=== PATIENT | male | born 1965 | race African-American/Black ===

== ENCOUNTER 2016-12-12 08:16 | Inpatient (IN) | payer OTHER ==
[2016-12-12 10:19] VITALS: BMI 24.5
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
[2016-12-12] MEDS ORDERED: MAGNESIUM CITRATE 300 ML BOTTLE PO PRN (12:52)
[2016-12-12] MEDS ORDERED: LOPERAMIDE HCL 2 MG CAPSULE PO PRN (12:52)
[2016-12-12] MEDS ORDERED: guaiFENesin/D-METHORPHAN HB 10 ML UNIT-DOSE CUPS PO PRN (12:52)
[2016-12-12] MEDS ORDERED: NICOTINE POLACRILEX 4 MG GUM BC PRN (12:52)
[2016-12-12] MEDS ORDERED: P-EPHED 60MG/TRIPROLIDI 2.5MG TABLET PO PRN (12:52)
[2016-12-12] MEDS ORDERED: chlordiazePOXIDE HCL 25 MG CAPSULE PO PRN (12:52)
[2016-12-12] MEDS ORDERED: MAGNESIUM HYDROX 2400MG/30ML ORAL SUSPENSION 30 ML CUP PO PRN (12:52)
[2016-12-12] MEDS ORDERED: MENTHOL/PHENOL 1 EACH UD MM PRN (12:52)
[2016-12-12] MEDS ORDERED: ACETAMINOPHEN 325 MG TABLET (FP) PO PRN (12:52)
[2016-12-12] MEDS ORDERED: MAG HYDROX/AL HYDROX/SIMETH 30 ML UNIT-DOSE CUP PO PRN (12:52)
[2016-12-12] MEDS ORDERED: IBUPROFEN 400 MG TABLET (FP) PO PRN (12:52)
[2016-12-12] MEDS: NICOTINE 21 MG/24 HOURS TOPICAL PATCH TD SCH (13:56)
[2016-12-12] MEDS ORDERED: METHADONE HCL 10 MG TABLET (FOR DETOX USE ONLY) PO ONE ×2 (14:00→23:00)
[2016-12-12] MEDS ORDERED: chlordiazePOXIDE HCL 25 MG CAPSULE PO ONE (14:00)
[2016-12-12] MEDS: metFORMIN HCL 500 MG TABLET (FP) PO SCH (16:30)
[2016-12-12 17:09] LABS: HIV 1 & 2 AB NEGATIVE; HIV 1 AGp24 NEGATIVE
[2016-12-12 17:23] LABS: MCH 28.5 pg (25.7-33.7); MCHC 32.2 g/dl (32.0-35.9); MEAN CELL VOLUME 88.5 fl (80-96); MEAN PLT VOLUME 8.7 fl (7.5-11.1); PLATELET COUNT 280 K/MM3 (134-434); RDW 15.7 % (11.9-15.9); WHITE BLOOD COUNT 10.4 K/mm3 (4.0-10.0)
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
[2016-12-12 17:35] LABS: URINE APPEARANCE CLEAR; URINE BILIRUBIN NEGATIVE (NEGATIVE); URINE BLOOD NEGATIVE (NEGATIVE); URINE COLOR YELLOW; URINE GLUCOSE (UA) NEGATIVE (NEGATIVE); URINE KETONE NEGATIVE (NEGATIVE); URINE LEUK ESTERASE NEGATIVE (NEGATIVE); URINE NITRITE NEGATIVE (NEGATIVE); URINE PROTEIN NEGATIVE (NEGATIVE); URINE UROBILINOGEN NEGATIVE mg/dL (0.2-1.0)
[2016-12-12] MEDS: chlordiazePOXIDE HCL 25 MG CAPSULE PO SCH ×2 (17:35→22:51)
[2016-12-12 17:50] LABS: CALCIUM 8.9 mg/dL (8.5-10.1)
[2016-12-12 17:57] LABS: ALBUMIN 3.6 g/dl (3.4-5.0); ALK PHOS 182 U/L (45-117); ANION GAP 7 (8-16); BILIRUBIN,TOTAL 0.4 mg/dL (0.2-1.0); CO2 33 mmol/L (21-32); CREATININE 0.9 mg/dL (0.7-1.3); GLUCOSE,RANDOM 104 mg/dL (74-106); SGOT/AST 172 U/L (15-37); SGPT/ALT 192 U/L (12-78); TOT PROT 6.6 g/dl (6.4-8.2)
[2016-12-12] MEDS: MIRTAZAPINE 15 MG TABLET (FP) PO SCH (22:50)
[2016-12-12] MEDS: THIAMINE HCL 100 MG TABLET (FP) PO SCH (22:50)
[2016-12-12] MEDS: QUEtiapine FUMARATE 200 MG TABLET PO SCH (22:50)
[2016-12-12] MEDS: diphenhydrAMINE HCL 50 MG CAPSULE PO PRN (22:51)
[2016-12-13] MEDS: chlordiazePOXIDE HCL 25 MG CAPSULE PO SCH ×4 (06:03→22:55)
[2016-12-13] MEDS: glipiZIDE-XL 2.5 MG TAB.ER.24 PO SCH (07:52)
[2016-12-13] MEDS: metFORMIN HCL 500 MG TABLET (FP) PO SCH ×2 (07:52→17:14)
[2016-12-13] MEDS ORDERED: METHADONE HCL 10 MG TABLET (FOR DETOX USE ONLY) PO SCH (10:00)
[2016-12-13] MEDS: PRENATAL VITAMINS W/ FOLIC ACID TABLET (FP) PO SCH (11:05)
[2016-12-13] MEDS: NICOTINE 21 MG/24 HOURS TOPICAL PATCH TD SCH (11:05)
--- NOTE | 2016-12-13 12:40 | PN ---
[facility] CIWA - CIWA Score Nausea/Vomitin-No Nausea/No Vomiting Muscle Tremors: 4-Moderate,w/Arms Extend Anxiety: 4-Mod. Anxious/Guarded Agitation: 4-Moderately Restless Paroxysmal Sweats: 1-Minimal Palms Moist Orientation: 0-Oriented Tacttile Disturbances: 3-Moderate Itch/Numb/Burn Auditory Disturbances: 0-None Visual Disturbances: 0-None Headache: 0-None Present CIWA-Ar Total Score: 16 S COWS - Scale Resting Pulse: 2= [place] 101-120 Sweatin= Chills/Flushing Restless Observation: 3= Extraneous Movement Pupil Size: 0= Normal to Room Light Bone or Joint Aches: 4=Acute Joint/Muscle Pain Runny Nose/ Eye Tearin= Nasal Congestion GI Upset > 30mins: 1= Stomach Cramp Tremor Observation of Outstretched Hands: 2= Slight Tremor Visible Yawning Observation: 2= >3x During Session Anxiety or Irritability: 2=Irritable/Anxious Goose Flesh Skin: 0=Smooth Skin COWS Score: 18 [facility] Progress Note (SOAP) Subjective: ANXIETY,IRRITABILITY SWEATS, FATIGUE. Objective: 12/13/16 12:39 Vital Signs Temperature 97.5 F L 12/13/16 10:18 Pulse Rate 116 H 12/13/16 10:18 Respiratory Rate 18 12/13/16 10:18 Blood Pressure 123/77 12/13/16 10:18 O2 Sat by Pulse Oximetry (%) Laboratory Last Values WBC 10.4 K/mm3 (4.0-10.0) H 12/12/16 13:00 RBC 4.55 M/mm3 (4.00-5.60) 12/12/16 13:00 Hgb 13.0 GM/dL (11.7-16.9) 12/12/16 13:00 Hct 40.3 % (35.4-49) 12/12/16 13:00 MCV 88.5 fl (80-96) 12/12/16 13:00 MCH 28.5 pg (25.7-33.7) 12/12/16 13:00 MCHC 32.2 g/dl (32.0-35.9) 12/12/16 13:00 RDW 15.7 % (11.9-15.9) 12/12/16 13:00 Plt Count 280 K/MM3 (134-434) 12/12/16 13:00 MPV 8.7 fl (7.5-11.1) 12/12/16 13:00 Sodium 143 mmol/L (136-145) 12/12/16 13:00 Potassium 4.4 mmol/L (3.5-5.1) 12/12/16 13:00 Chloride 103 mmol/L (98-107) 12/12/16 13:00 Carbon Dioxide 33 mmol/L (21-32) H D 12/12/16 13:00 Anion Gap 7 (8-16) L 12/12/16 13:00 BUN 18 mg/dL (7-18) 12/12/16 13:00 Creatinine 0.9 mg/dL (0.7-1.3) 12/12/16 13:00 Creat Clearance w eGFR > 60 (>60) 12/12/16 13:00 POC Glucometer 131 UNITS (()) 12/13/16 06:02 Random Glucose 104 mg/dL (74-106) D 12/12/16 13:00 Calcium 8.9 mg/dL (8.5-10.1) 12/12/16 13:00 Total Bilirubin 0.4 mg/dL (0.2-1.0) D 12/12/16 13:00 AST 172 U/L (15-37) H D 12/12/16 13:00 ALT 192 U/L (12-78) H D 12/12/16 13:00 Alkaline Phosphatase 182 U/L (45-117) H D 12/12/16 13:00 Total Protein 6.6 g/dl (6.4-8.2) 12/12/16 13:00 Albumin 3.6 g/dl (3.4-5.0) 12/12/16 13:00 Urine Color Yellow 12/12/16 14:00 Urine Appearance Clear 12/12/16 14:00 Urine pH 5.0 (5.0-8.0) 12/12/16 14:00 Ur Specific [place] 1.025 (1.005-1.025) 12/12/16 14:00 Urine Protein Negative (NEGATIVE) 12/12/16 14:00 Urine Glucose (UA) Negative (NEGATIVE) 12/12/16 14:00 Urine Ketones Negative (NEGATIVE) 12/12/16 14:00 Urine Blood Negative (NEGATIVE) 12/12/16 14:00 Urine Nitrite Negative (NEGATIVE) 12/12/16 14:00 Urine Bilirubin Negative (NEGATIVE) 12/12/16 14:00 Urine Urobilinogen Negative mg/dL (0.2-1.0) 12/12/16 14:00 Ur Leukocyte Esterase Negative (NEGATIVE) 12/12/16 14:00 RPR Titer Nonreactive (NONREACTIVE) 12/12/16 13:00 HIV 1&2 Antibody Screen Negative 12/12/16 11:45 HIV P24 Antigen Negative 12/12/16 11:45 LABS NOTED Assessment: 12/13/16 12:39 WITHDRAWAL SX Plan: CONTINUE DETOX
--- NOTE | 2016-12-13 12:45 | EKG ---
Test Reason : Blood Pressure : / mmHG Vent. Rate : 087 BPM Atrial Rate : 087 BPM P-R Int : 178 ms QRS Dur : 086 ms QT Int : 354 ms P-R-T Axes : 065 044 030 degrees QTc Int : 425 ms NORMAL SINUS RHYTHM NORMAL ECG NO PREVIOUS ECGS AVAILABLE Confirmed by HELEN TIM, CHERELLE ([id number]) on 12/13/2016 12:44:34 PM Referred By: Ti Bermeo Confirmed By:CHERELLE CERVANTES MD
[2016-12-13] MEDS: THIAMINE HCL 100 MG TABLET (FP) PO SCH (22:55)
[2016-12-13] MEDS: QUEtiapine FUMARATE 200 MG TABLET PO SCH (22:55)
[2016-12-13] MEDS: MIRTAZAPINE 15 MG TABLET (FP) PO SCH (22:55)
[2016-12-13] MEDS: diphenhydrAMINE HCL 50 MG CAPSULE PO PRN (22:56)
[2016-12-14] MEDS: chlordiazePOXIDE HCL 25 MG CAPSULE PO SCH ×2 (06:00→11:02)
[2016-12-14] MEDS: glipiZIDE-XL 2.5 MG TAB.ER.24 PO SCH (07:54)
[2016-12-14] MEDS: metFORMIN HCL 500 MG TABLET (FP) PO SCH ×2 (07:54→17:15)
[2016-12-14] MEDS ORDERED: SELENIUM SULFIDE 2.5% LOTION 4 OZ. TP SCH (10:00)
[2016-12-14] MEDS: PRENATAL VITAMINS W/ FOLIC ACID TABLET (FP) PO SCH (11:02)
[2016-12-14] MEDS: NICOTINE 21 MG/24 HOURS TOPICAL PATCH TD SCH (11:02)
[2016-12-14] MEDS: METHADONE HCL 5 MG TABLET (FOR DETOX USE ONLY) PO SCH (11:02)
[2016-12-14] MEDS: VITAMINS A AND D TOPICAL OINTMENT 60 GM TUBE TP SCH (11:03)
--- NOTE | 2016-12-14 11:57 | PN ---
[facility] CIWA - CIWA Score Nausea/Vomitin-No Nausea/No Vomiting Muscle Tremors: 4-Moderate,w/Arms Extend Anxiety: 4-Mod. Anxious/Guarded Agitation: 4-Moderately Restless Paroxysmal Sweats: 1-Minimal Palms Moist Orientation: 0-Oriented Tacttile Disturbances: 3-Moderate Itch/Numb/Burn Auditory Disturbances: 0-None Visual Disturbances: 0-None Headache: 0-None Present CIWA-Ar Total Score: 16 [facility] Progress Note (SOAP) Subjective: ANXIETY,SWEATS,TREMORS. Objective: 12/14/16 11:56 Vital Signs Temperature 99.2 F 12/14/16 09:05 Pulse Rate 106 H 12/14/16 09:05 Respiratory Rate 20 12/14/16 09:05 Blood Pressure 133/92 12/14/16 09:05 O2 Sat by Pulse Oximetry (%) Laboratory Last Values WBC 10.4 K/mm3 (4.0-10.0) H 12/12/16 13:00 RBC 4.55 M/mm3 (4.00-5.60) 12/12/16 13:00 Hgb 13.0 GM/dL (11.7-16.9) 12/12/16 13:00 Hct 40.3 % (35.4-49) 12/12/16 13:00 MCV 88.5 fl (80-96) 12/12/16 13:00 MCH 28.5 pg (25.7-33.7) 12/12/16 13:00 MCHC 32.2 g/dl (32.0-35.9) 12/12/16 13:00 RDW 15.7 % (11.9-15.9) 12/12/16 13:00 Plt Count 280 K/MM3 (134-434) 12/12/16 13:00 MPV 8.7 fl (7.5-11.1) 12/12/16 13:00 Sodium 143 mmol/L (136-145) 12/12/16 13:00 Potassium 4.4 mmol/L (3.5-5.1) 12/12/16 13:00 Chloride 103 mmol/L (98-107) 12/12/16 13:00 Carbon Dioxide 33 mmol/L (21-32) H D 12/12/16 13:00 Anion Gap 7 (8-16) L 12/12/16 13:00 BUN 18 mg/dL (7-18) 12/12/16 13:00 Creatinine 0.9 mg/dL (0.7-1.3) 12/12/16 13:00 Creat Clearance w eGFR > 60 (>60) 12/12/16 13:00 POC Glucometer 152 UNITS (()) 12/14/16 06:02 Random Glucose 104 mg/dL (74-106) D 12/12/16 13:00 Calcium 8.9 mg/dL (8.5-10.1) 12/12/16 13:00 Total Bilirubin 0.4 mg/dL (0.2-1.0) D 12/12/16 13:00 AST 172 U/L (15-37) H D 12/12/16 13:00 ALT 192 U/L (12-78) H D 12/12/16 13:00 Alkaline Phosphatase 182 U/L (45-117) H D 12/12/16 13:00 Total Protein 6.6 g/dl (6.4-8.2) 12/12/16 13:00 Albumin 3.6 g/dl (3.4-5.0) 12/12/16 13:00 Urine Color Yellow 12/12/16 14:00 Urine Appearance Clear 12/12/16 14:00 Urine pH 5.0 (5.0-8.0) 12/12/16 14:00 Ur Specific [place] 1.025 (1.005-1.025) 12/12/16 14:00 Urine Protein Negative (NEGATIVE) 12/12/16 14:00 Urine Glucose (UA) Negative (NEGATIVE) 12/12/16 14:00 Urine Ketones Negative (NEGATIVE) 12/12/16 14:00 Urine Blood Negative (NEGATIVE) 12/12/16 14:00 Urine Nitrite Negative (NEGATIVE) 12/12/16 14:00 Urine Bilirubin Negative (NEGATIVE) 12/12/16 14:00 Urine Urobilinogen Negative mg/dL (0.2-1.0) 12/12/16 14:00 Ur Leukocyte Esterase Negative (NEGATIVE) 12/12/16 14:00 RPR Titer Nonreactive (NONREACTIVE) 12/12/16 13:00 HIV 1&2 Antibody Screen Negative 12/12/16 11:45 HIV P24 Antigen Negative 12/12/16 11:45 Assessment: 12/14/16 11:57 WITHDRAWAL SX Plan: CONTINUE DETOX
[2016-12-14] MEDS: chlordiazePOXIDE 5 MG CAPSULE PO SCH ×2 (17:15→22:43)
[2016-12-14] MEDS: THIAMINE HCL 100 MG TABLET (FP) PO SCH (22:43)
[2016-12-14] MEDS: MIRTAZAPINE 15 MG TABLET (FP) PO SCH (22:43)
[2016-12-14] MEDS: QUEtiapine FUMARATE 200 MG TABLET PO SCH (22:43)
[2016-12-15] MEDS: chlordiazePOXIDE 5 MG CAPSULE PO SCH ×2 (05:28→10:21)
[2016-12-15] MEDS: metFORMIN HCL 500 MG TABLET (FP) PO SCH ×2 (08:03→17:27)
[2016-12-15] MEDS: glipiZIDE-XL 2.5 MG TAB.ER.24 PO SCH (08:03)
[2016-12-15] MEDS: VITAMINS A AND D TOPICAL OINTMENT 60 GM TUBE TP SCH (10:21)
[2016-12-15] MEDS: METHADONE HCL 5 MG TABLET (FOR DETOX USE ONLY) PO SCH (10:21)
[2016-12-15] MEDS: PRENATAL VITAMINS W/ FOLIC ACID TABLET (FP) PO SCH (10:21)
[2016-12-15] MEDS: NICOTINE 21 MG/24 HOURS TOPICAL PATCH TD SCH (10:21)
[2016-12-15 10:52] LABS: ALBUMIN 3.1 g/dl (3.4-5.0); ALK PHOS 136 U/L (45-117); ANION GAP 6 (8-16); BILIRUBIN,TOTAL 0.2 mg/dL (0.2-1.0); CALCIUM 8.4 mg/dL (8.5-10.1); CO2 30 mmol/L (21-32); CREATININE 0.8 mg/dL (0.7-1.3); GLUCOSE,RANDOM 123 mg/dL (74-106); SGOT/AST 36 U/L (15-37); SGPT/ALT 89 U/L (12-78)
--- NOTE | 2016-12-15 12:04 | PN ---
[facility] Progress Note (SOAP) Subjective: ANXIETY,SWEATS,CHILLS, FATIGUE. Objective: 12/15/16 12:03 Vital Signs Temperature 97.6 F 12/15/16 10:07 Pulse Rate 11 L 12/15/16 10:07 Respiratory Rate 20 12/15/16 10:07 Blood Pressure 138/88 12/15/16 10:07 O2 Sat by Pulse Oximetry (%) Laboratory Last Values WBC 10.4 K/mm3 (4.0-10.0) H 12/12/16 13:00 RBC 4.55 M/mm3 (4.00-5.60) 12/12/16 13:00 Hgb 13.0 GM/dL (11.7-16.9) 12/12/16 13:00 Hct 40.3 % (35.4-49) 12/12/16 13:00 MCV 88.5 fl (80-96) 12/12/16 13:00 MCH 28.5 pg (25.7-33.7) 12/12/16 13:00 MCHC 32.2 g/dl (32.0-35.9) 12/12/16 13:00 RDW 15.7 % (11.9-15.9) 12/12/16 13:00 Plt Count 280 K/MM3 (134-434) 12/12/16 13:00 MPV 8.7 fl (7.5-11.1) 12/12/16 13:00 Sodium 141 mmol/L (136-145) 12/15/16 07:00 Potassium 4.6 mmol/L (3.5-5.1) 12/15/16 07:00 Chloride 105 mmol/L (98-107) 12/15/16 07:00 Carbon Dioxide 30 mmol/L (21-32) 12/15/16 07:00 Anion Gap 6 (8-16) L 12/15/16 07:00 BUN 13 mg/dL (7-18) D 12/15/16 07:00 Creatinine 0.8 mg/dL (0.7-1.3) 12/15/16 07:00 Creat Clearance w eGFR > 60 (>60) 12/15/16 07:00 POC Glucometer 117 UNITS (()) 12/15/16 05:28 Random Glucose 123 mg/dL (74-106) H 12/15/16 07:00 Calcium 8.4 mg/dL (8.5-10.1) L 12/15/16 07:00 Total Bilirubin 0.2 mg/dL (0.2-1.0) D 12/15/16 07:00 AST 36 U/L (15-37) D 12/15/16 07:00 ALT 89 U/L (12-78) H D 12/15/16 07:00 Alkaline Phosphatase 136 U/L (45-117) H D 12/15/16 07:00 Total Protein 6.0 g/dl (6.4-8.2) L 12/15/16 07:00 Albumin 3.1 g/dl (3.4-5.0) L 12/15/16 07:00 Urine Color Yellow 12/12/16 14:00 Urine Appearance Clear 12/12/16 14:00 Urine pH 5.0 (5.0-8.0) 12/12/16 14:00 Ur Specific [place] 1.025 (1.005-1.025) 12/12/16 14:00 Urine Protein Negative (NEGATIVE) 12/12/16 14:00 Urine Glucose (UA) Negative (NEGATIVE) 12/12/16 14:00 Urine Ketones Negative (NEGATIVE) 12/12/16 14:00 Urine Blood Negative (NEGATIVE) 12/12/16 14:00 Urine Nitrite Negative (NEGATIVE) 12/12/16 14:00 Urine Bilirubin Negative (NEGATIVE) 12/12/16 14:00 Urine Urobilinogen Negative mg/dL (0.2-1.0) 12/12/16 14:00 Ur Leukocyte Esterase Negative (NEGATIVE) 12/12/16 14:00 RPR Titer Nonreactive (NONREACTIVE) 12/12/16 13:00 HIV 1&2 Antibody Screen Negative 12/12/16 11:45 HIV P24 Antigen Negative 12/12/16 11:45 Assessment: 12/15/16 12:04 WITHDRAWAL SX Plan: CONTINUE DETOX
[2016-12-15] MEDS: chlordiazePOXIDE HCL 10 MG CAPSULE PO SCH ×2 (17:27→22:43)
[2016-12-15] MEDS: MIRTAZAPINE 15 MG TABLET (FP) PO SCH (22:43)
[2016-12-15] MEDS: QUEtiapine FUMARATE 200 MG TABLET PO SCH (22:43)
[2016-12-15] MEDS: THIAMINE HCL 100 MG TABLET (FP) PO SCH (22:43)
[2016-12-16] MEDS: chlordiazePOXIDE HCL 10 MG CAPSULE PO SCH ×2 (05:36→10:03)
[2016-12-16] MEDS: metFORMIN HCL 500 MG TABLET (FP) PO SCH ×2 (07:01→17:28)
[2016-12-16] MEDS: glipiZIDE-XL 2.5 MG TAB.ER.24 PO SCH (07:01)
[2016-12-16] MEDS ORDERED: METHADONE HCL 10 MG TABLET (FOR DETOX USE ONLY) PO SCH (10:00)
[2016-12-16] MEDS: PRENATAL VITAMINS W/ FOLIC ACID TABLET (FP) PO SCH (10:03)
[2016-12-16] MEDS: NICOTINE 21 MG/24 HOURS TOPICAL PATCH TD SCH (10:03)
[2016-12-16] MEDS: VITAMINS A AND D TOPICAL OINTMENT 60 GM TUBE TP SCH (10:04)
[2016-12-16] MEDS ORDERED: ONDANSETRON *ODT* 4 MG TABLET SL PRN (12:45)
[2016-12-16] MEDS ORDERED: BACITRACIN 0.9 GM PACKET TP SCH (13:00)
--- NOTE | 2016-12-16 21:05 | PN ---
[facility] Progress Note (SOAP) Subjective: Interrupted Sleep, Anxious, H/A, Nausea. Objective: PT. A & O X 3, OBSERVED AMBULATING ON UNIT. NO ACUTE DISTRESS. PT. DENIES CHEST PAIN. 12/16/16 21:03 Vital Signs Temperature 97.8 F 12/16/16 17:54 Pulse Rate 98 H 12/16/16 17:54 Respiratory Rate 18 12/16/16 17:54 Blood Pressure 114/66 12/16/16 17:54 O2 Sat by Pulse Oximetry (%) Laboratory Tests 12/12/16 12/12/16 12/12/16 10:30 11:45 13:00 WBC 10.4 H RBC 4.55 Hgb 13.0 Hct 40.3 MCV 88.5 MCH 28.5 MCHC 32.2 RDW 15.7 Plt Count 280 MPV 8.7 Sodium Potassium Chloride Carbon Dioxide Anion Gap BUN Creatinine Creat Clearance w eGFR POC Glucometer 109 Random Glucose Calcium Total Bilirubin AST ALT Alkaline Phosphatase Total Protein Albumin Urine Color Urine Appearance Urine pH Ur Specific [place] Urine Protein Urine Glucose (UA) Urine Ketones Urine Blood Urine Nitrite Urine Bilirubin Urine Urobilinogen Ur Leukocyte Esterase RPR Titer HIV 1&2 Antibody Screen Negative HIV P24 Antigen Negative 12/12/16 12/12/16 12/12/16 13:00 13:00 14:00 WBC RBC Hgb Hct MCV MCH MCHC RDW Plt Count MPV Sodium 143 Potassium 4.4 Chloride 103 Carbon Dioxide 33 H D Anion Gap 7 L BUN 18 Creatinine 0.9 Creat Clearance w eGFR > 60 POC Glucometer Random Glucose 104 D Calcium 8.9 Total Bilirubin 0.4 D AST 172 H D ALT 192 H D Alkaline Phosphatase 182 H D Total Protein 6.6 Albumin 3.6 Urine Color Yellow Urine Appearance Clear Urine pH 5.0 Ur Specific [place] 1.025 Urine Protein Negative Urine Glucose (UA) Negative Urine Ketones Negative Urine Blood Negative Urine Nitrite Negative Urine Bilirubin Negative Urine Urobilinogen Negative Ur Leukocyte Esterase Negative RPR Titer Nonreactive HIV 1&2 Antibody Screen HIV P24 Antigen 12/12/16 12/13/16 12/13/16 16:24 06:02 16:23 WBC RBC Hgb Hct MCV MCH MCHC RDW Plt Count MPV Sodium Potassium Chloride Carbon Dioxide Anion Gap BUN Creatinine Creat Clearance w eGFR POC Glucometer 148 131 143 Random Glucose Calcium Total Bilirubin AST ALT Alkaline Phosphatase Total Protein Albumin Urine Color Urine Appearance Urine pH Ur Specific [place] Urine Protein Urine Glucose (UA) Urine Ketones Urine Blood Urine Nitrite Urine Bilirubin Urine Urobilinogen Ur Leukocyte Esterase RPR Titer HIV 1&2 Antibody Screen HIV P24 Antigen 12/14/16 12/14/16 12/15/16 06:02 16:18 00:30 WBC RBC Hgb Hct MCV MCH MCHC RDW Plt Count MPV Sodium Potassium Chloride Carbon Dioxide Anion Gap BUN Creatinine Creat Clearance w eGFR POC Glucometer 152 124 195 Random Glucose Calcium Total Bilirubin AST ALT Alkaline Phosphatase Total Protein Albumin Urine Color Urine Appearance Urine pH Ur Specific [place] Urine Protein Urine Glucose (UA) Urine Ketones Urine Blood Urine Nitrite Urine Bilirubin Urine Urobilinogen Ur Leukocyte Esterase RPR Titer HIV 1&2 Antibody Screen HIV P24 Antigen 12/15/16 12/15/16 12/15/16 05:28 07:00 16:18 WBC RBC Hgb Hct MCV MCH MCHC RDW Plt Count MPV Sodium 141 Potassium 4.6 Chloride 105 Carbon Dioxide 30 Anion Gap 6 L BUN 13 D Creatinine 0.8 Creat Clearance w eGFR > 60 POC Glucometer 117 145 Random Glucose 123 H Calcium 8.4 L Total Bilirubin 0.2 D AST 36 D ALT 89 H D Alkaline Phosphatase 136 H D Total Protein 6.0 L Albumin 3.1 L Urine Color Urine Appearance Urine pH Ur Specific [place] Urine Protein Urine Glucose (UA) Urine Ketones Urine Blood Urine Nitrite Urine Bilirubin Urine Urobilinogen Ur Leukocyte Esterase RPR Titer HIV 1&2 Antibody Screen HIV P24 Antigen 12/16/16 12/16/16 05:35 16:19 WBC RBC Hgb Hct MCV MCH MCHC RDW Plt Count MPV Sodium Potassium Chloride Carbon Dioxide Anion Gap BUN Creatinine Creat Clearance w eGFR POC Glucometer 151 111 Random Glucose Calcium Total Bilirubin AST ALT Alkaline Phosphatase Total Protein Albumin Urine Color Urine Appearance Urine pH Ur Specific [place] Urine Protein Urine Glucose (UA) Urine Ketones Urine Blood Urine Nitrite Urine Bilirubin Urine Urobilinogen Ur Leukocyte Esterase RPR Titer HIV 1&2 Antibody Screen HIV P24 Antigen LABS NOTED. RESULTS OF REPEAT CMP NOTED. 12/16/16 21:06 Assessment: 12/16/16 21:04 WITHDRAWAL SYMPTOMS. Plan: CONTINUE DETOX.
[2016-12-16] MEDS: QUEtiapine FUMARATE 200 MG TABLET PO SCH (22:38)
[2016-12-16] MEDS: MIRTAZAPINE 15 MG TABLET (FP) PO SCH (22:38)
[2016-12-16] MEDS: THIAMINE HCL 100 MG TABLET (FP) PO SCH (22:38)
[2016-12-16] MEDS: diphenhydrAMINE HCL 50 MG CAPSULE PO PRN (22:40)
[2016-12-17] MEDS ORDERED: METHADONE HCL 5 MG TABLET (FOR DETOX USE ONLY) PO SCH (06:00)
[2016-12-17 06:25] VITALS: BP 146/89; PULSE 92; TEMP 98.1
[2016-12-17] MEDS: metFORMIN HCL 500 MG TABLET (FP) PO SCH (07:43)
[2016-12-17] MEDS: glipiZIDE-XL 2.5 MG TAB.ER.24 PO SCH (07:45)
--- NOTE | 2016-12-17 19:15 | DS ---
[facility] Detox Discharge Summary Admission Date: 12/12/16 Discharge Date: 12/17/16 - History Present History: Alcohol Dependence, Opioid Dependence Additional Comments: PATIENT ADVISED TO CONSIDER LOCAL OUTPATIENT 12-STEP / NA / AA OUTPATIENT PROGRAMS FOR FOLLOW-UP AFTERCARE. PATIENT DISCHARGED FROM UNIT IN STABLE MEDICAL CONDITION. Pertinent Past History: NIDDM, Chronic Low Back Pain, Insomnia. - Physical Exam Results Vital Signs: Vital Signs Temperature 98.1 F 12/17/16 06:24 Pulse Rate 92 H 12/17/16 06:24 Respiratory Rate 18 12/17/16 06:24 Blood Pressure 146/89 12/17/16 06:24 O2 Sat by Pulse Oximetry (%) Pertinent Admission Physical Exam Findings: WITHDRAWAL SYMPTOMS. Laboratory Tests 12/12/16 12/12/16 12/12/16 10:30 11:45 13:00 WBC 10.4 H RBC 4.55 Hgb 13.0 Hct 40.3 MCV 88.5 MCH 28.5 MCHC 32.2 RDW 15.7 Plt Count 280 MPV 8.7 Sodium Potassium Chloride Carbon Dioxide Anion Gap BUN Creatinine Creat Clearance w eGFR POC Glucometer 109 Random Glucose Calcium Total Bilirubin AST ALT Alkaline Phosphatase Total Protein Albumin Urine Color Urine Appearance Urine pH Ur Specific [place] Urine Protein Urine Glucose (UA) Urine Ketones Urine Blood Urine Nitrite Urine Bilirubin Urine Urobilinogen Ur Leukocyte Esterase RPR Titer HIV 1&2 Antibody Screen Negative HIV P24 Antigen Negative 12/12/16 12/12/16 12/12/16 13:00 13:00 14:00 WBC RBC Hgb Hct MCV MCH MCHC RDW Plt Count MPV Sodium 143 Potassium 4.4 Chloride 103 Carbon Dioxide 33 H D Anion Gap 7 L BUN 18 Creatinine 0.9 Creat Clearance w eGFR > 60 POC Glucometer Random Glucose 104 D Calcium 8.9 Total Bilirubin 0.4 D AST 172 H D ALT 192 H D Alkaline Phosphatase 182 H D Total Protein 6.6 Albumin 3.6 Urine Color Yellow Urine Appearance Clear Urine pH 5.0 Ur Specific [place] 1.025 Urine Protein Negative Urine Glucose (UA) Negative Urine Ketones Negative Urine Blood Negative Urine Nitrite Negative Urine Bilirubin Negative Urine Urobilinogen Negative Ur Leukocyte Esterase Negative RPR Titer Nonreactive HIV 1&2 Antibody Screen HIV P24 Antigen 12/12/16 12/13/16 12/13/16 16:24 06:02 16:23 WBC RBC Hgb Hct MCV MCH MCHC RDW Plt Count MPV Sodium Potassium Chloride Carbon Dioxide Anion Gap BUN Creatinine Creat Clearance w eGFR POC Glucometer 148 131 143 Random Glucose Calcium Total Bilirubin AST ALT Alkaline Phosphatase Total Protein Albumin Urine Color Urine Appearance Urine pH Ur Specific [place] Urine Protein Urine Glucose (UA) Urine Ketones Urine Blood Urine Nitrite Urine Bilirubin Urine Urobilinogen Ur Leukocyte Esterase RPR Titer HIV 1&2 Antibody Screen HIV P24 Antigen 12/14/16 12/14/16 12/15/16 06:02 16:18 00:30 WBC RBC Hgb Hct MCV MCH MCHC RDW Plt Count MPV Sodium Potassium Chloride Carbon Dioxide Anion Gap BUN Creatinine Creat Clearance w eGFR POC Glucometer 152 124 195 Random Glucose Calcium Total Bilirubin AST ALT Alkaline Phosphatase Total Protein Albumin Urine Color Urine Appearance Urine pH Ur Specific [place] Urine Protein Urine Glucose (UA) Urine Ketones Urine Blood Urine Nitrite Urine Bilirubin Urine Urobilinogen Ur Leukocyte Esterase RPR Titer HIV 1&2 Antibody Screen HIV P24 Antigen 12/15/16 12/15/16 12/15/16 05:28 07:00 16:18 WBC RBC Hgb Hct MCV MCH MCHC RDW Plt Count MPV Sodium 141 Potassium 4.6 Chloride 105 Carbon Dioxide 30 Anion Gap 6 L BUN 13 D Creatinine 0.8 Creat Clearance w eGFR > 60 POC Glucometer 117 145 Random Glucose 123 H Calcium 8.4 L Total Bilirubin 0.2 D AST 36 D ALT 89 H D Alkaline Phosphatase 136 H D Total Protein 6.0 L Albumin 3.1 L Urine Color Urine Appearance Urine pH Ur Specific [place] Urine Protein Urine Glucose (UA) Urine Ketones Urine Blood Urine Nitrite Urine Bilirubin Urine Urobilinogen Ur Leukocyte Esterase RPR Titer HIV 1&2 Antibody Screen HIV P24 Antigen 12/16/16 12/16/16 12/17/16 05:35 16:19 05:59 WBC RBC Hgb Hct MCV MCH MCHC RDW Plt Count MPV Sodium Potassium Chloride Carbon Dioxide Anion Gap BUN Creatinine Creat Clearance w eGFR POC Glucometer 151 111 146 Random Glucose Calcium Total Bilirubin AST ALT Alkaline Phosphatase Total Protein Albumin Urine Color Urine Appearance Urine pH Ur Specific [place] Urine Protein Urine Glucose (UA) Urine Ketones Urine Blood Urine Nitrite Urine Bilirubin Urine Urobilinogen Ur Leukocyte Esterase RPR Titer HIV 1&2 Antibody Screen HIV P24 Antigen LABS NOTED. - Treatment Hospital Course: Detox Protocol Followed, Detoxed Safely, Responded well, Discharged Condition Good Patient has Accepted a Rehab Referral to: PT GOING HOME; ADVISED TO CONSIDER 12- STEP/NA/AA PROGRAMS FOR AFTERCARE. - Medication Discharge Medications: Ambulatory Orders Glipizide [Glipizide ER] 2.5 mg PO DAILY #30 tab.er.24 02/09/15 Mirtazapine [Remeron -] 15 mg PO HS #30 tablet 07/20/15 Quetiapine Fumarate [Seroquel -] 200 mg PO HS #30 tablet 07/20/15 Mirtazapine [Remeron -] 15 mg PO HS #30 tablet 12/12/16 Quetiapine Fumarate [Seroquel -] 200 mg PO HS #30 tab 12/12/16 Glipizide [Glipizide ER] 2.5 mg PO DAILY #30 tab.er.24 12/17/16 Metformin HCl [Glucophage -] 500 mg PO BID #60 tablet 12/17/16 - Diagnosis (1) Alcohol dependence with withdrawal, uncomplicated Status: Acute (2) Insomnia Status: Acute Qualifiers: Insomnia type: unspecified Qualified Code(s): G47.00 - Insomnia, unspecified (3) Nicotine dependence Status: Chronic Qualifiers: Nicotine product type: cigarettes Substance use status: in withdrawal Qualified Code(s): F17.213 - Nicotine dependence, cigarettes, with withdrawal (4) Opioid dependence with withdrawal Status: Acute (5) Substance induced mood disorder Status: Acute (6) Type 2 diabetes mellitus Status: Chronic Qualifiers: Diabetes mellitus complication status: without complication Diabetes mellitus group home insulin use: without termite technician use Qualified Code(s): E11.9 - Type 2 diabetes mellitus without complications (7) Chronic LBP Status: Chronic Qualifiers: Back pain laterality: unspecified Sciatica presence: unspecified whether sciatica present Qualified Code(s): M54.5 - Low back pain; G89.29 - Other chronic pain - AMA Did Patient Leave Against Medical Advice: No
== END 2016-12-17 09:18 | disposition home or self-care (01) | DRG 773 ==
LOC: YASAS 08:16 → Y3N 11:57
PROVIDERS: ADMIT Internal Medicine Addiction Medicine; ATTEND Internal Medicine Addiction Medicine
PROC: HZ2ZZZZ Detoxification Services for Substance Abuse Treatment (ICD-10-PCS; principal; 2016-12-12)
DX: F11.23 Opioid dependence with withdrawal (principal); F10.230 Alcohol dependence with withdrawal, uncomplicated; F10.220 Alcohol dependence with intoxication, uncomplicated; F17.213 Nicotine dependence, cigarettes, with withdrawal; F19.24 Other psychoactive substance dependence with psychoactive substance-induced mood disorder; E11.9 Type 2 diabetes mellitus without complications; G47.00 Insomnia, unspecified; M54.5 Low back pain; G89.29 Other chronic pain; Z91.013 Allergy to seafood; Z79.84 Long term (current) use of oral hypoglycemic drugs; Z59.0 Homelessness
CPT/HCPCS: 36415; 80053; 81003; 85027; 86593; 87389; 93005; 93010

== ENCOUNTER 2017-03-09 08:42 | Inpatient (IN) | payer OTHER ==
[2017-03-09 08:55] VITALS: BMI 24.4
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
[2017-03-09] MEDS ORDERED: chlordiazePOXIDE HCL 25 MG CAPSULE PO PRN (11:56)
[2017-03-09] MEDS ORDERED: MAGNESIUM CITRATE 300 ML BOTTLE PO PRN (11:56)
[2017-03-09] MEDS ORDERED: P-EPHED 60MG/TRIPROLIDI 2.5MG TABLET PO PRN (11:56)
[2017-03-09] MEDS ORDERED: MAG HYDROX/AL HYDROX/SIMETH 30 ML UNIT-DOSE CUP PO PRN (11:56)
[2017-03-09] MEDS ORDERED: NICOTINE POLACRILEX 4 MG GUM BC PRN (11:56)
[2017-03-09] MEDS ORDERED: guaiFENesin/D-METHORPHAN HB 10 ML UNIT-DOSE CUPS PO PRN (11:56)
[2017-03-09] MEDS ORDERED: MENTHOL/PHENOL 1 EACH UD MM PRN (11:56)
[2017-03-09] MEDS ORDERED: hydrOXYzine PAMOATE 50 MG CAPSULE (FP) PO PRN (11:56)
[2017-03-09] MEDS ORDERED: IBUPROFEN 400 MG TABLET (FP) PO PRN (11:56)
[2017-03-09] MEDS ORDERED: ACETAMINOPHEN 325 MG TABLET (FP) PO PRN (11:56)
[2017-03-09] MEDS ORDERED: MAGNESIUM HYDROX 2400MG/30ML ORAL SUSPENSION 30 ML CUP PO PRN (11:56)
[2017-03-09] MEDS ORDERED: LOPERAMIDE HCL 2 MG CAPSULE PO PRN (11:56)
[2017-03-09] MEDS: chlordiazePOXIDE HCL 25 MG CAPSULE PO ONE ×2 (13:41→13:42)
[2017-03-09] MEDS ORDERED: cloNIDine HCL 0.1 MG TABLET PO ONE (13:45)
[2017-03-09] MEDS ORDERED: METHADONE HCL 10 MG TABLET (FOR DETOX USE ONLY) PO ONE ×2 (13:45→23:00)
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
[2017-03-09] MEDS: chlordiazePOXIDE HCL 25 MG CAPSULE PO SCH ×2 (17:31→22:07)
[2017-03-09] MEDS: metFORMIN HCL 500 MG TABLET (FP) PO SCH (17:32)
[2017-03-09] MEDS: MIRTAZAPINE 15 MG TABLET (FP) PO SCH (22:08)
[2017-03-09] MEDS: QUEtiapine FUMARATE 200 MG TABLET PO SCH (22:08)
[2017-03-09] MEDS: THIAMINE HCL 100 MG TABLET (FP) PO SCH (22:08)
[2017-03-10 02:00] LABS: URINE APPEARANCE CLEAR; URINE BILIRUBIN NEGATIVE (NEGATIVE); URINE BLOOD NEGATIVE (NEGATIVE); URINE COLOR YELLOW; URINE GLUCOSE (UA) NEGATIVE (NEGATIVE); URINE KETONE NEGATIVE (NEGATIVE); URINE NITRITE NEGATIVE (NEGATIVE); URINE PROTEIN NEGATIVE (NEGATIVE); URINE UROBILINOGEN NEGATIVE mg/dL (0.2-1.0)
[2017-03-10] MEDS: chlordiazePOXIDE HCL 25 MG CAPSULE PO SCH ×4 (05:15→22:11)
[2017-03-10] MEDS: metFORMIN HCL 500 MG TABLET (FP) PO SCH ×2 (06:30→17:38)
[2017-03-10] MEDS ORDERED: METHADONE HCL 10 MG TABLET (FOR DETOX USE ONLY) PO SCH (10:00)
[2017-03-10] MEDS: PRENATAL VITAMINS W/ FOLIC ACID TABLET (FP) PO SCH (10:15)
[2017-03-10 10:16] LABS: MCH 27.5 pg (25.7-33.7); MCHC 31.5 g/dl (32.0-35.9); MEAN CELL VOLUME 87.3 fl (80-96); MEAN PLT VOLUME 8.3 fl (7.5-11.1); PLATELET COUNT 329 K/MM3 (134-434); RDW 15.6 % (11.9-15.9); WHITE BLOOD COUNT 11.9 K/mm3 (4.0-10.0)
[2017-03-10] MEDS: NICOTINE 21 MG/24 HOURS TOPICAL PATCH TD SCH (10:16)
[2017-03-10 10:56] LABS: ALBUMIN 3.8 g/dl (3.4-5.0); ALK PHOS 110 U/L (45-117); ANION GAP 6 (8-16); BILIRUBIN,TOTAL 0.4 mg/dL (0.2-1.0); CALCIUM 8.7 mg/dL (8.5-10.1); CO2 28 mmol/L (21-32); CREATININE 1.2 mg/dL (0.7-1.3); GLUCOSE,RANDOM 82 mg/dL (74-106); SGOT/AST 46 U/L (15-37); SGPT/ALT 58 U/L (12-78); TOT PROT 6.8 g/dl (6.4-8.2)
[2017-03-10 12:01] LABS: URINE LEUK ESTERASE Negative (NEGATIVE)
[2017-03-10] MEDS: glipiZIDE-XL 2.5 MG TAB.ER.24 PO SCH (12:34)
--- NOTE | 2017-03-10 12:50 | PN ---
S CIWA - CIWA Score Nausea/Vomitin Muscle Tremors: 3 Anxiety: 3 Agitation: 3 Paroxysmal Sweats: 1-Minimal Palms Moist Orientation: 0-Oriented Tacttile Disturbances: 1-Very Mild Itch/Numbness Auditory Disturbances: 1-Very Mild Visual Disturbances: 0-None Headache: 2-Mild CIWA-Ar Total Score: 17 BHS COWS - Scale Resting Pulse: 1= [place] 81-100 Sweatin=Flushed/Facial Moisture Restless Observation: 3= Extraneous Movement Pupil Size: 1= Pupils >than Normal Bone or Joint Aches: 2= Severe Diffuse Aches Runny Nose/ Eye Tearin= Runny Nose/Eyes GI Upset > 30mins: 2= Nausea/Diarrhea Tremor Observation of Outstretched Hands: 2= Slight Tremor Visible Yawning Observation: 1= 1-2x During Session Anxiety or Irritability: 2=Irritable/Anxious Goose Flesh Skin: 0=Smooth Skin COWS Score: 18 S Progress Note (SOAP) Subjective: alert,irritable,anxious,tremor,pain in the body,back,interrupted sleep Objective: 03/10/17 13:45 Vital Signs Temperature 97.7 F 03/10/17 11:25 Pulse Rate 98 H 03/10/17 11:25 Respiratory Rate 18 03/10/17 11:25 Blood Pressure 128/78 03/10/17 11:25 O2 Sat by Pulse Oximetry (%) ekg nsr,normal ecg 03/10/17 13:46 Laboratory Last Values WBC 11.9 K/mm3 (4.0-10.0) H 03/10/17 06:00 RBC 4.64 M/mm3 (4.00-5.60) 03/10/17 06:00 Hgb 12.8 GM/dL (11.7-16.9) 03/10/17 06:00 Hct 40.5 % (35.4-49) 03/10/17 06:00 MCV 87.3 fl (80-96) 03/10/17 06:00 MCH 27.5 pg (25.7-33.7) 03/10/17 06:00 MCHC 31.5 g/dl (32.0-35.9) L 03/10/17 06:00 RDW 15.6 % (11.9-15.9) 03/10/17 06:00 Plt Count 329 K/MM3 (134-434) 03/10/17 06:00 MPV 8.3 fl (7.5-11.1) 03/10/17 06:00 Manual Slide Review No Result Required. 03/10/17 06:00 Sodium 140 mmol/L (136-145) 03/10/17 06:00 Potassium 4.4 mmol/L (3.5-5.1) 03/10/17 06:00 Chloride 106 mmol/L (98-107) 03/10/17 06:00 Carbon Dioxide 28 mmol/L (21-32) 03/10/17 06:00 Anion Gap 6 (8-16) L 03/10/17 06:00 BUN 14 mg/dL (7-18) 03/10/17 06:00 Creatinine 1.2 mg/dL (0.7-1.3) D 03/10/17 06:00 Creat Clearance w eGFR > 60 (>60) 03/10/17 06:00 POC Glucometer 137 UNITS (80-120) 03/10/17 05:16 Random Glucose 82 mg/dL (74-106) D 03/10/17 06:00 Calcium 8.7 mg/dL (8.5-10.1) 03/10/17 06:00 Total Bilirubin 0.4 mg/dL (0.2-1.0) D 03/10/17 06:00 AST 46 U/L (15-37) H D 03/10/17 06:00 ALT 58 U/L (12-78) D 03/10/17 06:00 Alkaline Phosphatase 110 U/L (45-117) 03/10/17 06:00 Total Protein 6.8 g/dl (6.4-8.2) 03/10/17 06:00 Albumin 3.8 g/dl (3.4-5.0) D 03/10/17 06:00 Urine Color Yellow 03/09/17 18:09 Urine Appearance Clear 03/09/17 18:09 Urine pH 5.0 (5.0-8.0) 03/09/17 18:09 Ur Specific [place] 1.019 (1.001-1.035) 03/09/17 18:09 Urine Protein Negative (NEGATIVE) 03/09/17 18:09 Urine Glucose (UA) Negative (NEGATIVE) 03/09/17 18:09 Urine Ketones Negative (NEGATIVE) 03/09/17 18:09 Urine Blood Negative (NEGATIVE) 03/09/17 18:09 Urine Nitrite Negative (NEGATIVE) 03/09/17 18:09 Urine Bilirubin Negative (NEGATIVE) 03/09/17 18:09 Urine Urobilinogen Negative mg/dL (0.2-1.0) 03/09/17 18:09 Ur Leukocyte Esterase Negative (NEGATIVE) 03/09/17 18:09 RPR Titer Nonreactive (NONREACTIVE) 03/10/17 06:00 Assessment: 03/10/17 13:48 withdrawal symptom Plan: continue detox,bgm monitoring
[2017-03-10] MEDS: QUEtiapine FUMARATE 200 MG TABLET PO SCH (22:10)
[2017-03-10] MEDS: cloNIDine HCL 0.1 MG TABLET PO SCH (22:10)
[2017-03-10] MEDS: THIAMINE HCL 100 MG TABLET (FP) PO SCH (22:10)
[2017-03-10] MEDS: CYCLOBENZAPRINE HCL 10 MG TABLET (FP) PO PRN (22:11)
[2017-03-10] MEDS: MIRTAZAPINE 15 MG TABLET (FP) PO SCH (22:11)
[2017-03-11] MEDS: chlordiazePOXIDE HCL 25 MG CAPSULE PO SCH ×2 (06:12→10:24)
[2017-03-11] MEDS: metFORMIN HCL 500 MG TABLET (FP) PO SCH ×2 (06:34→17:45)
[2017-03-11] MEDS: METHADONE HCL 5 MG TABLET (FOR DETOX USE ONLY) PO SCH (10:24)
[2017-03-11] MEDS: NICOTINE 21 MG/24 HOURS TOPICAL PATCH TD SCH (10:24)
[2017-03-11] MEDS: PRENATAL VITAMINS W/ FOLIC ACID TABLET (FP) PO SCH (10:24)
[2017-03-11] MEDS: cloNIDine HCL 0.1 MG TABLET PO SCH ×2 (10:24→22:05)
[2017-03-11] MEDS: glipiZIDE-XL 2.5 MG TAB.ER.24 PO SCH (10:24)
--- NOTE | 2017-03-11 10:34 | PN ---
S COWS - Scale Resting Pulse: 1= [place] 81-100 Sweatin= Chills/Flushing Restless Observation: 3= Extraneous Movement Pupil Size: 1= Pupils >than Normal Bone or Joint Aches: 2= Severe Diffuse Aches Runny Nose/ Eye Tearin= Runny Nose/Eyes GI Upset > 30mins: 3= Vomiting/Diarrhea Tremor Observation of Outstretched Hands: 2= Slight Tremor Visible Yawning Observation: 1= 1-2x During Session Anxiety or Irritability: 2=Irritable/Anxious Goose Flesh Skin: 0=Smooth Skin COWS Score: 18 S Progress Note (SOAP) Subjective: alert,irritable,anxious,interrupted sleep,pain in the body and back Objective: 03/11/17 10:33 Vital Signs Temperature 97.3 F L 03/11/17 09:42 Pulse Rate 97 H 03/11/17 09:42 Respiratory Rate 16 03/11/17 09:42 Blood Pressure 127/70 03/11/17 09:42 O2 Sat by Pulse Oximetry (%) Laboratory Last Values WBC 11.9 K/mm3 (4.0-10.0) H 03/10/17 06:00 RBC 4.64 M/mm3 (4.00-5.60) 03/10/17 06:00 Hgb 12.8 GM/dL (11.7-16.9) 03/10/17 06:00 Hct 40.5 % (35.4-49) 03/10/17 06:00 MCV 87.3 fl (80-96) 03/10/17 06:00 MCH 27.5 pg (25.7-33.7) 03/10/17 06:00 MCHC 31.5 g/dl (32.0-35.9) L 03/10/17 06:00 RDW 15.6 % (11.9-15.9) 03/10/17 06:00 Plt Count 329 K/MM3 (134-434) 03/10/17 06:00 MPV 8.3 fl (7.5-11.1) 03/10/17 06:00 Manual Slide Review No Result Required. 03/10/17 06:00 Sodium 140 mmol/L (136-145) 03/10/17 06:00 Potassium 4.4 mmol/L (3.5-5.1) 03/10/17 06:00 Chloride 106 mmol/L (98-107) 03/10/17 06:00 Carbon Dioxide 28 mmol/L (21-32) 03/10/17 06:00 Anion Gap 6 (8-16) L 03/10/17 06:00 BUN 14 mg/dL (7-18) 03/10/17 06:00 Creatinine 1.2 mg/dL (0.7-1.3) D 03/10/17 06:00 Creat Clearance w eGFR > 60 (>60) 03/10/17 06:00 POC Glucometer 137 UNITS (80-120) 03/10/17 05:16 Random Glucose 82 mg/dL (74-106) D 03/10/17 06:00 Calcium 8.7 mg/dL (8.5-10.1) 03/10/17 06:00 Total Bilirubin 0.4 mg/dL (0.2-1.0) D 03/10/17 06:00 AST 46 U/L (15-37) H D 03/10/17 06:00 ALT 58 U/L (12-78) D 03/10/17 06:00 Alkaline Phosphatase 110 U/L (45-117) 03/10/17 06:00 Total Protein 6.8 g/dl (6.4-8.2) 03/10/17 06:00 Albumin 3.8 g/dl (3.4-5.0) D 03/10/17 06:00 Urine Color Yellow 03/09/17 18:09 Urine Appearance Clear 03/09/17 18:09 Urine pH 5.0 (5.0-8.0) 03/09/17 18:09 Ur Specific [place] 1.019 (1.001-1.035) 03/09/17 18:09 Urine Protein Negative (NEGATIVE) 03/09/17 18:09 Urine Glucose (UA) Negative (NEGATIVE) 03/09/17 18:09 Urine Ketones Negative (NEGATIVE) 03/09/17 18:09 Urine Blood Negative (NEGATIVE) 03/09/17 18:09 Urine Nitrite Negative (NEGATIVE) 03/09/17 18:09 Urine Bilirubin Negative (NEGATIVE) 03/09/17 18:09 Urine Urobilinogen Negative mg/dL (0.2-1.0) 03/09/17 18:09 Ur Leukocyte Esterase Negative (NEGATIVE) 03/09/17 18:09 RPR Titer Nonreactive (NONREACTIVE) 03/10/17 06:00 Assessment: 03/11/17 10:36 withdrawal symptom Plan: continue detox,bgm 137,bgm monitoring,cbc,hba1c in am
[2017-03-11] MEDS: chlordiazePOXIDE 5 MG CAPSULE PO SCH ×2 (17:56→22:05)
[2017-03-11] MEDS: MIRTAZAPINE 15 MG TABLET (FP) PO SCH (22:05)
[2017-03-11] MEDS: THIAMINE HCL 100 MG TABLET (FP) PO SCH (22:05)
[2017-03-11] MEDS: QUEtiapine FUMARATE 200 MG TABLET PO SCH (22:05)
[2017-03-12] MEDS: chlordiazePOXIDE 5 MG CAPSULE PO SCH ×2 (05:30→10:16)
[2017-03-12] MEDS: metFORMIN HCL 500 MG TABLET (FP) PO SCH ×2 (07:04→18:29)
[2017-03-12] MEDS: cloNIDine HCL 0.1 MG TABLET PO SCH ×2 (10:16→22:26)
[2017-03-12] MEDS: glipiZIDE-XL 2.5 MG TAB.ER.24 PO SCH (10:17)
[2017-03-12] MEDS: PRENATAL VITAMINS W/ FOLIC ACID TABLET (FP) PO SCH (10:17)
[2017-03-12] MEDS: METHADONE HCL 5 MG TABLET (FOR DETOX USE ONLY) PO SCH (10:17)
[2017-03-12] MEDS: NICOTINE 21 MG/24 HOURS TOPICAL PATCH TD SCH (10:17)
--- NOTE | 2017-03-12 10:58 | PN ---
[facility] Progress Note (SOAP) Subjective: feeling better sweats shakes anxiety Objective: 03/12/17 10:57 Vital Signs Temperature 97.9 F 03/12/17 09:34 Pulse Rate 106 H 03/12/17 09:34 Respiratory Rate 20 03/12/17 09:34 Blood Pressure 146/79 03/12/17 09:34 O2 Sat by Pulse Oximetry (%) Laboratory Tests 03/09/17 03/09/17 03/10/17 10:39 18:09 05:16 WBC Corrected WBC (auto) RBC Hgb Hct MCV MCH MCHC RDW Plt Count MPV Manual Slide Review Platelet Comment Sodium Potassium Chloride Carbon Dioxide Anion Gap BUN Creatinine Creat Clearance w eGFR POC Glucometer 118 137 Random Glucose Hemoglobin A1c % Calcium Total Bilirubin AST ALT Alkaline Phosphatase Total Protein Albumin Urine Color Yellow Urine Appearance Clear Urine pH 5.0 Ur Specific [place] 1.019 Urine Protein Negative Urine Glucose (UA) Negative Urine Ketones Negative Urine Blood Negative Urine Nitrite Negative Urine Bilirubin Negative Urine Urobilinogen Negative Ur Leukocyte Esterase Negative RPR Titer 03/10/17 03/10/17 03/10/17 06:00 06:00 06:00 WBC 11.9 H Corrected WBC (auto) RBC 4.64 Hgb 12.8 Hct 40.5 MCV 87.3 MCH 27.5 MCHC 31.5 L RDW 15.6 Plt Count 329 MPV 8.3 Manual Slide Review No Result Required. Platelet Comment Sodium 140 Potassium 4.4 Chloride 106 Carbon Dioxide 28 Anion Gap 6 L BUN 14 Creatinine 1.2 D Creat Clearance w eGFR > 60 POC Glucometer Random Glucose 82 D Hemoglobin A1c % Calcium 8.7 Total Bilirubin 0.4 D AST 46 H D ALT 58 D Alkaline Phosphatase 110 Total Protein 6.8 Albumin 3.8 D Urine Color Urine Appearance Urine pH Ur Specific [place] Urine Protein Urine Glucose (UA) Urine Ketones Urine Blood Urine Nitrite Urine Bilirubin Urine Urobilinogen Ur Leukocyte Esterase RPR Titer Nonreactive 03/11/17 03/12/17 03/12/17 06:31 05:29 07:00 WBC Cancelled Corrected WBC (auto) Cancelled RBC Cancelled Hgb Cancelled Hct Cancelled MCV Cancelled MCH Cancelled MCHC Cancelled RDW Cancelled Plt Count Cancelled MPV Cancelled Manual Slide Review Cancelled Platelet Comment Cancelled Sodium Potassium Chloride Carbon Dioxide Anion Gap BUN Creatinine Creat Clearance w eGFR POC Glucometer 137 138 Random Glucose Hemoglobin A1c % Calcium Total Bilirubin AST ALT Alkaline Phosphatase Total Protein Albumin Urine Color Urine Appearance Urine pH Ur Specific [place] Urine Protein Urine Glucose (UA) Urine Ketones Urine Blood Urine Nitrite Urine Bilirubin Urine Urobilinogen Ur Leukocyte Esterase RPR Titer 03/12/17 07:00 WBC Corrected WBC (auto) RBC Hgb Hct MCV MCH MCHC RDW Plt Count MPV Manual Slide Review Platelet Comment Sodium Potassium Chloride Carbon Dioxide Anion Gap BUN Creatinine Creat Clearance w eGFR POC Glucometer Random Glucose Hemoglobin A1c % 7.1 H Calcium Total Bilirubin AST ALT Alkaline Phosphatase Total Protein Albumin Urine Color Urine Appearance Urine pH Ur Specific [place] Urine Protein Urine Glucose (UA) Urine Ketones Urine Blood Urine Nitrite Urine Bilirubin Urine Urobilinogen Ur Leukocyte Esterase RPR Titer aaox3 ambulating no acute distress Assessment: 03/12/17 10:58 withdrawal sx Plan: continue detox increase fluids
[2017-03-12] MEDS: chlordiazePOXIDE HCL 10 MG CAPSULE PO SCH ×2 (18:29→22:26)
[2017-03-12] MEDS: QUEtiapine FUMARATE 200 MG TABLET PO SCH (22:26)
[2017-03-12] MEDS: CYCLOBENZAPRINE HCL 10 MG TABLET (FP) PO PRN (22:26)
[2017-03-12] MEDS: MIRTAZAPINE 15 MG TABLET (FP) PO SCH (22:26)
[2017-03-12] MEDS: THIAMINE HCL 100 MG TABLET (FP) PO SCH (22:27)
--- NOTE | 2017-03-13 01:05 | EKG ---
Test Reason : Blood Pressure : / mmHG Vent. Rate : 083 BPM Atrial Rate : 083 BPM P-R Int : 174 ms QRS Dur : 088 ms QT Int : 364 ms P-R-T Axes : 070 051 050 degrees QTc Int : 427 ms NORMAL SINUS RHYTHM NORMAL ECG WHEN COMPARED WITH ECG OF 12-DEC-2016 12:55, NO SIGNIFICANT CHANGE WAS FOUND Confirmed by COMFORT STEWART MD ([id number]) on 03/13/2017 1:05:22 AM Referred By: Confirmed By:COMFORT STEWART MD
[2017-03-13] MEDS: chlordiazePOXIDE HCL 10 MG CAPSULE PO SCH ×2 (06:07→10:16)
[2017-03-13] MEDS: metFORMIN HCL 500 MG TABLET (FP) PO SCH ×2 (06:09→18:29)
[2017-03-13] MEDS ORDERED: METHADONE HCL 10 MG TABLET (FOR DETOX USE ONLY) PO SCH (10:00)
--- NOTE | 2017-03-13 10:10 | PN ---
[facility] Progress Note (SOAP) Subjective: feeling better anxiety Objective: 03/13/17 10:07 Vital Signs Temperature 97.3 F L 03/13/17 06:00 Pulse Rate 84 03/13/17 06:00 Respiratory Rate 18 03/13/17 06:00 Blood Pressure 127/78 03/13/17 06:00 O2 Sat by Pulse Oximetry (%) aaox3 ambulating no acute distress Assessment: 03/13/17 10:09 withdrawals sx Plan: continue detox increase fluids d/c in am
[2017-03-13 10:12] LABS: BASOPHIL 1.2 % (0-2.0); EOSINOPHIL 4.7 % (0-4.5); MCHC 32.4 g/dl (32.0-35.9); MEAN CELL VOLUME 86.3 fl (80-96); MEAN PLT VOLUME 7.9 fl (7.5-11.1); NEUTROPHILS 61.1 % (42.8-82.8); PLATELET COUNT 263 K/MM3 (134-434); RDW 15.2 % (11.9-15.9); WHITE BLOOD COUNT 10.3 K/mm3 (4.0-10.0)
[2017-03-13] MEDS: cloNIDine HCL 0.1 MG TABLET PO SCH ×2 (10:16→22:23)
[2017-03-13] MEDS: PRENATAL VITAMINS W/ FOLIC ACID TABLET (FP) PO SCH (10:16)
[2017-03-13] MEDS: NICOTINE 21 MG/24 HOURS TOPICAL PATCH TD SCH (10:17)
[2017-03-13] MEDS: SUMAtriptan SUCCINATE 25 MG TABLET PO PRN (10:17)
[2017-03-13] MEDS: glipiZIDE-XL 2.5 MG TAB.ER.24 PO SCH (10:17)
[2017-03-13] MEDS: QUEtiapine FUMARATE 200 MG TABLET PO SCH (22:23)
[2017-03-13] MEDS: THIAMINE HCL 100 MG TABLET (FP) PO SCH (22:23)
[2017-03-13] MEDS: MIRTAZAPINE 15 MG TABLET (FP) PO SCH (22:23)
[2017-03-13] MEDS: CYCLOBENZAPRINE HCL 10 MG TABLET (FP) PO PRN (22:23)
[2017-03-14] MEDS: SUMAtriptan SUCCINATE 25 MG TABLET PO PRN (05:16)
[2017-03-14] MEDS ORDERED: METHADONE HCL 5 MG TABLET (FOR DETOX USE ONLY) PO SCH (06:00)
[2017-03-14 06:33] VITALS: BP 126/69; PULSE 97; TEMP 97
[2017-03-14] MEDS: metFORMIN HCL 500 MG TABLET (FP) PO SCH (07:37)
--- NOTE | 2017-03-16 14:34 | DS ---
[facility] Detox Discharge Summary Admission Date: 03/09/17 Discharge Date: 03/14/17 - History Present History: Alcohol Dependence, Cocaine Dependence, Opioid Dependence Additional Comments: abiola will be returing for rehab bed on sunday06/05/2016 Pertinent Past History: anxiety, derpession, insomnia, nictoien depenednecne, DM on medications, PTSD, - Physical Exam Results Vital Signs: Vital Signs Temperature 97.0 F L 03/14/17 06:00 Pulse Rate 97 H 03/14/17 06:00 Respiratory Rate 18 03/14/17 06:00 Blood Pressure 126/69 03/14/17 06:00 O2 Sat by Pulse Oximetry (%) Laboratory Tests 03/09/17 03/09/17 03/10/17 10:39 18:09 05:16 WBC Corrected WBC (auto) RBC Hgb Hct MCV MCH MCHC RDW Plt Count MPV Neutrophils % Lymphocytes % Monocytes % Eosinophils % Basophils % Manual Slide Review Platelet Comment Sodium Potassium Chloride Carbon Dioxide Anion Gap BUN Creatinine Creat Clearance w eGFR POC Glucometer 118 137 Random Glucose Hemoglobin A1c % Calcium Total Bilirubin AST ALT Alkaline Phosphatase Total Protein Albumin Urine Color Yellow Urine Appearance Clear Urine pH 5.0 Ur Specific [place] 1.019 Urine Protein Negative Urine Glucose (UA) Negative Urine Ketones Negative Urine Blood Negative Urine Nitrite Negative Urine Bilirubin Negative Urine Urobilinogen Negative Ur Leukocyte Esterase Negative RPR Titer 03/10/17 03/10/17 03/10/17 06:00 06:00 06:00 WBC 11.9 H Corrected WBC (auto) RBC 4.64 Hgb 12.8 Hct 40.5 MCV 87.3 MCH 27.5 MCHC 31.5 L RDW 15.6 Plt Count 329 MPV 8.3 Neutrophils % Lymphocytes % Monocytes % Eosinophils % Basophils % Manual Slide Review No Result Required. Platelet Comment Sodium 140 Potassium 4.4 Chloride 106 Carbon Dioxide 28 Anion Gap 6 L BUN 14 Creatinine 1.2 D Creat Clearance w eGFR > 60 POC Glucometer Random Glucose 82 D Hemoglobin A1c % Calcium 8.7 Total Bilirubin 0.4 D AST 46 H D ALT 58 D Alkaline Phosphatase 110 Total Protein 6.8 Albumin 3.8 D Urine Color Urine Appearance Urine pH Ur Specific [place] Urine Protein Urine Glucose (UA) Urine Ketones Urine Blood Urine Nitrite Urine Bilirubin Urine Urobilinogen Ur Leukocyte Esterase RPR Titer Nonreactive 1103/12/17 03/12/17 06:31 05:29 07:00 WBC Cancelled Corrected WBC (auto) Cancelled RBC Cancelled Hgb Cancelled Hct Cancelled MCV Cancelled MCH Cancelled MCHC Cancelled RDW Cancelled Plt Count Cancelled MPV Cancelled Neutrophils % Lymphocytes % Monocytes % Eosinophils % Basophils % Manual Slide Review Cancelled Platelet Comment Cancelled Sodium Potassium Chloride Carbon Dioxide Anion Gap BUN Creatinine Creat Clearance w eGFR POC Glucometer 137 138 Random Glucose Hemoglobin A1c % Calcium Total Bilirubin AST ALT Alkaline Phosphatase Total Protein Albumin Urine Color Urine Appearance Urine pH Ur Specific [place] Urine Protein Urine Glucose (UA) Urine Ketones Urine Blood Urine Nitrite Urine Bilirubin Urine Urobilinogen Ur Leukocyte Esterase RPR Titer 03/12/17 03/13/17 03/13/17 07:00 06:08 07:00 WBC 10.3 H Corrected WBC (auto) RBC 4.45 Hgb 12.5 Hct 38.4 MCV 86.3 MCH 28.0 MCHC 32.4 RDW 15.2 Plt Count 263 D MPV 7.9 Neutrophils % 61.1 Lymphocytes % 23.1 Monocytes % 9.9 Eosinophils % 4.7 H Basophils % 1.2 Manual Slide Review Platelet Comment Sodium Potassium Chloride Carbon Dioxide Anion Gap BUN Creatinine Creat Clearance w eGFR POC Glucometer 142 Random Glucose Hemoglobin A1c % 7.1 H Calcium Total Bilirubin AST ALT Alkaline Phosphatase Total Protein Albumin Urine Color Urine Appearance Urine pH Ur Specific [place] Urine Protein Urine Glucose (UA) Urine Ketones Urine Blood Urine Nitrite Urine Bilirubin Urine Urobilinogen Ur Leukocyte Esterase RPR Titer 03/14/17 05:18 WBC Corrected WBC (auto) RBC Hgb Hct MCV MCH MCHC RDW Plt Count MPV Neutrophils % Lymphocytes % Monocytes % Eosinophils % Basophils % Manual Slide Review Platelet Comment Sodium Potassium Chloride Carbon Dioxide Anion Gap BUN Creatinine Creat Clearance w eGFR POC Glucometer 146 Random Glucose Hemoglobin A1c % Calcium Total Bilirubin AST ALT Alkaline Phosphatase Total Protein Albumin Urine Color Urine Appearance Urine pH Ur Specific [place] Urine Protein Urine Glucose (UA) Urine Ketones Urine Blood Urine Nitrite Urine Bilirubin Urine Urobilinogen Ur Leukocyte Esterase RPR Titer Pertinent Admission Physical Exam Findings: withdrawal sx , hyperglycemia - Treatment Hospital Course: Detox Protocol Followed, Detoxed Safely, Responded well, Discharged Condition Good, Rehab Referral Accepted Patient has Accepted a Rehab Referral to: Yes - Medication Discharge Medications: Ambulatory Orders Mirtazapine [Remeron -] 15 mg PO HS #30 tablet 07/20/15 Quetiapine Fumarate [Seroquel -] 200 mg PO HS #30 tablet 07/20/15 Glipizide [Glipizide ER] 2.5 mg PO DAILY #30 tab.er.24 12/17/16 Metformin HCl [Glucophage -] 500 mg PO BID #60 tablet 12/17/16 - Diagnosis (1) Insomnia Status: Acute Qualifiers: Insomnia type: unspecified Qualified Code(s): G47.00 - Insomnia, unspecified (2) Mood disorder Status: Acute (3) Nicotine dependence Status: Acute Qualifiers: Nicotine product type: cigarettes Substance use status: uncomplicated Qualified Code(s): F17.210 - Nicotine dependence, cigarettes, uncomplicated (4) Substance induced mood disorder Status: Acute (5) Alcohol dependence with withdrawal, uncomplicated Status: Chronic (6) Anxiety Status: Chronic (7) Chronic LBP Status: Chronic Qualifiers: Back pain laterality: unspecified (8) Cocaine dependence Status: Chronic Qualifiers: Substance use status: uncomplicated Qualified Code(s): F14.20 - Cocaine dependence, uncomplicated (9) Depression Status: Chronic (10) Opioid dependence with withdrawal Status: Chronic (11) PTSD (post-traumatic stress disorder) Status: Chronic (12) Type 2 diabetes mellitus Status: Chronic Qualifiers: Diabetes mellitus complication status: without complication Diabetes mellitus prison insulin use: without long term care phlebotomist use Qualified Code(s): E11.9 - Type 2 diabetes mellitus without complications
== END 2017-03-14 07:18 | disposition home or self-care (01) | DRG 773 ==
LOC: YASAS 08:42 → Y6N 12:27
PROVIDERS: ADMIT Internal Medicine; ATTEND Internal Medicine
PROC: HZ2ZZZZ Detoxification Services for Substance Abuse Treatment (ICD-10-PCS; principal; 2017-03-09)
DX: F11.23 Opioid dependence with withdrawal (principal); F10.230 Alcohol dependence with withdrawal, uncomplicated; F14.20 Cocaine dependence, uncomplicated; F17.210 Nicotine dependence, cigarettes, uncomplicated; F41.9 Anxiety disorder, unspecified; F43.10 Post-traumatic stress disorder, unspecified; E11.9 Type 2 diabetes mellitus without complications; M54.5 Low back pain; G89.29 Other chronic pain; G47.00 Insomnia, unspecified; Z79.84 Long term (current) use of oral hypoglycemic drugs; Z91.013 Allergy to seafood; Z59.0 Homelessness
CPT/HCPCS: 36415; 80053; 81003; 83036; 85025; 85027; 86593; 93005; 93010

== ENCOUNTER 2017-03-16 12:05 | Inpatient (IN) | payer OTHER ==
[2017-03-16 12:11] VITALS: BMI 24.4
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
[2017-03-16] MEDS ORDERED: guaiFENesin/D-METHORPHAN HB 10 ML UNIT-DOSE CUPS PO PRN (14:35)
[2017-03-16] MEDS ORDERED: MAG HYDROX/AL HYDROX/SIMETH 30 ML UNIT-DOSE CUP PO PRN (14:35)
[2017-03-16] MEDS ORDERED: NICOTINE POLACRILEX 4 MG GUM BUC PRN (14:35)
[2017-03-16] MEDS ORDERED: MENTHOL/PHENOL 1 EACH UD MM PRN (14:35)
[2017-03-16] MEDS ORDERED: MAGNESIUM HYDROX 2400MG/30ML ORAL SUSPENSION 30 ML CUP PO PRN (14:35)
[2017-03-16] MEDS ORDERED: ACETAMINOPHEN 325 MG TABLET (FP) PO PRN (14:35)
[2017-03-16] MEDS ORDERED: hydrOXYzine PAMOATE 50 MG CAPSULE (FP) PO PRN (14:35)
[2017-03-16] MEDS ORDERED: P-EPHED 60MG/TRIPROLIDI 2.5MG TABLET PO PRN (14:35)
[2017-03-16] MEDS ORDERED: MAGNESIUM CITRATE 300 ML BOTTLE PO PRN (14:35)
[2017-03-16] MEDS ORDERED: LOPERAMIDE HCL 2 MG CAPSULE PO PRN (14:35)
--- NOTE | 2017-03-16 14:35 | HP ---
[facility] Rehab Assess/Revision - Admission History Admitted to Rehab from: [facility] Date of Admission to Rehab: 03/16/17 - Vital signs Vital Signs: Vital Signs Period Temp Pulse Resp BP Sys/Clark Pulse Ox Last 24 Hr 98.1 F 120 18 148/88 - Findings Detox History & Physical reviewed: Yes Concur with findings: Yes Comments/Additional Findings: Patient relapsed to alcohol and heroin and cocaine use but does nto require to be detoxed at this time, will reassess on the floor in rehab, consider mat with suboxone for cravings Inpatient Rehab Admission - Initial Determination Are CD services needed?: Yes Free of communicable disease: Yes Not in need of hospitalization: Yes - Rehab Admission Criteria Comorbidities: Yes Patient is meeting Inpatient Rehab admission criteria:: Yes
[2017-03-16] MEDS: glipiZIDE-XL 2.5 MG TAB.ER.24 PO SCH (17:06)
[2017-03-16] MEDS: metFORMIN HCL 500 MG TABLET (FP) PO SCH (17:06)
[2017-03-16] MEDS: NICOTINE 21 MG/24 HOURS TOPICAL PATCH TD SCH (17:31)
[2017-03-16] MEDS: THIAMINE HCL 100 MG TABLET (FP) PO SCH (22:12)
[2017-03-16] MEDS: QUEtiapine FUMARATE 200 MG TABLET PO SCH (22:13)
[2017-03-16] MEDS: MIRTAZAPINE 15 MG TABLET (FP) PO SCH (22:13)
[2017-03-17 01:33] LABS: URINE APPEARANCE CLEAR; URINE BILIRUBIN NEGATIVE (NEGATIVE); URINE BLOOD NEGATIVE (NEGATIVE); URINE COLOR YELLOW; URINE GLUCOSE (UA) NEGATIVE (NEGATIVE); URINE KETONE NEGATIVE (NEGATIVE); URINE NITRITE NEGATIVE (NEGATIVE); URINE PROTEIN NEGATIVE (NEGATIVE); URINE UROBILINOGEN NEGATIVE mg/dL (0.2-1.0)
[2017-03-17] MEDS: metFORMIN HCL 500 MG TABLET (FP) PO SCH ×2 (06:36→16:22)
[2017-03-17] MEDS: glipiZIDE-XL 2.5 MG TAB.ER.24 PO SCH (06:36)
[2017-03-17] MEDS: NICOTINE 21 MG/24 HOURS TOPICAL PATCH TD SCH (09:44)
[2017-03-17] MEDS: PRENATAL VITAMINS W/ FOLIC ACID TABLET (FP) PO SCH (09:44)
[2017-03-17 10:57] LABS: URINE LEUK ESTERASE Negative (NEGATIVE)
[2017-03-17] MEDS: QUEtiapine FUMARATE 200 MG TABLET PO SCH (21:32)
[2017-03-17] MEDS: MIRTAZAPINE 15 MG TABLET (FP) PO SCH (21:32)
[2017-03-17] MEDS: THIAMINE HCL 100 MG TABLET (FP) PO SCH (21:32)
[2017-03-18] MEDS: glipiZIDE-XL 2.5 MG TAB.ER.24 PO SCH (06:30)
[2017-03-18] MEDS: metFORMIN HCL 500 MG TABLET (FP) PO SCH ×2 (06:30→16:43)
[2017-03-18] MEDS: NICOTINE 21 MG/24 HOURS TOPICAL PATCH TD SCH (10:12)
[2017-03-18] MEDS: PRENATAL VITAMINS W/ FOLIC ACID TABLET (FP) PO SCH (10:12)
[2017-03-18] MEDS: MIRTAZAPINE 15 MG TABLET (FP) PO SCH (21:30)
[2017-03-18] MEDS: QUEtiapine FUMARATE 200 MG TABLET PO SCH (21:30)
[2017-03-18] MEDS: THIAMINE HCL 100 MG TABLET (FP) PO SCH (21:30)
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
[2017-03-19] MEDS: glipiZIDE-XL 2.5 MG TAB.ER.24 PO SCH (07:09)
[2017-03-19] MEDS: metFORMIN HCL 500 MG TABLET (FP) PO SCH ×2 (07:09→17:07)
[2017-03-19] MEDS: NICOTINE 21 MG/24 HOURS TOPICAL PATCH TD SCH (09:58)
[2017-03-19] MEDS: PRENATAL VITAMINS W/ FOLIC ACID TABLET (FP) PO SCH (09:58)
--- NOTE | 2017-03-19 11:55 | PN ---
S Progress Note (SOAP) Subjective: c/o protracted withdrwal from oopioids would like to stat suboxone, lives [place] Objective: 03/19/17 11:53 Vital Signs - 8 hr 03/19/17 06:51 Temperature 98.2 F Pulse Rate 89 Respiratory 18 Rate Blood Pressure 135/76 Laboratory Tests 03/16/17 03/16/17 03/16/17 12:54 15:00 17:06 POC Glucometer 125 124 Urine Color Yellow Urine Appearance Clear Urine pH 5.0 Ur Specific [place] 1.017 Urine Protein Negative Urine Glucose (UA) Negative Urine Ketones Negative Urine Blood Negative Urine Nitrite Negative Urine Bilirubin Negative Urine Urobilinogen Negative Ur Leukocyte Esterase Negative 03/17/17 03/17/17 03/18/17 06:36 16:21 06:30 POC Glucometer 136 124 139 Urine Color Urine Appearance Urine pH Ur Specific [place] Urine Protein Urine Glucose (UA) Urine Ketones Urine Blood Urine Nitrite Urine Bilirubin Urine Urobilinogen Ur Leukocyte Esterase 03/18/17 03/19/17 16:42 05:57 POC Glucometer 134 126 Urine Color Urine Appearance Urine pH Ur Specific [place] Urine Protein Urine Glucose (UA) Urine Ketones Urine Blood Urine Nitrite Urine Bilirubin Urine Urobilinogen Ur Leukocyte Esterase labs reviewed Assessment: 03/19/17 11:53 start suboxone 4mg daily, risks and benefits discussed to follow up with counseloar and arrange for follow up on discharge with [facility] focus for mat maintenance and aftrercare, patient lives [place]. will adjust dose to comfort once appointment is made.
[2017-03-19] MEDS: BUPRENORPHINE/NALOXONE 2 MG/0.5 MG FILM PACKET SL SCH (13:13)
[2017-03-19] MEDS: cloNIDine HCL 0.1 MG TABLET PO SCH ×2 (13:13→21:34)
[2017-03-19] MEDS: THIAMINE HCL 100 MG TABLET (FP) PO SCH (21:33)
[2017-03-19] MEDS: MIRTAZAPINE 15 MG TABLET (FP) PO SCH (21:34)
[2017-03-19] MEDS: QUEtiapine FUMARATE 300 MG TABLET PO SCH (21:34)
[2017-03-20] MEDS: metFORMIN HCL 500 MG TABLET (FP) PO SCH ×2 (07:09→16:59)
[2017-03-20] MEDS: glipiZIDE-XL 2.5 MG TAB.ER.24 PO SCH (07:09)
[2017-03-20] MEDS: cloNIDine HCL 0.1 MG TABLET PO SCH ×2 (10:13→21:46)
[2017-03-20] MEDS: BUPRENORPHINE/NALOXONE 2 MG/0.5 MG FILM PACKET SL SCH (10:13)
[2017-03-20] MEDS: PRENATAL VITAMINS W/ FOLIC ACID TABLET (FP) PO SCH (10:13)
[2017-03-20] MEDS: NICOTINE 21 MG/24 HOURS TOPICAL PATCH TD SCH (10:14)
[2017-03-20] MEDS: THIAMINE HCL 100 MG TABLET (FP) PO SCH (21:46)
[2017-03-20] MEDS: QUEtiapine FUMARATE 300 MG TABLET PO SCH (21:46)
[2017-03-20] MEDS: MIRTAZAPINE 15 MG TABLET (FP) PO SCH (21:46)
[2017-03-21] MEDS: metFORMIN HCL 500 MG TABLET (FP) PO SCH ×2 (07:06→17:05)
[2017-03-21] MEDS: glipiZIDE-XL 2.5 MG TAB.ER.24 PO SCH (07:06)
[2017-03-21] MEDS: cloNIDine HCL 0.1 MG TABLET PO SCH ×2 (09:50→21:43)
[2017-03-21] MEDS: BUPRENORPHINE/NALOXONE 2 MG/0.5 MG FILM PACKET SL SCH (09:50)
[2017-03-21] MEDS: PRENATAL VITAMINS W/ FOLIC ACID TABLET (FP) PO SCH (09:50)
[2017-03-21] MEDS: NICOTINE 21 MG/24 HOURS TOPICAL PATCH TD SCH (09:50)
[2017-03-21] MEDS: QUEtiapine FUMARATE 300 MG TABLET PO SCH (21:43)
[2017-03-21] MEDS: THIAMINE HCL 100 MG TABLET (FP) PO SCH (21:43)
[2017-03-21] MEDS: MIRTAZAPINE 15 MG TABLET (FP) PO SCH (21:43)
[2017-03-22] MEDS: metFORMIN HCL 500 MG TABLET (FP) PO SCH ×2 (06:31→16:47)
[2017-03-22] MEDS: glipiZIDE-XL 2.5 MG TAB.ER.24 PO SCH (06:31)
[2017-03-22] MEDS: cloNIDine HCL 0.1 MG TABLET PO SCH ×2 (10:06→22:02)
[2017-03-22] MEDS: PRENATAL VITAMINS W/ FOLIC ACID TABLET (FP) PO SCH (10:06)
[2017-03-22] MEDS: NICOTINE 21 MG/24 HOURS TOPICAL PATCH TD SCH (10:06)
[2017-03-22] MEDS: BUPRENORPHINE/NALOXONE 2 MG/0.5 MG FILM PACKET SL SCH (10:06)
[2017-03-22] MEDS: GABAPENTIN 100 MG CAPSULE (FP) PO SCH ×2 (14:25→22:02)
[2017-03-22] MEDS: QUEtiapine FUMARATE 300 MG TABLET PO SCH (22:02)
[2017-03-22] MEDS: MIRTAZAPINE 15 MG TABLET (FP) PO SCH (22:02)
[2017-03-22] MEDS: THIAMINE HCL 100 MG TABLET (FP) PO SCH (22:02)
[2017-03-23] MEDS: GABAPENTIN 100 MG CAPSULE (FP) PO SCH ×3 (06:18→21:41)
[2017-03-23] MEDS: glipiZIDE-XL 2.5 MG TAB.ER.24 PO SCH (07:07)
[2017-03-23] MEDS: metFORMIN HCL 500 MG TABLET (FP) PO SCH ×2 (07:07→16:59)
[2017-03-23] MEDS: PRENATAL VITAMINS W/ FOLIC ACID TABLET (FP) PO SCH (10:18)
[2017-03-23] MEDS: BUPRENORPHINE/NALOXONE 2 MG/0.5 MG FILM PACKET SL SCH (10:18)
[2017-03-23] MEDS: cloNIDine HCL 0.1 MG TABLET PO SCH ×2 (10:18→21:40)
[2017-03-23] MEDS: NICOTINE 21 MG/24 HOURS TOPICAL PATCH TD SCH (10:19)
[2017-03-23] MEDS ORDERED: COLLOIDAL OATMEAL 1 BAR EACH TP PRN (13:43)
--- NOTE | 2017-03-23 13:45 | PN ---
[facility] Progress Note (SOAP) Subjective: reporting cravings and desire to use on 4mg dose daily, has a spot at [facility] want to increase suboxone dose Objective: 03/23/17 13:44 Vital Signs - 24 hr 03/22/17 03/23/17 03/23/17 20:14 00:30 03:30 Temperature Pulse Rate 91 H Respiratory 20 18 Rate Blood Pressure 134/70 03/23/17 03/23/17 07:03 10:00 Temperature 97.7 F Pulse Rate 80 92 H Respiratory 18 18 Rate Blood Pressure 130/69 132/72 Laboratory Tests 03/16/17 03/16/17 03/16/17 12:54 15:00 17:06 POC Glucometer 125 124 Urine Color Yellow Urine Appearance Clear Urine pH 5.0 Ur Specific [place] 1.017 Urine Protein Negative Urine Glucose (UA) Negative Urine Ketones Negative Urine Blood Negative Urine Nitrite Negative Urine Bilirubin Negative Urine Urobilinogen Negative Ur Leukocyte Esterase Negative 03/17/17 03/17/17 03/18/17 06:36 16:21 06:30 POC Glucometer 136 124 139 Urine Color Urine Appearance Urine pH Ur Specific [place] Urine Protein Urine Glucose (UA) Urine Ketones Urine Blood Urine Nitrite Urine Bilirubin Urine Urobilinogen Ur Leukocyte Esterase 03/18/17 03/19/17 03/19/17 16:42 05:57 17:07 POC Glucometer 134 126 124 Urine Color Urine Appearance Urine pH Ur Specific [place] Urine Protein Urine Glucose (UA) Urine Ketones Urine Blood Urine Nitrite Urine Bilirubin Urine Urobilinogen Ur Leukocyte Esterase 03/20/17 03/20/17 03/21/17 06:08 16:58 06:03 POC Glucometer 136 121 129 Urine Color Urine Appearance Urine pH Ur Specific [place] Urine Protein Urine Glucose (UA) Urine Ketones Urine Blood Urine Nitrite Urine Bilirubin Urine Urobilinogen Ur Leukocyte Esterase 03/21/17 03/22/17 03/22/17 17:05 06:30 16:46 POC Glucometer 136 134 148 Urine Color Urine Appearance Urine pH Ur Specific [place] Urine Protein Urine Glucose (UA) Urine Ketones Urine Blood Urine Nitrite Urine Bilirubin Urine Urobilinogen Ur Leukocyte Esterase 03/23/17 06:17 POC Glucometer 128 Urine Color Urine Appearance Urine pH Ur Specific [place] Urine Protein Urine Glucose (UA) Urine Ketones Urine Blood Urine Nitrite Urine Bilirubin Urine Urobilinogen Ur Leukocyte Esterase reveiwed labs, [facility], no sediation, a and o x3 Assessment: 03/23/17 13:44 opioid dependence with cravings on suboxone 8mg daily dose ordered can give additional 4mg x1 dose now, aveenoe soap ordred as requested by patient for dry skin
[2017-03-23] MEDS ORDERED: BUPRENORPHINE/NALOXONE 2 MG/0.5 MG FILM PACKET SL ONE (14:01)
[2017-03-23] MEDS: THIAMINE HCL 100 MG TABLET (FP) PO SCH (21:40)
[2017-03-23] MEDS: QUEtiapine FUMARATE 300 MG TABLET PO SCH (21:41)
[2017-03-23] MEDS: MIRTAZAPINE 15 MG TABLET (FP) PO SCH (21:41)
[2017-03-24] MEDS: GABAPENTIN 100 MG CAPSULE (FP) PO SCH ×3 (06:12→21:55)
[2017-03-24] MEDS: glipiZIDE-XL 2.5 MG TAB.ER.24 PO SCH (07:15)
[2017-03-24] MEDS: metFORMIN HCL 500 MG TABLET (FP) PO SCH ×2 (07:15→16:54)
[2017-03-24] MEDS: BUPRENORPHINE/NALOXONE 8 MG/2 MG FILM PACKET SL SCH (10:02)
[2017-03-24] MEDS: PRENATAL VITAMINS W/ FOLIC ACID TABLET (FP) PO SCH (10:02)
[2017-03-24] MEDS: NICOTINE 21 MG/24 HOURS TOPICAL PATCH TD SCH (10:02)
[2017-03-24] MEDS: cloNIDine HCL 0.1 MG TABLET PO SCH ×2 (10:02→21:55)
[2017-03-24] MEDS: MIRTAZAPINE 15 MG TABLET (FP) PO SCH (21:55)
[2017-03-24] MEDS: THIAMINE HCL 100 MG TABLET (FP) PO SCH (21:55)
[2017-03-24] MEDS: QUEtiapine FUMARATE 300 MG TABLET PO SCH (21:55)
[2017-03-25] MEDS: GABAPENTIN 100 MG CAPSULE (FP) PO SCH ×3 (06:31→21:43)
[2017-03-25] MEDS: metFORMIN HCL 500 MG TABLET (FP) PO SCH ×2 (07:11→16:56)
[2017-03-25] MEDS: glipiZIDE-XL 2.5 MG TAB.ER.24 PO SCH (07:11)
[2017-03-25] MEDS: BUPRENORPHINE/NALOXONE 8 MG/2 MG FILM PACKET SL SCH (10:00)
[2017-03-25] MEDS: cloNIDine HCL 0.1 MG TABLET PO SCH ×2 (10:00→21:43)
[2017-03-25] MEDS: PRENATAL VITAMINS W/ FOLIC ACID TABLET (FP) PO SCH (10:00)
[2017-03-25] MEDS: NICOTINE 21 MG/24 HOURS TOPICAL PATCH TD SCH (10:00)
[2017-03-25] MEDS: THIAMINE HCL 100 MG TABLET (FP) PO SCH (21:43)
[2017-03-25] MEDS: MIRTAZAPINE 15 MG TABLET (FP) PO SCH (21:43)
[2017-03-25] MEDS: QUEtiapine FUMARATE 300 MG TABLET PO SCH (21:43)
[2017-03-26] MEDS: GABAPENTIN 100 MG CAPSULE (FP) PO SCH ×3 (06:36→21:28)
[2017-03-26] MEDS: metFORMIN HCL 500 MG TABLET (FP) PO SCH ×2 (06:36→16:55)
[2017-03-26] MEDS: glipiZIDE-XL 2.5 MG TAB.ER.24 PO SCH (06:36)
[2017-03-26] MEDS: BUPRENORPHINE/NALOXONE 8 MG/2 MG FILM PACKET SL SCH (10:12)
[2017-03-26] MEDS: cloNIDine HCL 0.1 MG TABLET PO SCH ×2 (10:12→21:28)
[2017-03-26] MEDS: PRENATAL VITAMINS W/ FOLIC ACID TABLET (FP) PO SCH (10:12)
[2017-03-26] MEDS: NICOTINE 21 MG/24 HOURS TOPICAL PATCH TD SCH (10:12)
[2017-03-26] MEDS: THIAMINE HCL 100 MG TABLET (FP) PO SCH (21:28)
[2017-03-26] MEDS: QUEtiapine FUMARATE 300 MG TABLET PO SCH (21:28)
[2017-03-26] MEDS: MIRTAZAPINE 15 MG TABLET (FP) PO SCH (21:29)
[2017-03-27] MEDS: GABAPENTIN 100 MG CAPSULE (FP) PO SCH ×3 (06:15→21:20)
[2017-03-27] MEDS: glipiZIDE-XL 2.5 MG TAB.ER.24 PO SCH (07:20)
[2017-03-27] MEDS: metFORMIN HCL 500 MG TABLET (FP) PO SCH ×2 (07:20→16:46)
[2017-03-27] MEDS: PRENATAL VITAMINS W/ FOLIC ACID TABLET (FP) PO SCH (10:09)
[2017-03-27] MEDS: BUPRENORPHINE/NALOXONE 8 MG/2 MG FILM PACKET SL SCH (10:09)
[2017-03-27] MEDS: NICOTINE 21 MG/24 HOURS TOPICAL PATCH TD SCH (10:09)
[2017-03-27] MEDS: cloNIDine HCL 0.1 MG TABLET PO SCH ×2 (10:09→21:20)
[2017-03-27] MEDS ORDERED: SUMAtriptan SUCCINATE 50 MG TABLET PO PRN (16:55)
--- NOTE | 2017-03-27 16:55 | PN ---
[facility] Progress Note (SOAP) Subjective: still has cravings would like toincrease suboxone , [facility] Objective: 03/27/17 16:54 Vital Signs - 24 hr 03/26/17 03/27/17 03/27/17 20:50 00:30 06:49 Temperature 98.4 F Pulse Rate 86 97 H Respiratory 20 18 Rate Blood Pressure 124/86 100/66 03/27/17 09:30 Temperature Pulse Rate 97 H Respiratory Rate Blood Pressure 110/79 Laboratory Tests 03/16/17 03/16/17 03/16/17 12:54 15:00 17:06 POC Glucometer 125 124 Urine Color Yellow Urine Appearance Clear Urine pH 5.0 Ur Specific [place] 1.017 Urine Protein Negative Urine Glucose (UA) Negative Urine Ketones Negative Urine Blood Negative Urine Nitrite Negative Urine Bilirubin Negative Urine Urobilinogen Negative Ur Leukocyte Esterase Negative 03/17/17 03/17/17 03/18/17 06:36 16:21 06:30 POC Glucometer 136 124 139 Urine Color Urine Appearance Urine pH Ur Specific [place] Urine Protein Urine Glucose (UA) Urine Ketones Urine Blood Urine Nitrite Urine Bilirubin Urine Urobilinogen Ur Leukocyte Esterase 03/18/17 03/19/17 03/19/17 16:42 05:57 17:07 POC Glucometer 134 126 124 Urine Color Urine Appearance Urine pH Ur Specific [place] Urine Protein Urine Glucose (UA) Urine Ketones Urine Blood Urine Nitrite Urine Bilirubin Urine Urobilinogen Ur Leukocyte Esterase 03/20/17 03/20/17 03/21/17 06:08 16:58 06:03 POC Glucometer 136 121 129 Urine Color Urine Appearance Urine pH Ur Specific [place] Urine Protein Urine Glucose (UA) Urine Ketones Urine Blood Urine Nitrite Urine Bilirubin Urine Urobilinogen Ur Leukocyte Esterase 03/21/17 03/22/17 03/22/17 17:05 06:30 16:46 POC Glucometer 136 134 148 Urine Color Urine Appearance Urine pH Ur Specific [place] Urine Protein Urine Glucose (UA) Urine Ketones Urine Blood Urine Nitrite Urine Bilirubin Urine Urobilinogen Ur Leukocyte Esterase 03/23/17 03/23/17 03/24/17 06:17 16:59 06:10 POC Glucometer 128 128 138 Urine Color Urine Appearance Urine pH Ur Specific [place] Urine Protein Urine Glucose (UA) Urine Ketones Urine Blood Urine Nitrite Urine Bilirubin Urine Urobilinogen Ur Leukocyte Esterase 03/24/17 03/25/17 03/25/17 16:53 06:30 16:56 POC Glucometer 123 140 125 Urine Color Urine Appearance Urine pH Ur Specific [place] Urine Protein Urine Glucose (UA) Urine Ketones Urine Blood Urine Nitrite Urine Bilirubin Urine Urobilinogen Ur Leukocyte Esterase 03/26/17 03/26/17 03/27/17 06:35 16:55 06:15 POC Glucometer 124 118 142 Urine Color Urine Appearance Urine pH Ur Specific [place] Urine Protein Urine Glucose (UA) Urine Ketones Urine Blood Urine Nitrite Urine Bilirubin Urine Urobilinogen Ur Leukocyte Esterase labs reviewed Assessment: 03/27/17 16:55 increase to 12mg daily, extra 4mg today excedrin migrain prn for ray requested by patient
[2017-03-27] MEDS ORDERED: BUPRENORPHINE/NALOXONE 2 MG/0.5 MG FILM PACKET SL ONE (17:15)
[2017-03-27] MEDS ORDERED: BUPRENORPHINE/NALOXONE 2 MG/0.5 MG FILM PACKET ONE (20:04)
[2017-03-27] MEDS: THIAMINE HCL 100 MG TABLET (FP) PO SCH (21:19)
[2017-03-27] MEDS: QUEtiapine FUMARATE 300 MG TABLET PO SCH (21:19)
[2017-03-27] MEDS: MIRTAZAPINE 15 MG TABLET (FP) PO SCH (21:20)
[2017-03-28] MEDS: GABAPENTIN 100 MG CAPSULE (FP) PO SCH ×3 (06:30→21:49)
[2017-03-28] MEDS: metFORMIN HCL 500 MG TABLET (FP) PO SCH ×2 (07:30→16:52)
[2017-03-28] MEDS: glipiZIDE-XL 2.5 MG TAB.ER.24 PO SCH (07:30)
[2017-03-28] MEDS: BUPRENORPHINE HCL/NALOXONE 12 MG-3 MG SL FILM PACKET SL SCH (10:11)
[2017-03-28] MEDS: PRENATAL VITAMINS W/ FOLIC ACID TABLET (FP) PO SCH (10:11)
[2017-03-28] MEDS: NICOTINE 21 MG/24 HOURS TOPICAL PATCH TD SCH (10:11)
[2017-03-28] MEDS: cloNIDine HCL 0.1 MG TABLET PO SCH ×2 (10:11→21:50)
[2017-03-28] MEDS: IBUPROFEN 400 MG TABLET (FP) PO PRN (16:52)
[2017-03-28] MEDS: MIRTAZAPINE 15 MG TABLET (FP) PO SCH (21:49)
[2017-03-28] MEDS: THIAMINE HCL 100 MG TABLET (FP) PO SCH (21:49)
[2017-03-28] MEDS: QUEtiapine FUMARATE 300 MG TABLET PO SCH (21:50)
[2017-03-29] MEDS: GABAPENTIN 100 MG CAPSULE (FP) PO SCH ×3 (06:06→21:44)
[2017-03-29] MEDS: glipiZIDE-XL 2.5 MG TAB.ER.24 PO SCH (07:14)
[2017-03-29] MEDS: metFORMIN HCL 500 MG TABLET (FP) PO SCH ×2 (07:14→16:52)
[2017-03-29] MEDS: BUPRENORPHINE HCL/NALOXONE 12 MG-3 MG SL FILM PACKET SL SCH (10:51)
[2017-03-29] MEDS: NICOTINE 21 MG/24 HOURS TOPICAL PATCH TD SCH (10:51)
[2017-03-29] MEDS: cloNIDine HCL 0.1 MG TABLET PO SCH ×2 (10:51→21:44)
[2017-03-29] MEDS: PRENATAL VITAMINS W/ FOLIC ACID TABLET (FP) PO SCH (10:51)
[2017-03-29] MEDS: THIAMINE HCL 100 MG TABLET (FP) PO SCH (21:44)
[2017-03-29] MEDS: QUEtiapine FUMARATE 300 MG TABLET PO SCH (21:44)
[2017-03-29] MEDS: MIRTAZAPINE 15 MG TABLET (FP) PO SCH (21:44)
[2017-03-30] MEDS: GABAPENTIN 100 MG CAPSULE (FP) PO SCH ×3 (06:20→21:34)
[2017-03-30] MEDS: metFORMIN HCL 500 MG TABLET (FP) PO SCH ×2 (07:12→16:56)
[2017-03-30] MEDS: glipiZIDE-XL 2.5 MG TAB.ER.24 PO SCH (07:12)
[2017-03-30] MEDS: BUPRENORPHINE HCL/NALOXONE 12 MG-3 MG SL FILM PACKET SL SCH (09:23)
[2017-03-30] MEDS: PRENATAL VITAMINS W/ FOLIC ACID TABLET (FP) PO SCH (09:23)
[2017-03-30] MEDS: cloNIDine HCL 0.1 MG TABLET PO SCH ×2 (09:23→21:34)
[2017-03-30] MEDS: NICOTINE 21 MG/24 HOURS TOPICAL PATCH TD SCH (09:24)
[2017-03-30] MEDS: VITAMINS A AND D TOPICAL OINTMENT 60 GM TUBE TP SCH ×2 (18:00→23:39)
[2017-03-30] MEDS: QUEtiapine FUMARATE 300 MG TABLET PO SCH (21:34)
[2017-03-30] MEDS: THIAMINE HCL 100 MG TABLET (FP) PO SCH (21:34)
[2017-03-30] MEDS: MIRTAZAPINE 15 MG TABLET (FP) PO SCH (21:34)
[2017-03-31] MEDS: GABAPENTIN 100 MG CAPSULE (FP) PO SCH ×3 (06:44→21:59)
[2017-03-31] MEDS: metFORMIN HCL 500 MG TABLET (FP) PO SCH ×2 (06:44→16:28)
[2017-03-31] MEDS: glipiZIDE-XL 2.5 MG TAB.ER.24 PO SCH (06:44)
[2017-03-31] MEDS: VITAMINS A AND D TOPICAL OINTMENT 60 GM TUBE TP SCH ×3 (06:45→17:38)
[2017-03-31] MEDS: PRENATAL VITAMINS W/ FOLIC ACID TABLET (FP) PO SCH (09:59)
[2017-03-31] MEDS: NICOTINE 21 MG/24 HOURS TOPICAL PATCH TD SCH (09:59)
[2017-03-31] MEDS: BUPRENORPHINE HCL/NALOXONE 12 MG-3 MG SL FILM PACKET SL SCH (09:59)
[2017-03-31] MEDS: cloNIDine HCL 0.1 MG TABLET PO SCH ×2 (09:59→21:59)
[2017-03-31] MEDS: THIAMINE HCL 100 MG TABLET (FP) PO SCH (21:59)
[2017-03-31] MEDS: MIRTAZAPINE 15 MG TABLET (FP) PO SCH (21:59)
[2017-03-31] MEDS: QUEtiapine FUMARATE 300 MG TABLET PO SCH (21:59)
[2017-04-01] MEDS: VITAMINS A AND D TOPICAL OINTMENT 60 GM TUBE TP SCH ×5 (00:49→23:01)
[2017-04-01] MEDS: GABAPENTIN 100 MG CAPSULE (FP) PO SCH ×3 (06:36→21:25)
[2017-04-01] MEDS: glipiZIDE-XL 2.5 MG TAB.ER.24 PO SCH (06:36)
[2017-04-01] MEDS: metFORMIN HCL 500 MG TABLET (FP) PO SCH ×2 (06:36→17:05)
[2017-04-01] MEDS: NICOTINE 21 MG/24 HOURS TOPICAL PATCH TD SCH (10:01)
[2017-04-01] MEDS: cloNIDine HCL 0.1 MG TABLET PO SCH ×2 (10:02→21:25)
[2017-04-01] MEDS: PRENATAL VITAMINS W/ FOLIC ACID TABLET (FP) PO SCH (10:02)
[2017-04-01] MEDS: BUPRENORPHINE HCL/NALOXONE 12 MG-3 MG SL FILM PACKET SL SCH (10:02)
[2017-04-01] MEDS: THIAMINE HCL 100 MG TABLET (FP) PO SCH (21:24)
[2017-04-01] MEDS: MIRTAZAPINE 15 MG TABLET (FP) PO SCH (21:24)
[2017-04-01] MEDS: QUEtiapine FUMARATE 300 MG TABLET PO SCH (21:25)
[2017-04-02] MEDS: VITAMINS A AND D TOPICAL OINTMENT 60 GM TUBE TP SCH ×4 (06:20→23:39)
[2017-04-02] MEDS: GABAPENTIN 100 MG CAPSULE (FP) PO SCH ×3 (06:21→21:46)
[2017-04-02] MEDS: glipiZIDE-XL 2.5 MG TAB.ER.24 PO SCH (07:19)
[2017-04-02] MEDS: metFORMIN HCL 500 MG TABLET (FP) PO SCH ×2 (07:19→16:53)
[2017-04-02] MEDS: BUPRENORPHINE HCL/NALOXONE 12 MG-3 MG SL FILM PACKET SL SCH (10:21)
[2017-04-02] MEDS: PRENATAL VITAMINS W/ FOLIC ACID TABLET (FP) PO SCH (10:21)
[2017-04-02] MEDS: NICOTINE 21 MG/24 HOURS TOPICAL PATCH TD SCH (10:21)
[2017-04-02] MEDS: cloNIDine HCL 0.1 MG TABLET PO SCH ×2 (10:21→21:46)
[2017-04-02] MEDS: QUEtiapine FUMARATE 300 MG TABLET PO SCH (21:46)
[2017-04-02] MEDS: THIAMINE HCL 100 MG TABLET (FP) PO SCH (21:46)
[2017-04-02] MEDS: MIRTAZAPINE 15 MG TABLET (FP) PO SCH (21:46)
[2017-04-03] MEDS: IBUPROFEN 400 MG TABLET (FP) PO PRN (02:47)
[2017-04-03] MEDS: GABAPENTIN 100 MG CAPSULE (FP) PO SCH (05:57)
[2017-04-03] MEDS: VITAMINS A AND D TOPICAL OINTMENT 60 GM TUBE TP SCH (06:00)
[2017-04-03 06:55] VITALS: BP 108/63; PULSE 86; TEMP 97.7
[2017-04-03] MEDS: metFORMIN HCL 500 MG TABLET (FP) PO SCH (07:09)
[2017-04-03] MEDS: glipiZIDE-XL 2.5 MG TAB.ER.24 PO SCH (07:09)
[2017-04-03] MEDS: NICOTINE 21 MG/24 HOURS TOPICAL PATCH TD SCH (09:39)
[2017-04-03] MEDS: BUPRENORPHINE HCL/NALOXONE 12 MG-3 MG SL FILM PACKET SL SCH (09:39)
[2017-04-03] MEDS: PRENATAL VITAMINS W/ FOLIC ACID TABLET (FP) PO SCH (09:39)
[2017-04-03] MEDS: cloNIDine HCL 0.1 MG TABLET PO SCH (09:39)
[2017-04-03] MEDS ORDERED: PT OWN MED DRAWER 7, Y5N ONE (09:43)
--- NOTE | 2017-04-03 10:17 | PN ---
Psychiatric Progress Note Vital Signs: Vital Signs Period Temp Pulse Resp BP Sys/Clark Pulse Ox Last 24 Hr 97.7 F 86-103 18-20 108-126/63-64 Date of Session: 04/03/17 Chief Complaint:: Discharge Note HPI: Patient addressing Alcohol and Opoid Dependence comorbid with Nicotine Dependence, Posttraumatic Stress Disorder, Substance-induced Mood Disorder and Substance-induced Sleep Disorder ROS: Chronic low back pain, type 2 DM were medically managed Current Medications: Active Medications Generic Name Dose Route Start Last Admin Trade Name Freq PRN Reason Stop Dose Admin Acetaminophen 650 mg 03/16/17 14:35 Tylenol - PO Q4H PRN FEVER OR PAIN Al Hydroxide/Mg Hydroxide 30 ml 03/16/17 14:35 Mylanta Oral Suspension - PO Q6H PRN DYSPEPSIA Buprenorphine/Naloxone 1 each 03/28/17 10:00 04/03/17 09:39 Suboxone 12 Mg-3 Mg Sl Film SL 1 each DAILY SAMINA Administration Clonidine 0.1 mg 03/19/17 12:00 04/03/17 09:39 Catapres - PO 0.1 mg BID SAMINA Administration Colloidal Oatmeal 1 applic 03/23/17 13:43 03/24/17 06:15 Aveeno Soap - TP 1 applic DAILY PRN Administration HYGEINE Eucalyptus/Menthol/Phenol/Sorbitol 1 each 03/16/17 14:35 Cepastat Lozenge - MM Q4H PRN SORE THROAT Gabapentin 100 mg 03/22/17 14:00 04/03/17 05:57 Neurontin - PO 100 mg TID SAMINA Administration Glipizide 2.5 mg 03/16/17 14:30 04/03/17 07:09 Glucotrol Xl - PO 2.5 mg DAILY@0700 SAMINA Administration Guaifenesin 10 ml 03/16/17 14:35 Robitussin Dm - PO Q6H PRN COUGH Hydroxyzine Pamoate 50 mg 03/16/17 14:35 Vistaril - PO Q4H PRN AGITATION Ibuprofen 400 mg 03/16/17 14:35 04/03/17 02:47 Motrin - PO 400 mg Q6H PRN Administration PAIN Loperamide HCl 4 mg 03/16/17 14:35 Imodium - PO Q6H PRN DIARRHEA Magnesium Citrate 300 ml 03/16/17 14:35 Citroma - PO Q48H PRN CONSTIPATION Magnesium Hydroxide 30 ml 03/16/17 14:35 Milk Of Magnesia - PO DAILY PRN CONSTIPATION Metformin HCl 500 mg 03/16/17 16:30 04/03/17 07:09 Glucophage - PO 500 mg BIDAC SAMINA Administration Mirtazapine 15 mg 03/16/17 22:00 04/02/17 21:46 Remeron - PO 15 mg HS SAMINA Administration Nicotine 21 mg 03/16/17 15:15 04/03/17 09:39 Nicoderm Patch - TD Not Given DAILY SAMINA Nicotine Polacrilex 4 mg 03/16/17 14:35 Nicorette Gum - BUC Q2H PRN NICOTINE REPLACEMENT RX Multivit/Folic Acid/Iron 1 tab 03/17/17 10:00 04/03/17 09:39 Vitamins (Sjr) - PO 1 tab DAILY SAMINA Administration Pseudoephedrine/Triprolidine 1 combo 03/16/17 14:35 Actifed - PO TID PRN NASAL CONGESTION Quetiapine Fumarate 300 mg 03/19/17 22:00 04/02/17 21:46 Seroquel - PO 300 mg HS SAMINA Administration Sumatriptan Succinate 50 mg 03/27/17 16:55 03/30/17 20:05 Imitrex - PO 50 mg PRN PRN Administration HEADACHE Thiamine HCl 100 mg 03/16/17 22:00 04/02/17 21:46 Vitamin B1 - PO 100 mg HS SAMINA Administration Vitamin A/Vitamin D 1 applic 03/30/17 18:00 04/03/17 06:00 Vitamin A & D Top Oint - TP Not Given Q6HPO SAMINA Current Side Effect: No Lab tests ordered: Yes Lab tests reviewed: Yes Provider note:: Patient has completed this program today. He has met his treatment goals and will continue to address his issues in [facility] residential treatment at [facility] at [address] [place] [address]. Told marketing underwriter that from his participation in this program, he has learned the importance of reaching out and having a sponsor. He responded well to Seroquel 300 mg po HS and Remeron 15 mg po HS. Scripts for 30 days supply of these medications are electronically transmitted to [facility] at [address], [place] [address]. He is stable for discharge today Total face to face time:: 35 Mental Status Exam - Mental Status Exam Alert and Oriented to: Time, Place, Person Cognitive Function: Fair Patient Appearance: Well Groomed Mood: Hopeful, Euthymic Affect: Appropriate Patient Behavior: Cooperative Speech Pattern: Clear Voice Loudness: Moderately Soft/Quiet Thought Process: Intact, Goal Oriented Thought Disorder: Not Present Hallucinations: Denies Suicidal Ideation: Denies Homicidal Ideation: Denies Insight/Judgement: Fair Sleep: Fair Appetite: Good Muscle strength/Tone: Normal Gait/Station: Normal Psychiatric Treatment Plan - Problem List (1) Alcohol dependence Current Visit: Yes Qualifiers: Substance use status: uncomplicated Qualified Code(s): F10.20 - Alcohol dependence, uncomplicated (2) Opioid dependence Current Visit: Yes (3) Nicotine dependence Current Visit: No Qualifiers: Nicotine product type: cigarettes Substance use status: uncomplicated Qualified Code(s): F17.210 - Nicotine dependence, cigarettes, uncomplicated (4) PTSD (post-traumatic stress disorder) Current Visit: No Comment: As per records.Non-adherence to OPD care and medications. (5) Substance induced mood disorder Current Visit: Yes (6) Substance-induced sleep disorder Current Visit: Yes (7) Chronic LBP Current Visit: No Qualifiers: Back pain laterality: unspecified (8) Type 2 diabetes mellitus Current Visit: No Qualifiers: Diabetes mellitus complication status: without complication Diabetes mellitus mcfp insulin use: without mcfp use Qualified Code(s): E11.9 - Type 2 diabetes mellitus without complications Initial treatment plan: Patient is discharged today and referred to [facility] for nursing educator residential treatment
== END 2017-04-03 10:15 | disposition home or self-care (01) | DRG 772 ==
LOC: YASAS 12:05 → Y3W 13:52
PROVIDERS: ADMIT Psychiatry & Neurology Psychiatry; ATTEND Psychiatry & Neurology Psychiatry
PROC: HZ42ZZZ Group Counseling for Substance Abuse Treatment, Cognitive-Behavioral (ICD-10-PCS; principal; 2017-03-16)
DX: F11.20 Opioid dependence, uncomplicated (principal); F10.20 Alcohol dependence, uncomplicated; F17.210 Nicotine dependence, cigarettes, uncomplicated; F43.10 Post-traumatic stress disorder, unspecified; F19.24 Other psychoactive substance dependence with psychoactive substance-induced mood disorder; F19.282 Other psychoactive substance dependence with psychoactive substance-induced sleep disorder; E11.9 Type 2 diabetes mellitus without complications; M54.5 Low back pain; G89.29 Other chronic pain; Z79.84 Long term (current) use of oral hypoglycemic drugs
CPT/HCPCS: 81003

== ENCOUNTER 2017-05-25 08:43 | Inpatient (IN) | payer OTHER ==
[2017-05-25 09:56] VITALS: BMI 24.4
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
[2017-05-25] MEDS ORDERED: P-EPHED 60MG/TRIPROLIDI 2.5MG TABLET PO PRN (11:59)
[2017-05-25] MEDS ORDERED: chlordiazePOXIDE HCL 25 MG CAPSULE PO PRN (11:59)
[2017-05-25] MEDS ORDERED: MENTHOL/PHENOL 1 EACH UD MM PRN (11:59)
[2017-05-25] MEDS ORDERED: guaiFENesin/D-METHORPHAN HB 10 ML UNIT-DOSE CUPS PO PRN (11:59)
[2017-05-25] MEDS ORDERED: IBUPROFEN 400 MG TABLET (FP) PO PRN (11:59)
[2017-05-25] MEDS ORDERED: MAGNESIUM CITRATE 300 ML BOTTLE PO PRN (11:59)
[2017-05-25] MEDS ORDERED: ACETAMINOPHEN 325 MG TABLET (FP) PO PRN (11:59)
[2017-05-25] MEDS ORDERED: NICOTINE POLACRILEX 4 MG GUM BUC PRN (11:59)
[2017-05-25] MEDS ORDERED: MAGNESIUM HYDROX 2400MG/30ML ORAL SUSPENSION 30 ML CUP PO PRN (11:59)
[2017-05-25] MEDS ORDERED: MAG HYDROX/AL HYDROX/SIMETH 30 ML UNIT-DOSE CUP PO PRN (11:59)
[2017-05-25] MEDS ORDERED: hydrOXYzine PAMOATE 50 MG CAPSULE (FP) PO PRN (11:59)
[2017-05-25] MEDS ORDERED: LOPERAMIDE HCL 2 MG CAPSULE PO PRN (11:59)
[2017-05-25] MEDS ORDERED: chlordiazePOXIDE HCL 25 MG CAPSULE PO ONE (12:45)
[2017-05-25] MEDS ORDERED: METHADONE HCL 10 MG TABLET (FOR DETOX USE ONLY) PO ONE ×2 (12:50→23:00)
[2017-05-25] MEDS: NAPROXEN 500 MG TABLET (FP) PO SCH ×2 (13:48→22:11)
[2017-05-25] MEDS: NICOTINE 21 MG/24 HOURS TOPICAL PATCH TD SCH (13:48)
[2017-05-25] MEDS: PANTOPRAZOLE 40 MG TABLET (FP) PO SCH (13:49)
[2017-05-25] MEDS: glipiZIDE-XL 2.5 MG TAB.ER.24 PO SCH (14:31)
[2017-05-25] MEDS: metFORMIN HCL 500 MG TABLET (FP) PO SCH ×2 (14:31→17:11)
[2017-05-25] MEDS: CYCLOBENZAPRINE HCL 10 MG TABLET (FP) PO SCH ×2 (14:31→22:11)
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
[2017-05-25] MEDS: chlordiazePOXIDE HCL 25 MG CAPSULE PO SCH ×2 (17:11→22:10)
[2017-05-25] MEDS: MIRTAZAPINE 15 MG TABLET (FP) PO SCH (22:11)
[2017-05-25] MEDS: QUEtiapine FUMARATE 200 MG TABLET PO SCH (22:11)
[2017-05-25] MEDS: THIAMINE HCL 100 MG TABLET (FP) PO SCH (22:11)
[2017-05-25 22:27] LABS: URINE APPEARANCE CLEAR; URINE BILIRUBIN NEGATIVE (NEGATIVE); URINE BLOOD NEGATIVE (NEGATIVE); URINE COLOR DKYELLOW; URINE GLUCOSE (UA) NEGATIVE (NEGATIVE); URINE KETONE TRACE (NEGATIVE); URINE LEUK ESTERASE NEGATIVE (NEGATIVE); URINE NITRITE NEGATIVE (NEGATIVE); URINE PROTEIN NEGATIVE (NEGATIVE)
[2017-05-26] MEDS: chlordiazePOXIDE HCL 25 MG CAPSULE PO SCH ×4 (06:27→22:31)
[2017-05-26] MEDS: CYCLOBENZAPRINE HCL 10 MG TABLET (FP) PO SCH ×3 (06:27→22:32)
[2017-05-26] MEDS: metFORMIN HCL 500 MG TABLET (FP) PO SCH ×2 (06:27→17:15)
[2017-05-26] MEDS: glipiZIDE-XL 2.5 MG TAB.ER.24 PO SCH (06:27)
[2017-05-26] MEDS ORDERED: METHADONE HCL 10 MG TABLET (FOR DETOX USE ONLY) PO SCH (10:00)
[2017-05-26 10:33] LABS: HEMATOCRIT 39.4 % (35.4-49); HEMOGLOBIN 12.5 GM/dL (11.7-16.9); MCH 27.2 pg (25.7-33.7); MCHC 31.6 g/dl (32.0-35.9); MEAN CELL VOLUME 85.9 fl (80-96); MEAN PLT VOLUME 8.1 fl (7.5-11.1); PLATELET COUNT 354 K/MM3 (134-434); RBC 4.59 M/mm3 (4.00-5.60); RDW 16.2 % (11.9-15.9); WHITE BLOOD COUNT 12.6 K/mm3 (4.0-10.0)
[2017-05-26 10:37] LABS: CHLORIDE 104 mmol/L (98-107); POTASSIUM 4.2 mmol/L (3.5-5.1); SODIUM 143 mmol/L (136-145)
[2017-05-26 10:47] LABS: ALBUMIN 3.9 g/dl (3.4-5.0); ALK PHOS 146 U/L (45-117); ANION GAP 9 (8-16); BILIRUBIN,TOTAL 0.2 mg/dL (0.2-1.0); BLOOD UREA NITROGEN 23 mg/dL (7-18); CALCIUM 9.2 mg/dL (8.5-10.1); CO2 30 mmol/L (21-32); CREATININE 1.3 mg/dL (0.7-1.3); GLUCOSE,RANDOM 131 mg/dL (74-106); SGOT/AST 56 U/L (15-37); SGPT/ALT 119 U/L (12-78); TOT PROT 7.2 g/dl (6.4-8.2)
[2017-05-26] MEDS: PANTOPRAZOLE 40 MG TABLET (FP) PO SCH (10:59)
[2017-05-26] MEDS: NAPROXEN 500 MG TABLET (FP) PO SCH ×2 (10:59→22:32)
[2017-05-26] MEDS: PRENATAL VITAMINS W/ FOLIC ACID TABLET (FP) PO SCH (10:59)
[2017-05-26] MEDS: NICOTINE 21 MG/24 HOURS TOPICAL PATCH TD SCH (11:00)
--- NOTE | 2017-05-26 15:14 | PN ---
S CIWA - CIWA Score Nausea/Vomitin Muscle Tremors: 4-Moderate,w/Arms Extend Anxiety: 4-Mod. Anxious/Guarded Agitation: 4-Moderately Restless Paroxysmal Sweats: 3 Orientation: 0-Oriented Tacttile Disturbances: 1-Very Mild Itch/Numbness Auditory Disturbances: 0-None Visual Disturbances: 0-None Headache: 0-None Present CIWA-Ar Total Score: 19 [facility] COWS - Scale Resting Pulse: 2= [place] 101-120 Sweatin= Chills/Flushing Restless Observation: 3= Extraneous Movement Pupil Size: 0= Normal to Room Light Bone or Joint Aches: 2= Severe Diffuse Aches Runny Nose/ Eye Tearin= Runny Nose/Eyes GI Upset > 30mins: 2= Nausea/Diarrhea Tremor Observation of Outstretched Hands: 2= Slight Tremor Visible Yawning Observation: 0= None Anxiety or Irritability: 2=Irritable/Anxious Goose Flesh Skin: 0=Smooth Skin COWS Score: 16 S Progress Note (SOAP) Subjective: Interrupted sleep, restless, feels uncomfortable, sweating, chills, back pain Objective: 05/26/17 15:11 Last Vital Signs Temp Pulse Resp BP Pulse Ox 97.6 F 103 H 20 155/83 05/26/17 13:25 05/26/17 13:25 05/26/17 13:25 05/26/17 13:25 Laboratory Tests 05/25/17 05/25/17 05/25/17 10:16 11:45 20:20 WBC RBC Hgb Hct MCV MCH MCHC RDW Plt Count MPV Sodium Potassium Chloride Carbon Dioxide Anion Gap BUN Creatinine Creat Clearance w eGFR POC Glucometer 148 Random Glucose Calcium Total Bilirubin AST ALT Alkaline Phosphatase Total Protein Albumin Urine Color Dkyellow Urine Appearance Clear Urine pH 5.0 Ur Specific [place] 1.029 Urine Protein Negative Urine Glucose (UA) Negative Urine Ketones Trace H Urine Blood Negative Urine Nitrite Negative Urine Bilirubin Negative Urine Urobilinogen 2.0 Ur Leukocyte Esterase Negative RPR Titer HIV 1&2 Antibody Screen Negative HIV P24 Antigen Negative 05/26/17 05/26/17 05/26/17 06:10 06:10 06:10 WBC 12.6 H RBC 4.59 Hgb 12.5 Hct 39.4 MCV 85.9 MCH 27.2 MCHC 31.6 L RDW 16.2 H Plt Count 354 D MPV 8.1 Sodium 143 Potassium 4.2 Chloride 104 Carbon Dioxide 30 Anion Gap 9 BUN 23 H D Creatinine 1.3 Creat Clearance w eGFR 58.67 POC Glucometer Random Glucose 131 H D Calcium 9.2 Total Bilirubin 0.2 D AST 56 H D ALT 119 H D Alkaline Phosphatase 146 H D Total Protein 7.2 Albumin 3.9 Urine Color Urine Appearance Urine pH Ur Specific [place] Urine Protein Urine Glucose (UA) Urine Ketones Urine Blood Urine Nitrite Urine Bilirubin Urine Urobilinogen Ur Leukocyte Esterase RPR Titer Nonreactive HIV 1&2 Antibody Screen HIV P24 Antigen 05/26/17 06:28 WBC RBC Hgb Hct MCV MCH MCHC RDW Plt Count MPV Sodium Potassium Chloride Carbon Dioxide Anion Gap BUN Creatinine Creat Clearance w eGFR POC Glucometer 151 Random Glucose Calcium Total Bilirubin AST ALT Alkaline Phosphatase Total Protein Albumin Urine Color Urine Appearance Urine pH Ur Specific [place] Urine Protein Urine Glucose (UA) Urine Ketones Urine Blood Urine Nitrite Urine Bilirubin Urine Urobilinogen Ur Leukocyte Esterase RPR Titer HIV 1&2 Antibody Screen HIV P24 Antigen Labs noted: wbc 12.6, bun 23, serum cr 1.3, serum glucose 131 Assessment: 05/26/17 15:13 Withdrawal symptoms Noted with leukocytosis, prerenal azotemia and hyperglycemia Plan: Continue detox Encouraged to drink more water for hydration Leukocytosis: asymptomatic for infection, repeat CBC Prerenal azotemia: encouraged to drink more water, repeat BMP Hyperglycemia secondary to DMT2: continue present regimen, continue to monitor
--- NOTE | 2017-05-26 16:00 | EKG ---
Test Reason : Blood Pressure : / mmHG Vent. Rate : 096 BPM Atrial Rate : 096 BPM P-R Int : 162 ms QRS Dur : 086 ms QT Int : 348 ms P-R-T Axes : 066 062 046 degrees QTc Int : 439 ms NORMAL SINUS RHYTHM NORMAL ECG WHEN COMPARED WITH ECG OF 09-MAR-2017 13:34, NO SIGNIFICANT CHANGE WAS FOUND Confirmed by CHERELLE CERVANTES MD ([id number]) on 05/26/2017 3:59:52 PM Referred By: Confirmed By:CHERELLE CERVANTES MD
[2017-05-26] MEDS: THIAMINE HCL 100 MG TABLET (FP) PO SCH (22:31)
[2017-05-26] MEDS: MIRTAZAPINE 15 MG TABLET (FP) PO SCH (22:32)
[2017-05-26] MEDS: QUEtiapine FUMARATE 200 MG TABLET PO SCH (22:32)
[2017-05-27] MEDS: glipiZIDE-XL 2.5 MG TAB.ER.24 PO SCH (06:00)
[2017-05-27] MEDS: metFORMIN HCL 500 MG TABLET (FP) PO SCH ×2 (06:00→17:18)
[2017-05-27] MEDS: chlordiazePOXIDE HCL 25 MG CAPSULE PO SCH ×2 (06:00→10:31)
[2017-05-27] MEDS: CYCLOBENZAPRINE HCL 10 MG TABLET (FP) PO SCH ×3 (06:00→22:35)
[2017-05-27] MEDS ORDERED: METHADONE HCL 5 MG TABLET (FOR DETOX USE ONLY) PO SCH (10:00)
[2017-05-27 10:18] LABS: EOS % 5.1 % (0-4.5); HEMATOCRIT 38.8 % (35.4-49); HEMOGLOBIN 12.3 GM/dL (11.7-16.9); LYMPH % 34.2 % (8-40); MCH 27.5 pg (25.7-33.7); MCHC 31.7 g/dl (32.0-35.9); MEAN CELL VOLUME 86.9 fl (80-96); MONO % 10.7 % (3.8-10.2); PLATELET COUNT 288 K/MM3 (134-434); RBC 4.47 M/mm3 (4.00-5.60); RDW 15.9 % (11.9-15.9); WHITE BLOOD COUNT 6.7 K/mm3 (4.0-10.0)
[2017-05-27 10:25] LABS: ANION GAP 5 (8-16); BLOOD UREA NITROGEN 13 mg/dL (7-18); CHLORIDE 103 mmol/L (98-107); CO2 31 mmol/L (21-32); GLUCOSE,RANDOM 151 mg/dL (74-106); POTASSIUM 4.4 mmol/L (3.5-5.1); SODIUM 139 mmol/L (136-145)
[2017-05-27 10:27] LABS: CALCIUM 8.6 mg/dL (8.5-10.1); CREATININE 0.8 mg/dL (0.7-1.3)
[2017-05-27] MEDS: PANTOPRAZOLE 40 MG TABLET (FP) PO SCH (10:30)
[2017-05-27] MEDS: NAPROXEN 500 MG TABLET (FP) PO SCH ×2 (10:30→22:35)
[2017-05-27] MEDS: cloNIDine HCL 0.1 MG TABLET PO PRN ×2 (10:33→22:35)
[2017-05-27] MEDS: PRENATAL VITAMINS W/ FOLIC ACID TABLET (FP) PO SCH (10:33)
[2017-05-27] MEDS: NICOTINE 21 MG/24 HOURS TOPICAL PATCH TD SCH (10:34)
[2017-05-27] MEDS: chlordiazePOXIDE 5 MG CAPSULE PO SCH ×2 (17:20→22:35)
--- NOTE | 2017-05-27 21:57 | PN ---
[facility] CIWA - CIWA Score Nausea/Vomitin Muscle Tremors: 3 Anxiety: 3 Agitation: 3 Paroxysmal Sweats: 3 Orientation: 0-Oriented Tacttile Disturbances: 0-None Auditory Disturbances: 0-None Visual Disturbances: 0-None Headache: 0-None Present CIWA-Ar Total Score: 14 S COWS - Scale Resting Pulse: 1= NE 81-100 Sweatin= Chills/Flushing Restless Observation: 1= Difficult to Sit Still Pupil Size: 0= Normal to Room Light Bone or Joint Aches: 1= Mild Discomfort Runny Nose/ Eye Tearin= Nasal Congestion GI Upset > 30mins: 1= Stomach Cramp Tremor Observation of Outstretched Hands: 2= Slight Tremor Visible Yawning Observation: 0= None Anxiety or Irritability: 2=Irritable/Anxious Goose Flesh Skin: 0=Smooth Skin COWS Score: 10 [facility] Progress Note (SOAP) Subjective: shakes sweats sleepless Objective: 05/27/17 21:58 Laboratory Last Values WBC 6.7 K/mm3 (4.0-10.0) D 05/27/17 08:00 RBC 4.47 M/mm3 (4.00-5.60) 05/27/17 08:00 Hgb 12.3 GM/dL (11.7-16.9) 05/27/17 08:00 Hct 38.8 % (35.4-49) 05/27/17 08:00 MCV 86.9 fl (80-96) 05/27/17 08:00 MCH 27.5 pg (25.7-33.7) 05/27/17 08:00 MCHC 31.7 g/dl (32.0-35.9) L 05/27/17 08:00 RDW 15.9 % (11.9-15.9) 05/27/17 08:00 Plt Count 288 K/MM3 (134-434) 05/27/17 08:00 MPV 8.0 fl (7.5-11.1) 05/27/17 08:00 Neutrophils % 49.0 % (42.8-82.8) 05/27/17 08:00 Lymphocytes % 34.2 % (8-40) D 05/27/17 08:00 Monocytes % 10.7 % (3.8-10.2) H 05/27/17 08:00 Eosinophils % 5.1 % (0-4.5) H 05/27/17 08:00 Basophils % 1.0 % (0-2.0) 05/27/17 08:00 Sodium 139 mmol/L (136-145) 05/27/17 08:00 Potassium 4.4 mmol/L (3.5-5.1) 05/27/17 08:00 Chloride 103 mmol/L (98-107) 05/27/17 08:00 Carbon Dioxide 31 mmol/L (21-32) 05/27/17 08:00 Anion Gap 5 (8-16) L 05/27/17 08:00 BUN 13 mg/dL (7-18) D 05/27/17 08:00 Creatinine 0.8 mg/dL (0.7-1.3) D 05/27/17 08:00 Creat Clearance w eGFR 58.67 (>60) 05/26/17 06:10 POC Glucometer 134 UNITS (80-120) 05/27/17 05:59 Random Glucose 151 mg/dL (74-106) H 05/27/17 08:00 Calcium 8.6 mg/dL (8.5-10.1) 05/27/17 08:00 Total Bilirubin 0.2 mg/dL (0.2-1.0) D 05/26/17 06:10 AST 56 U/L (15-37) H D 05/26/17 06:10 ALT 119 U/L (12-78) H D 05/26/17 06:10 Alkaline Phosphatase 146 U/L (45-117) H D 05/26/17 06:10 Total Protein 7.2 g/dl (6.4-8.2) 05/26/17 06:10 Albumin 3.9 g/dl (3.4-5.0) 05/26/17 06:10 Urine Color Dkyellow 05/25/17 20:20 Urine Appearance Clear 05/25/17 20:20 Urine pH 5.0 (5.0-8.0) 05/25/17 20:20 Ur Specific [place] 1.029 (1.001-1.035) 05/25/17 20:20 Urine Protein Negative (NEGATIVE) 05/25/17 20:20 Urine Glucose (UA) Negative (NEGATIVE) 05/25/17 20:20 Urine Ketones Trace (NEGATIVE) H 05/25/17 20:20 Urine Blood Negative (NEGATIVE) 05/25/17 20:20 Urine Nitrite Negative (NEGATIVE) 05/25/17 20:20 Urine Bilirubin Negative (NEGATIVE) 05/25/17 20:20 Urine Urobilinogen 2.0 mg/dL (0.2-1.0) 05/25/17 20:20 Ur Leukocyte Esterase Negative (NEGATIVE) 05/25/17 20:20 RPR Titer Nonreactive (NONREACTIVE) 05/26/17 06:10 HIV 1&2 Antibody Screen Negative 05/25/17 11:45 HIV P24 Antigen Negative 05/25/17 11:45 labs noted Assessment: 05/27/17 21:59 withdrawal sx Plan: continue detox
[2017-05-27] MEDS: THIAMINE HCL 100 MG TABLET (FP) PO SCH (22:35)
[2017-05-27] MEDS: MIRTAZAPINE 15 MG TABLET (FP) PO SCH (22:36)
[2017-05-27] MEDS: QUEtiapine FUMARATE 200 MG TABLET PO SCH (22:36)
[2017-05-28] MEDS: CYCLOBENZAPRINE HCL 10 MG TABLET (FP) PO SCH ×3 (05:31→22:46)
[2017-05-28] MEDS: chlordiazePOXIDE 5 MG CAPSULE PO SCH ×2 (05:31→10:32)
[2017-05-28] MEDS: metFORMIN HCL 500 MG TABLET (FP) PO SCH ×2 (06:32→17:44)
[2017-05-28] MEDS: glipiZIDE-XL 2.5 MG TAB.ER.24 PO SCH (08:08)
[2017-05-28] MEDS ORDERED: METHADONE HCL 10 MG TABLET (FOR DETOX USE ONLY) PO SCH (10:00)
[2017-05-28] MEDS: PANTOPRAZOLE 40 MG TABLET (FP) PO SCH (10:32)
[2017-05-28] MEDS: NAPROXEN 500 MG TABLET (FP) PO SCH ×2 (10:32→22:46)
[2017-05-28] MEDS: NICOTINE 21 MG/24 HOURS TOPICAL PATCH TD SCH (10:32)
[2017-05-28] MEDS: PRENATAL VITAMINS W/ FOLIC ACID TABLET (FP) PO SCH (10:32)
--- NOTE | 2017-05-28 12:34 | PN ---
[facility] Progress Note (SOAP) Subjective: DECREASED ANXIETY,SWEATS. Objective: 05/28/17 12:34 Vital Signs Temperature 97.9 F 05/28/17 09:46 Pulse Rate 108 H 05/28/17 09:46 Respiratory Rate 20 05/28/17 09:46 Blood Pressure 127/83 05/28/17 09:46 O2 Sat by Pulse Oximetry (%) Laboratory Last Values WBC 6.7 K/mm3 (4.0-10.0) D 05/27/17 08:00 RBC 4.47 M/mm3 (4.00-5.60) 05/27/17 08:00 Hgb 12.3 GM/dL (11.7-16.9) 05/27/17 08:00 Hct 38.8 % (35.4-49) 05/27/17 08:00 MCV 86.9 fl (80-96) 05/27/17 08:00 MCH 27.5 pg (25.7-33.7) 05/27/17 08:00 MCHC 31.7 g/dl (32.0-35.9) L 05/27/17 08:00 RDW 15.9 % (11.9-15.9) 05/27/17 08:00 Plt Count 288 K/MM3 (134-434) 05/27/17 08:00 MPV 8.0 fl (7.5-11.1) 05/27/17 08:00 Neutrophils % 49.0 % (42.8-82.8) 05/27/17 08:00 Lymphocytes % 34.2 % (8-40) D 05/27/17 08:00 Monocytes % 10.7 % (3.8-10.2) H 05/27/17 08:00 Eosinophils % 5.1 % (0-4.5) H 05/27/17 08:00 Basophils % 1.0 % (0-2.0) 05/27/17 08:00 Sodium 139 mmol/L (136-145) 05/27/17 08:00 Potassium 4.4 mmol/L (3.5-5.1) 05/27/17 08:00 Chloride 103 mmol/L (98-107) 05/27/17 08:00 Carbon Dioxide 31 mmol/L (21-32) 05/27/17 08:00 Anion Gap 5 (8-16) L 05/27/17 08:00 BUN 13 mg/dL (7-18) D 05/27/17 08:00 Creatinine 0.8 mg/dL (0.7-1.3) D 05/27/17 08:00 Creat Clearance w eGFR 58.67 (>60) 05/26/17 06:10 POC Glucometer 132 UNITS (80-120) 05/28/17 05:31 Random Glucose 151 mg/dL (74-106) H 05/27/17 08:00 Calcium 8.6 mg/dL (8.5-10.1) 05/27/17 08:00 Total Bilirubin 0.2 mg/dL (0.2-1.0) D 05/26/17 06:10 AST 56 U/L (15-37) H D 05/26/17 06:10 ALT 119 U/L (12-78) H D 05/26/17 06:10 Alkaline Phosphatase 146 U/L (45-117) H D 05/26/17 06:10 Total Protein 7.2 g/dl (6.4-8.2) 05/26/17 06:10 Albumin 3.9 g/dl (3.4-5.0) 05/26/17 06:10 Urine Color Dkyellow 05/25/17 20:20 Urine Appearance Clear 05/25/17 20:20 Urine pH 5.0 (5.0-8.0) 05/25/17 20:20 Ur Specific [place] 1.029 (1.001-1.035) 05/25/17 20:20 Urine Protein Negative (NEGATIVE) 05/25/17 20:20 Urine Glucose (UA) Negative (NEGATIVE) 05/25/17 20:20 Urine Ketones Trace (NEGATIVE) H 05/25/17 20:20 Urine Blood Negative (NEGATIVE) 05/25/17 20:20 Urine Nitrite Negative (NEGATIVE) 05/25/17 20:20 Urine Bilirubin Negative (NEGATIVE) 05/25/17 20:20 Urine Urobilinogen 2.0 mg/dL (0.2-1.0) 05/25/17 20:20 Ur Leukocyte Esterase Negative (NEGATIVE) 05/25/17 20:20 RPR Titer Nonreactive (NONREACTIVE) 05/26/17 06:10 HIV 1&2 Antibody Screen Negative 05/25/17 11:45 HIV P24 Antigen Negative 05/25/17 11:45 Assessment: 05/28/17 12:34 WITHDRAWAL SX Plan: CONTINUE DETOX
[2017-05-28] MEDS: chlordiazePOXIDE HCL 10 MG CAPSULE PO SCH ×2 (17:44→22:46)
[2017-05-28 22:34] VITALS: BP 131/84; PULSE 114; TEMP 98.6
[2017-05-28] MEDS: QUEtiapine FUMARATE 200 MG TABLET PO SCH (22:46)
[2017-05-28] MEDS: MIRTAZAPINE 15 MG TABLET (FP) PO SCH (22:46)
[2017-05-28] MEDS: THIAMINE HCL 100 MG TABLET (FP) PO SCH (22:46)
[2017-05-29] MEDS: chlordiazePOXIDE HCL 10 MG CAPSULE PO SCH (05:31)
[2017-05-29] MEDS: CYCLOBENZAPRINE HCL 10 MG TABLET (FP) PO SCH (05:32)
[2017-05-29] MEDS ORDERED: METHADONE HCL 5 MG TABLET (FOR DETOX USE ONLY) PO SCH (06:00)
[2017-05-29] MEDS: metFORMIN HCL 500 MG TABLET (FP) PO SCH (07:07)
[2017-05-29] MEDS: glipiZIDE-XL 2.5 MG TAB.ER.24 PO SCH (07:07)
--- NOTE | 2017-05-29 08:15 | DS ---
[facility] Detox Discharge Summary Admission Date: 05/25/17 Discharge Date: 05/29/17 - History Present History: Alcohol Dependence, Opioid Dependence Additional Comments: DETOX COMPLETED. PT WILL FOLLOW UP WITH HIS PMD FOR MEDICAL MANAGEMENT NEEDED. RX SENT TO [facility] FOR PT TO LENS [facility]ENER ON DISCHARGE. Pertinent Past History: SEE DX BELOW - Physical Exam Results Vital Signs: Vital Signs Temperature 98.6 F 05/28/17 22:34 Pulse Rate 114 H 05/28/17 22:34 Respiratory Rate 18 05/29/17 03:30 Blood Pressure 131/84 05/28/17 22:34 O2 Sat by Pulse Oximetry (%) Pertinent Admission Physical Exam Findings: WITHDRAWAL SX Laboratory Last Values WBC 6.7 K/mm3 (4.0-10.0) D 05/27/17 08:00 RBC 4.47 M/mm3 (4.00-5.60) 05/27/17 08:00 Hgb 12.3 GM/dL (11.7-16.9) 05/27/17 08:00 Hct 38.8 % (35.4-49) 05/27/17 08:00 MCV 86.9 fl (80-96) 05/27/17 08:00 MCH 27.5 pg (25.7-33.7) 05/27/17 08:00 MCHC 31.7 g/dl (32.0-35.9) L 05/27/17 08:00 RDW 15.9 % (11.9-15.9) 05/27/17 08:00 Plt Count 288 K/MM3 (134-434) 05/27/17 08:00 MPV 8.0 fl (7.5-11.1) 05/27/17 08:00 Neutrophils % 49.0 % (42.8-82.8) 05/27/17 08:00 Lymphocytes % 34.2 % (8-40) D 05/27/17 08:00 Monocytes % 10.7 % (3.8-10.2) H 05/27/17 08:00 Eosinophils % 5.1 % (0-4.5) H 05/27/17 08:00 Basophils % 1.0 % (0-2.0) 05/27/17 08:00 Sodium 139 mmol/L (136-145) 05/27/17 08:00 Potassium 4.4 mmol/L (3.5-5.1) 05/27/17 08:00 Chloride 103 mmol/L (98-107) 05/27/17 08:00 Carbon Dioxide 31 mmol/L (21-32) 05/27/17 08:00 Anion Gap 5 (8-16) L 05/27/17 08:00 BUN 13 mg/dL (7-18) D 05/27/17 08:00 Creatinine 0.8 mg/dL (0.7-1.3) D 05/27/17 08:00 Creat Clearance w eGFR 58.67 (>60) 05/26/17 06:10 POC Glucometer 129 UNITS (80-120) 05/29/17 05:30 Random Glucose 151 mg/dL (74-106) H 05/27/17 08:00 Calcium 8.6 mg/dL (8.5-10.1) 05/27/17 08:00 Total Bilirubin 0.2 mg/dL (0.2-1.0) D 05/26/17 06:10 AST 56 U/L (15-37) H D 05/26/17 06:10 ALT 119 U/L (12-78) H D 05/26/17 06:10 Alkaline Phosphatase 146 U/L (45-117) H D 05/26/17 06:10 Total Protein 7.2 g/dl (6.4-8.2) 05/26/17 06:10 Albumin 3.9 g/dl (3.4-5.0) 05/26/17 06:10 Urine Color Dkyellow 05/25/17 20:20 Urine Appearance Clear 05/25/17 20:20 Urine pH 5.0 (5.0-8.0) 05/25/17 20:20 Ur Specific [place] 1.029 (1.001-1.035) 05/25/17 20:20 Urine Protein Negative (NEGATIVE) 05/25/17 20:20 Urine Glucose (UA) Negative (NEGATIVE) 05/25/17 20:20 Urine Ketones Trace (NEGATIVE) H 05/25/17 20:20 Urine Blood Negative (NEGATIVE) 05/25/17 20:20 Urine Nitrite Negative (NEGATIVE) 05/25/17 20:20 Urine Bilirubin Negative (NEGATIVE) 05/25/17 20:20 Urine Urobilinogen 2.0 mg/dL (0.2-1.0) 05/25/17 20:20 Ur Leukocyte Esterase Negative (NEGATIVE) 05/25/17 20:20 RPR Titer Nonreactive (NONREACTIVE) 05/26/17 06:10 HIV 1&2 Antibody Screen Negative 05/25/17 11:45 HIV P24 Antigen Negative 05/25/17 11:45 - Treatment Hospital Course: Detox Protocol Followed, Detoxed Safely, Responded well, Discharged Condition Good - Medication Discharge Medications: Ambulatory Orders Mirtazapine [Remeron -] 15 mg PO HS #30 tablet 07/20/15 Quetiapine Fumarate [Seroquel -] 300 mg PO HS #30 tablet 04/03/17 Glipizide [Glipizide ER] 2.5 mg PO DAILY #30 tab.er.24 05/28/17 Mirtazapine [Remeron -] 15 mg PO HS #30 tablet 05/28/17 Quetiapine Fumarate [Seroquel -] 200 mg PO HS #30 tab 05/28/17 metFORMIN HCL [Glucophage -] 500 mg PO BID #60 tablet 05/28/17 - Diagnosis (1) Alcohol dependence with withdrawal, uncomplicated Status: Acute (2) Opioid dependence with withdrawal Status: Acute (3) Nicotine dependence Status: Chronic Qualifiers: Nicotine product type: cigarettes Substance use status: in withdrawal Qualified Code(s): F17.213 - Nicotine dependence, cigarettes, with withdrawal (4) Type 2 diabetes mellitus Status: Chronic Qualifiers: Diabetes mellitus complication status: without complication Diabetes mellitus longterm insulin use: without longterm use Qualified Code(s): E11.9 - Type 2 diabetes mellitus without complications - AMA Did Patient Leave Against Medical Advice: No
[2017-05-29] MEDS ORDERED: METHADONE HCL 10 MG TABLET (FOR DETOX USE ONLY) PO SCH (10:00)
[2017-05-30] MEDS ORDERED: METHADONE HCL 5 MG TABLET (FOR DETOX USE ONLY) PO SCH (06:00)
== END 2017-05-29 06:30 | disposition home or self-care (01) | DRG 773 ==
LOC: YASAS 08:43 → Y3N 12:40
PROVIDERS: ADMIT Internal Medicine; ATTEND Internal Medicine
PROC: HZ2ZZZZ Detoxification Services for Substance Abuse Treatment (ICD-10-PCS; principal; 2017-05-25)
DX: F11.23 Opioid dependence with withdrawal (principal); F10.230 Alcohol dependence with withdrawal, uncomplicated; F14.20 Cocaine dependence, uncomplicated; F17.213 Nicotine dependence, cigarettes, with withdrawal; F39 Unspecified mood [affective] disorder; F32.9 Major depressive disorder, single episode, unspecified; F19.24 Other psychoactive substance dependence with psychoactive substance-induced mood disorder; F41.9 Anxiety disorder, unspecified; F43.10 Post-traumatic stress disorder, unspecified; E11.65 Type 2 diabetes mellitus with hyperglycemia; D72.829 Elevated white blood cell count, unspecified; M54.5 Low back pain; G89.29 Other chronic pain; Z91.013 Allergy to seafood
CPT/HCPCS: 36415; 80048; 80053; 81003; 82962; 85025; 85027; 86593; 87389; 93005; 93010; J0735

== ENCOUNTER 2017-06-08 09:06 | Inpatient (IN) | payer OTHER ==
[2017-06-08 09:20] VITALS: BMI 24.4
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
[2017-06-08] MEDS ORDERED: guaiFENesin/D-METHORPHAN HB 10 ML UNIT-DOSE CUPS PO PRN (13:49)
[2017-06-08] MEDS ORDERED: ACETAMINOPHEN 325 MG TABLET (FP) PO PRN (13:49)
[2017-06-08] MEDS ORDERED: IBUPROFEN 400 MG TABLET (FP) PO PRN (13:49)
[2017-06-08] MEDS ORDERED: MAGNESIUM HYDROX 2400MG/30ML ORAL SUSPENSION 30 ML CUP PO PRN (13:49)
[2017-06-08] MEDS ORDERED: P-EPHED 60MG/TRIPROLIDI 2.5MG TABLET PO PRN (13:49)
[2017-06-08] MEDS ORDERED: MENTHOL/PHENOL 1 EACH UD MM PRN (13:49)
[2017-06-08] MEDS ORDERED: MAG HYDROX/AL HYDROX/SIMETH 30 ML UNIT-DOSE CUP PO PRN (13:49)
[2017-06-08] MEDS ORDERED: LOPERAMIDE HCL 2 MG CAPSULE PO PRN (13:49)
[2017-06-08] MEDS ORDERED: NICOTINE POLACRILEX 4 MG GUM BUC PRN (13:49)
[2017-06-08] MEDS ORDERED: MAGNESIUM CITRATE 300 ML BOTTLE PO PRN (13:49)
[2017-06-08] MEDS ORDERED: chlordiazePOXIDE HCL 25 MG CAPSULE PO ONE (14:25)
[2017-06-08] MEDS ORDERED: METHADONE HCL 10 MG TABLET (FOR DETOX USE ONLY) PO ONE ×2 (14:25→23:00)
[2017-06-08] MEDS: NICOTINE 21 MG/24 HOURS TOPICAL PATCH TD SCH (15:52)
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
[2017-06-08 16:51] LABS: URINE APPEARANCE CLEAR; URINE BILIRUBIN NEGATIVE (NEGATIVE); URINE BLOOD NEGATIVE (NEGATIVE); URINE COLOR LTYELLOW; URINE GLUCOSE (UA) NEGATIVE (NEGATIVE); URINE KETONE NEGATIVE (NEGATIVE); URINE LEUK ESTERASE NEGATIVE (NEGATIVE); URINE NITRITE NEGATIVE (NEGATIVE); URINE PROTEIN NEGATIVE (NEGATIVE); URINE UROBILINOGEN NEGATIVE mg/dL (0.2-1.0)
[2017-06-08] MEDS ORDERED: INSULIN (NOVOLOG) ASPART 100 UNITS/ML 10ML VIAL ONE (17:03)
[2017-06-08] MEDS: chlordiazePOXIDE HCL 25 MG CAPSULE PO SCH ×2 (17:31→22:19)
[2017-06-08] MEDS: metFORMIN HCL 500 MG TABLET (FP) PO SCH (17:31)
[2017-06-08] MEDS: INSULIN SLIDING SCALE (NOVOLOG) 1 VIAL SQ SCH (17:33)
[2017-06-08] MEDS: THIAMINE HCL 100 MG TABLET (FP) PO SCH (22:19)
[2017-06-08] MEDS: cloNIDine HCL 0.1 MG TABLET PO SCH (22:20)
[2017-06-08] MEDS: QUEtiapine FUMARATE 200 MG TABLET PO SCH (22:20)
[2017-06-09] MEDS: chlordiazePOXIDE HCL 25 MG CAPSULE PO SCH ×4 (05:21→22:21)
[2017-06-09] MEDS: metFORMIN HCL 500 MG TABLET (FP) PO SCH ×2 (07:27→17:44)
[2017-06-09] MEDS: INSULIN SLIDING SCALE (NOVOLOG) 1 VIAL SQ SCH ×2 (07:28→18:28)
[2017-06-09] MEDS ORDERED: METHADONE HCL 10 MG TABLET (FOR DETOX USE ONLY) PO SCH (10:00)
[2017-06-09 10:01] LABS: HEMATOCRIT 38.5 % (35.4-49); HEMOGLOBIN 12.1 GM/dL (11.7-16.9); MCH 27.4 pg (25.7-33.7); MCHC 31.5 g/dl (32.0-35.9); MEAN CELL VOLUME 86.9 fl (80-96); MEAN PLT VOLUME 7.9 fl (7.5-11.1); PLATELET COUNT 396 K/MM3 (134-434); RBC 4.43 M/mm3 (4.00-5.60); RDW 16.1 % (11.9-15.9); WHITE BLOOD COUNT 11.1 K/mm3 (4.0-10.0)
[2017-06-09 10:12] LABS: CHLORIDE 103 mmol/L (98-107); POTASSIUM 4.5 mmol/L (3.5-5.1); SODIUM 137 mmol/L (136-145)
[2017-06-09] MEDS: PRENATAL VITAMINS W/ FOLIC ACID TABLET (FP) PO SCH (10:20)
[2017-06-09] MEDS: cloNIDine HCL 0.1 MG TABLET PO SCH ×2 (10:20→22:21)
[2017-06-09] MEDS: NICOTINE 21 MG/24 HOURS TOPICAL PATCH TD SCH (10:20)
[2017-06-09] MEDS: glipiZIDE-XL 2.5 MG TAB.ER.24 PO SCH (10:20)
[2017-06-09 10:41] LABS: ALBUMIN 3.6 g/dl (3.4-5.0); ALK PHOS 115 U/L (45-117); ANION GAP 7 (8-16); BILIRUBIN,TOTAL 0.6 mg/dL (0.2-1.0); BLOOD UREA NITROGEN 16 mg/dL (7-18); CALCIUM 8.3 mg/dL (8.5-10.1); CO2 27 mmol/L (21-32); GLUCOSE,RANDOM 177 mg/dL (74-106); SGOT/AST 17 U/L (15-37); SGPT/ALT 30 U/L (12-78); TOT PROT 6.7 g/dl (6.4-8.2)
[2017-06-09] MEDS ORDERED: ACETAMINOPHEN 500 MG TABLET (FP) PO ONE (13:32)
--- NOTE | 2017-06-09 13:44 | PN ---
[facility] CIWA - CIWA Score Nausea/Vomitin Muscle Tremors: 3 Anxiety: 3 Agitation: 3 Paroxysmal Sweats: 3 Orientation: 0-Oriented Tacttile Disturbances: 0-None Auditory Disturbances: 0-None Visual Disturbances: 0-None Headache: 0-None Present CIWA-Ar Total Score: 15 [facility] COWS - Scale Resting Pulse: 2= [place] 101-120 Sweatin=Flushed/Facial Moisture Restless Observation: 3= Extraneous Movement Pupil Size: 0= Normal to Room Light Bone or Joint Aches: 2= Severe Diffuse Aches Runny Nose/ Eye Tearin= Runny Nose/Eyes GI Upset > 30mins: 1= Stomach Cramp Tremor Observation of Outstretched Hands: 2= Slight Tremor Visible Yawning Observation: 0= None Anxiety or Irritability: 2=Irritable/Anxious Goose Flesh Skin: 0=Smooth Skin COWS Score: 16 [facility] Progress Note (SOAP) Subjective: restless joint pain chills/fever Objective: 06/09/17 13:44 a & O x 3 able to ambulate steadily Vital Signs Temperature 100.2 06/09/17 10:00 Pulse Rate 109 H 06/09/17 10:00 Respiratory Rate 20 06/09/17 10:00 Blood Pressure 149/94 06/09/17 10:00 O2 Sat by Pulse Oximetry (%) Laboratory Last Values WBC 11.1 K/mm3 (4.0-10.0) H D 06/09/17 06:20 RBC 4.43 M/mm3 (4.00-5.60) 06/09/17 06:20 Hgb 12.1 GM/dL (11.7-16.9) 06/09/17 06:20 Hct 38.5 % (35.4-49) 06/09/17 06:20 MCV 86.9 fl (80-96) 06/09/17 06:20 MCH 27.4 pg (25.7-33.7) 06/09/17 06:20 MCHC 31.5 g/dl (32.0-35.9) L 06/09/17 06:20 RDW 16.1 % (11.9-15.9) H 06/09/17 06:20 Plt Count 396 K/MM3 (134-434) D 02/24/18 06:20 MPV 7.9 fl (7.5-11.1) 06/09/17 06:20 Sodium 137 mmol/L (136-145) 06/09/17 06:20 Potassium 4.5 mmol/L (3.5-5.1) 06/09/17 06:20 Chloride 103 mmol/L (98-107) 06/09/17 06:20 Carbon Dioxide 27 mmol/L (21-32) 06/09/17 06:20 Anion Gap 7 (8-16) L 06/09/17 06:20 BUN 16 mg/dL (7-18) D 06/09/17 06:20 Creatinine 1.0 mg/dL (0.7-1.3) D 06/09/17 06:20 Creat Clearance w eGFR > 60 (>60) 06/09/17 06:20 POC Glucometer 125 UNITS (80-120) 06/09/17 05:21 Random Glucose 177 mg/dL (74-106) H 06/09/17 06:20 Calcium 8.3 mg/dL (8.5-10.1) L 06/09/17 06:20 Total Bilirubin 0.6 mg/dL (0.2-1.0) D 06/09/17 06:20 AST 17 U/L (15-37) D 06/09/17 06:20 ALT 30 U/L (12-78) D 06/09/17 06:20 Alkaline Phosphatase 115 U/L (45-117) D 06/09/17 06:20 Total Protein 6.7 g/dl (6.4-8.2) 06/09/17 06:20 Albumin 3.6 g/dl (3.4-5.0) 06/09/17 06:20 Urine Color Ltyellow 06/08/17 14:45 Urine Appearance Clear 06/08/17 14:45 Urine pH 5.0 (5.0-8.0) 06/08/17 14:45 Ur Specific [place] 1.017 (1.001-1.035) 06/08/17 14:45 Urine Protein Negative (NEGATIVE) 06/08/17 14:45 Urine Glucose (UA) Negative (NEGATIVE) 06/08/17 14:45 Urine Ketones Negative (NEGATIVE) 06/08/17 14:45 Urine Blood Negative (NEGATIVE) 06/08/17 14:45 Urine Nitrite Negative (NEGATIVE) 06/08/17 14:45 Urine Bilirubin Negative (NEGATIVE) 06/08/17 14:45 Urine Urobilinogen Negative mg/dL (0.2-1.0) 06/08/17 14:45 Ur Leukocyte Esterase Negative (NEGATIVE) 06/08/17 14:45 labs noted Assessment: 06/09/17 13:46 withdrawal sx Plan: continue detox increase hydration tylenol 975 for temp monitor temp/ reevaluate condition
[2017-06-09] MEDS ORDERED: ACETAMINOPHEN 325 MG TABLET (FP) PO ONE (14:00)
[2017-06-09] MEDS: chlordiazePOXIDE HCL 25 MG CAPSULE PO PRN (14:34)
[2017-06-09] MEDS: hydrOXYzine PAMOATE 50 MG CAPSULE (FP) PO PRN (19:55)
[2017-06-09] MEDS: QUEtiapine FUMARATE 200 MG TABLET PO SCH (22:21)
[2017-06-09] MEDS: THIAMINE HCL 100 MG TABLET (FP) PO SCH (22:21)
[2017-06-10] MEDS: hydrOXYzine PAMOATE 50 MG CAPSULE (FP) PO PRN ×2 (04:17→16:56)
[2017-06-10] MEDS: chlordiazePOXIDE HCL 25 MG CAPSULE PO SCH ×2 (05:18→10:03)
[2017-06-10] MEDS: metFORMIN HCL 500 MG TABLET (FP) PO SCH ×2 (07:19→16:56)
[2017-06-10] MEDS: INSULIN SLIDING SCALE (NOVOLOG) 1 VIAL SQ SCH ×2 (07:19→16:45)
[2017-06-10] MEDS ORDERED: METHADONE HCL 5 MG TABLET (FOR DETOX USE ONLY) PO SCH (10:00)
[2017-06-10] MEDS: glipiZIDE-XL 2.5 MG TAB.ER.24 PO SCH (10:04)
[2017-06-10] MEDS: PRENATAL VITAMINS W/ FOLIC ACID TABLET (FP) PO SCH (10:04)
[2017-06-10] MEDS: NICOTINE 21 MG/24 HOURS TOPICAL PATCH TD SCH (10:04)
[2017-06-10] MEDS: cloNIDine HCL 0.1 MG TABLET PO SCH ×2 (10:04→22:03)
[2017-06-10] MEDS: chlordiazePOXIDE HCL 25 MG CAPSULE PO PRN (12:37)
--- NOTE | 2017-06-10 14:13 | PN ---
[facility] CIWA - CIWA Score Nausea/Vomitin-Mild Nausea/No Vomiting Muscle Tremors: 4-Moderate,w/Arms Extend Anxiety: 3 Agitation: 3 Paroxysmal Sweats: 1-Minimal Palms Moist Orientation: 0-Oriented Tacttile Disturbances: 0-None Auditory Disturbances: 0-None Visual Disturbances: 0-None Headache: 0-None Present CIWA-Ar Total Score: 12 BHS COWS - Scale Resting Pulse: 2= ND 101-120 Sweatin= Chills/Flushing Restless Observation: 3= Extraneous Movement Pupil Size: 0= Normal to Room Light Bone or Joint Aches: 1= Mild Discomfort Runny Nose/ Eye Tearin= Nasal Congestion GI Upset > 30mins: 2= Nausea/Diarrhea Tremor Observation of Outstretched Hands: 2= Slight Tremor Visible Yawning Observation: 1= 1-2x During Session Anxiety or Irritability: 2=Irritable/Anxious Goose Flesh Skin: 0=Smooth Skin COWS Score: 15 S Progress Note (SOAP) Subjective: tremor sweat stuffy nose joint aches anxiety restlessness Objective: 06/10/17 14:12 Vital Signs Temperature 97.9 F 06/10/17 10:00 Pulse Rate 102 H 06/10/17 10:00 Respiratory Rate 20 06/10/17 10:00 Blood Pressure 152/78 06/10/17 10:00 O2 Sat by Pulse Oximetry (%) Laboratory Last Values WBC 11.1 K/mm3 (4.0-10.0) H D 06/09/17 06:20 RBC 4.43 M/mm3 (4.00-5.60) 06/09/17 06:20 Hgb 12.1 GM/dL (11.7-16.9) 06/09/17 06:20 Hct 38.5 % (35.4-49) 06/09/17 06:20 MCV 86.9 fl (80-96) 06/09/17 06:20 MCH 27.4 pg (25.7-33.7) 06/09/17 06:20 MCHC 31.5 g/dl (32.0-35.9) L 06/09/17 06:20 RDW 16.1 % (11.9-15.9) H 06/09/17 06:20 Plt Count 396 K/MM3 (134-434) D 06/09/17 06:20 MPV 7.9 fl (7.5-11.1) 06/09/17 06:20 Sodium 137 mmol/L (136-145) 06/09/17 06:20 Potassium 4.5 mmol/L (3.5-5.1) 06/09/17 06:20 Chloride 103 mmol/L (98-107) 06/09/17 06:20 Carbon Dioxide 27 mmol/L (21-32) 06/09/17 06:20 Anion Gap 7 (8-16) L 06/09/17 06:20 BUN 16 mg/dL (7-18) D 06/09/17 06:20 Creatinine 1.0 mg/dL (0.7-1.3) D 06/09/17 06:20 Creat Clearance w eGFR > 60 (>60) 06/09/17 06:20 POC Glucometer 206 UNITS (80-120) 06/10/17 05:17 Random Glucose 177 mg/dL (74-106) H 06/09/17 06:20 Calcium 8.3 mg/dL (8.5-10.1) L 06/09/17 06:20 Total Bilirubin 0.6 mg/dL (0.2-1.0) D 06/09/17 06:20 AST 17 U/L (15-37) D 06/09/17 06:20 ALT 30 U/L (12-78) D 06/09/17 06:20 Alkaline Phosphatase 115 U/L (45-117) D 06/09/17 06:20 Total Protein 6.7 g/dl (6.4-8.2) 06/09/17 06:20 Albumin 3.6 g/dl (3.4-5.0) 06/09/17 06:20 Urine Color Ltyellow 06/08/17 14:45 Urine Appearance Clear 06/08/17 14:45 Urine pH 5.0 (5.0-8.0) 06/08/17 14:45 Ur Specific [place] 1.017 (1.001-1.035) 06/08/17 14:45 Urine Protein Negative (NEGATIVE) 06/08/17 14:45 Urine Glucose (UA) Negative (NEGATIVE) 06/08/17 14:45 Urine Ketones Negative (NEGATIVE) 06/08/17 14:45 Urine Blood Negative (NEGATIVE) 06/08/17 14:45 Urine Nitrite Negative (NEGATIVE) 06/08/17 14:45 Urine Bilirubin Negative (NEGATIVE) 06/08/17 14:45 Urine Urobilinogen Negative mg/dL (0.2-1.0) 06/08/17 14:45 Ur Leukocyte Esterase Negative (NEGATIVE) 06/08/17 14:45 RPR Titer Nonreactive (NONREACTIVE) 06/09/17 06:20 lab noted Assessment: 06/10/17 14:13 withdrawal sx Plan: continue detox
[2017-06-10] MEDS: chlordiazePOXIDE 5 MG CAPSULE PO SCH ×2 (16:56→22:03)
[2017-06-10] MEDS: THIAMINE HCL 100 MG TABLET (FP) PO SCH (22:03)
[2017-06-10] MEDS: QUEtiapine FUMARATE 200 MG TABLET PO SCH (22:03)
[2017-06-11] MEDS: chlordiazePOXIDE 5 MG CAPSULE PO SCH ×2 (05:58→10:11)
[2017-06-11] MEDS: INSULIN SLIDING SCALE (NOVOLOG) 1 VIAL SQ SCH ×2 (07:33→17:29)
[2017-06-11] MEDS: metFORMIN HCL 500 MG TABLET (FP) PO SCH ×2 (07:33→17:28)
--- NOTE | 2017-06-11 08:46 | PN ---
S Progress Note (SOAP) Subjective: patient is alert oriented x 3, reports mild withdrawal, would like to return to work and follow up as per counselor arranged, Objective: 06/11/17 08:44 Vital Signs Temperature 97.6 F 06/11/17 06:15 Pulse Rate 82 06/11/17 06:15 Respiratory Rate 18 06/11/17 06:15 Blood Pressure 113/80 06/11/17 06:15 O2 Sat by Pulse Oximetry (%) Laboratory Last Values WBC 11.1 K/mm3 (4.0-10.0) H D 06/09/17 06:20 RBC 4.43 M/mm3 (4.00-5.60) 06/09/17 06:20 Hgb 12.1 GM/dL (11.7-16.9) 06/09/17 06:20 Hct 38.5 % (35.4-49) 06/09/17 06:20 MCV 86.9 fl (80-96) 06/09/17 06:20 MCH 27.4 pg (25.7-33.7) 06/09/17 06:20 MCHC 31.5 g/dl (32.0-35.9) L 06/09/17 06:20 RDW 16.1 % (11.9-15.9) H 06/09/17 06:20 Plt Count 396 K/MM3 (134-434) D 06/09/17 06:20 MPV 7.9 fl (7.5-11.1) 06/09/17 06:20 Sodium 137 mmol/L (136-145) 06/09/17 06:20 Potassium 4.5 mmol/L (3.5-5.1) 06/09/17 06:20 Chloride 103 mmol/L (98-107) 06/09/17 06:20 Carbon Dioxide 27 mmol/L (21-32) 06/09/17 06:20 Anion Gap 7 (8-16) L 06/09/17 06:20 BUN 16 mg/dL (7-18) D 06/09/17 06:20 Creatinine 1.0 mg/dL (0.7-1.3) D 06/09/17 06:20 Creat Clearance w eGFR > 60 (>60) 06/09/17 06:20 POC Glucometer 122 UNITS (80-120) 06/11/17 05:58 Random Glucose 177 mg/dL (74-106) H 06/09/17 06:20 Calcium 8.3 mg/dL (8.5-10.1) L 06/09/17 06:20 Total Bilirubin 0.6 mg/dL (0.2-1.0) D 06/09/17 06:20 AST 17 U/L (15-37) D 06/09/17 06:20 ALT 30 U/L (12-78) D 06/09/17 06:20 Alkaline Phosphatase 115 U/L (45-117) D 06/09/17 06:20 Total Protein 6.7 g/dl (6.4-8.2) 06/09/17 06:20 Albumin 3.6 g/dl (3.4-5.0) 06/09/17 06:20 Urine Color Ltyellow 06/08/17 14:45 Urine Appearance Clear 06/08/17 14:45 Urine pH 5.0 (5.0-8.0) 06/08/17 14:45 Ur Specific [place] 1.017 (1.001-1.035) 06/08/17 14:45 Urine Protein Negative (NEGATIVE) 06/08/17 14:45 Urine Glucose (UA) Negative (NEGATIVE) 06/08/17 14:45 Urine Ketones Negative (NEGATIVE) 06/08/17 14:45 Urine Blood Negative (NEGATIVE) 06/08/17 14:45 Urine Nitrite Negative (NEGATIVE) 06/08/17 14:45 Urine Bilirubin Negative (NEGATIVE) 06/08/17 14:45 Urine Urobilinogen Negative mg/dL (0.2-1.0) 06/08/17 14:45 Ur Leukocyte Esterase Negative (NEGATIVE) 06/08/17 14:45 RPR Titer Nonreactive (NONREACTIVE) 06/09/17 06:20 lab noted Assessment: 06/11/17 08:44 mild withdrawal sx Plan: medically supervised detox patient agrees to receive methadone 10 mg today and 5 mg 06/12/17
[2017-06-11] MEDS ORDERED: METHADONE HCL 10 MG TABLET (FOR DETOX USE ONLY) PO SCH (10:00)
[2017-06-11] MEDS: PRENATAL VITAMINS W/ FOLIC ACID TABLET (FP) PO SCH (10:11)
[2017-06-11] MEDS: glipiZIDE-XL 2.5 MG TAB.ER.24 PO SCH (10:11)
[2017-06-11] MEDS: NICOTINE 21 MG/24 HOURS TOPICAL PATCH TD SCH (10:11)
[2017-06-11] MEDS: cloNIDine HCL 0.1 MG TABLET PO SCH ×2 (10:11→22:00)
[2017-06-11] MEDS ORDERED: METHOCARBAMOL 500 MG TABLET PO ONE (11:38)
[2017-06-11] MEDS ORDERED: LIDOCAINE 5% TOPICAL PATCH TP SCH (11:45)
[2017-06-11] MEDS: chlordiazePOXIDE HCL 10 MG CAPSULE PO SCH ×2 (17:28→22:00)
[2017-06-11] MEDS: QUEtiapine FUMARATE 200 MG TABLET PO SCH (22:00)
[2017-06-11] MEDS: THIAMINE HCL 100 MG TABLET (FP) PO SCH (22:00)
[2017-06-11] MEDS ORDERED: LIDOCAINE PATCH REMOVAL MC SCH (22:00)
[2017-06-12] MEDS: chlordiazePOXIDE HCL 10 MG CAPSULE PO SCH (05:23)
[2017-06-12] MEDS: hydrOXYzine PAMOATE 50 MG CAPSULE (FP) PO PRN (05:25)
[2017-06-12] MEDS ORDERED: METHADONE HCL 5 MG TABLET (FOR DETOX USE ONLY) PO SCH (06:00)
[2017-06-12 06:24] VITALS: BP 120/64; PULSE 78; TEMP 97.9
[2017-06-12] MEDS: metFORMIN HCL 500 MG TABLET (FP) PO SCH (06:30)
[2017-06-12] MEDS: INSULIN SLIDING SCALE (NOVOLOG) 1 VIAL SQ SCH (06:51)
[2017-06-12] MEDS ORDERED: glipiZIDE-XL 2.5 MG TAB.ER.24 PO SCH (07:00)
--- NOTE | 2017-06-12 08:23 | DS ---
[facility] Detox Discharge Summary Admission Date: 06/08/17 Discharge Date: 06/12/17 - History Present History: Alcohol Dependence, Opioid Dependence Additional Comments: follow up with after care program as arrangement Pertinent Past History: chronic low back pain nicotine dependence insomnia - Physical Exam Results Vital Signs: Vital Signs Temperature 97.9 F 06/12/17 06:22 Pulse Rate 78 06/12/17 06:22 Respiratory Rate 18 06/12/17 06:22 Blood Pressure 120/64 06/12/17 06:22 O2 Sat by Pulse Oximetry (%) Pertinent Admission Physical Exam Findings: withdrawal signs and symptom - Treatment Hospital Course: Detox Protocol Followed, Detoxed Safely, Responded well, Discharged Condition Good Patient has Accepted a Rehab Referral to: declined - Medication Discharge Medications: Ambulatory Orders Mirtazapine [Remeron -] 15 mg PO HS #30 tablet 07/20/15 Quetiapine Fumarate [Seroquel -] 200 mg PO HS #30 tab 05/28/17 Glipizide [Glipizide ER] 2.5 mg PO DAILY #30 tab.er.24 06/11/17 metFORMIN HCL [Glucophage -] 500 mg PO BID #60 tablet 06/11/17 - Diagnosis (1) Opioid dependence with withdrawal Status: Acute (2) Alcohol dependence with withdrawal, uncomplicated Status: Acute (3) Low back pain Status: Acute (4) Insomnia Status: Acute Qualifiers: Insomnia type: unspecified Qualified Code(s): G47.00 - Insomnia, unspecified (5) Nicotine dependence Status: Chronic Qualifiers: Nicotine product type: cigarettes Substance use status: in withdrawal Qualified Code(s): F17.213 - Nicotine dependence, cigarettes, with withdrawal - AMA Did Patient Leave Against Medical Advice: No
[2017-06-12] MEDS ORDERED: METHADONE HCL 10 MG TABLET (FOR DETOX USE ONLY) PO SCH (10:00)
--- NOTE | 2017-06-12 13:36 | EKG ---
Test Reason : Blood Pressure : / mmHG Vent. Rate : 099 BPM Atrial Rate : 099 BPM P-R Int : 164 ms QRS Dur : 086 ms QT Int : 352 ms P-R-T Axes : 064 052 034 degrees QTc Int : 451 ms NORMAL SINUS RHYTHM NORMAL ECG WHEN COMPARED WITH ECG OF 25-MAY-2017 14:00, NO SIGNIFICANT CHANGE WAS FOUND Confirmed by MD Ortiz Daniel ([id number]) on 06/12/2017 1:36:34 PM Referred By: Confirmed By:Yaron Ortiz MD
[2017-06-13] MEDS ORDERED: METHADONE HCL 5 MG TABLET (FOR DETOX USE ONLY) PO SCH (06:00)
== END 2017-06-12 06:45 | disposition home or self-care (01) | DRG 773 ==
LOC: YASAS 09:06 → Y6N 14:05
PROVIDERS: ADMIT Internal Medicine; ATTEND Internal Medicine
PROC: HZ2ZZZZ Detoxification Services for Substance Abuse Treatment (ICD-10-PCS; principal; 2017-06-08)
DX: F11.23 Opioid dependence with withdrawal (principal); F10.230 Alcohol dependence with withdrawal, uncomplicated; F17.210 Nicotine dependence, cigarettes, uncomplicated; F19.24 Other psychoactive substance dependence with psychoactive substance-induced mood disorder; F43.10 Post-traumatic stress disorder, unspecified; E11.9 Type 2 diabetes mellitus without complications; Z79.84 Long term (current) use of oral hypoglycemic drugs; M54.5 Low back pain; Z59.0 Homelessness
CPT/HCPCS: 36415; 80053; 81003; 82962; 85027; 86593; 93005; 93010; J0735

== ENCOUNTER 2018-09-19 08:37 | Inpatient (IN) | payer OTHER ==
[2018-09-19 09:28] VITALS: BMI 26.3
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
[2018-09-19] MEDS ORDERED: hydrOXYzine PAMOATE 25 MG CAPSULE (FP) PO PRN (10:17)
[2018-09-19] MEDS ORDERED: ACETAMINOPHEN 325 MG TABLET (FP) PO PRN ×2 (10:17)
[2018-09-19] MEDS ORDERED: MAGNESIUM CITRATE 300 ML BOTTLE PO PRN (10:17)
[2018-09-19] MEDS ORDERED: guaiFENesin 200 MG/10 ML 10 ML UNIT-DOSE CUPS PO PRN (10:17)
[2018-09-19] MEDS ORDERED: chlordiazePOXIDE HCL 25 MG CAPSULE PO PRN (10:17)
[2018-09-19] MEDS ORDERED: MAGNESIUM HYDROX 2400MG/30ML ORAL SUSPENSION 30 ML CUP PO PRN (10:17)
[2018-09-19] MEDS ORDERED: MELATONIN 5 MG TABLETS PO PRN (10:17)
[2018-09-19] MEDS ORDERED: NICOTINE POLACRILEX 2 MG GUM BUC PRN (10:17)
[2018-09-19] MEDS ORDERED: IBUPROFEN 400 MG TABLET (FP) PO PRN (10:17)
[2018-09-19] MEDS ORDERED: BISMUTH SUBSALICYLATE 262 MG/15 ML BTL PO PRN (10:17)
[2018-09-19] MEDS: chlordiazePOXIDE HCL 25 MG CAPSULE PO SCH ×3 (12:10→22:26)
[2018-09-19] MEDS: INSULIN SLIDING SCALE (NOVOLOG) 1 VIAL SQ SCH (17:53)
[2018-09-19] MEDS: THIAMINE HCL 100 MG TABLET (FP) PO SCH (22:26)
[2018-09-20] MEDS: chlordiazePOXIDE HCL 25 MG CAPSULE PO SCH ×4 (05:46→22:10)
[2018-09-20] MEDS: METHADONE HCL 40 MG DISPERSABLE TABLET PO SCH (05:46)
[2018-09-20] MEDS: metFORMIN HCL 500 MG TABLET (FP) PO SCH ×2 (06:01→17:27)
[2018-09-20] MEDS: INSULIN SLIDING SCALE (NOVOLOG) 1 VIAL SQ SCH ×2 (06:02→16:53)
[2018-09-20 10:06] LABS: HEMATOCRIT 40.9 % (35.4-49); HEMOGLOBIN 13.3 GM/dL (11.7-16.9); MCH 31.5 pg (25.7-33.7); MCHC 32.5 g/dl (32.0-35.9); MEAN PLT VOLUME 8.2 fl (7.5-11.1); PLATELET COUNT 282 K/MM3 (134-434); RBC 4.21 M/mm3 (4.00-5.60); WHITE BLOOD COUNT 8.9 K/mm3 (4.0-10.0)
[2018-09-20] MEDS: PRENATAL VITAMINS W/ FOLIC ACID TABLET (FP) PO SCH (10:09)
[2018-09-20 10:14] LABS: ALBUMIN 3.2 g/dl (3.4-5.0); BILIRUBIN,TOTAL 0.4 mg/dL (0.2-1); CALCIUM 8.4 mg/dL (8.5-10.1); POTASSIUM 3.8 mmol/L (3.5-5.1); TOT PROT 6.5 g/dl (6.4-8.2)
--- NOTE | 2018-09-20 11:06 | PN ---
S CIWA - CIWA Score Nausea/Vomitin Muscle Tremors: 2 Anxiety: 2 Agitation: 2 Paroxysmal Sweats: 1-Minimal Palms Moist Orientation: 0-Oriented Tacttile Disturbances: 1-Very Mild Itch/Numbness Auditory Disturbances: 1-Very Mild Visual Disturbances: 0-None Headache: 2-Mild CIWA-Ar Total Score: 13 BHS Progress Note (SOAP) Subjective: alert,irritable,anxious,interrupted sleep,tremor Objective: 09/20/18 11:04 Vital Signs Temperature 98.0 F 09/20/18 09:35 Pulse Rate 96 H 09/20/18 09:35 Respiratory Rate 18 09/20/18 09:35 Blood Pressure 140/93 09/20/18 09:35 O2 Sat by Pulse Oximetry (%) Laboratory Last Values WBC 8.9 K/mm3 (4.0-10.0) 09/20/18 07:25 RBC 4.21 M/mm3 (4.00-5.60) 09/20/18 07:25 Hgb 13.3 GM/dL (11.7-16.9) 09/20/18 07:25 Hct 40.9 % (35.4-49) 09/20/18 07:25 MCV 97.0 fl (80-96) H 09/20/18 07:25 MCH 31.5 pg (25.7-33.7) D 09/20/18 07:25 MCHC 32.5 g/dl (32.0-35.9) 09/20/18 07:25 RDW 16.0 % (11.9-15.9) H 09/20/18 07:25 MPV 8.2 fl (7.5-11.1) 09/20/18 07:25 Sodium 138 mmol/L (136-145) 09/20/18 07:25 Potassium 3.8 mmol/L (3.5-5.1) 09/20/18 07:25 Chloride 102 mmol/L (98-107) 09/20/18 07:25 Carbon Dioxide 30 mmol/L (21-32) 09/20/18 07:25 Anion Gap 6 MMOL/L (8-16) L 09/20/18 07:25 BUN 10 mg/dL (7-18) 09/20/18 07:25 Creatinine 1.0 mg/dL (0.55-1.3) 09/20/18 07:25 Est GFR (CKD-EPI)AfAm 101.26 09/20/18 07:25 Est GFR (CKD-EPI)NonAf 87.37 09/20/18 07:25 POC Glucometer 139 UNITS (80-120) 09/20/18 05:45 Random Glucose 175 mg/dL (74-106) H 09/20/18 07:25 Calcium 8.4 mg/dL (8.5-10.1) L 09/20/18 07:25 Total Bilirubin 0.4 mg/dL (0.2-1) 09/20/18 07:25 AST 48 U/L (15-37) H 09/20/18 07:25 ALT 47 U/L (13-61) 09/20/18 07:25 Alkaline Phosphatase 144 U/L (45-117) H 09/20/18 07:25 Total Protein 6.5 g/dl (6.4-8.2) 09/20/18 07:25 Albumin 3.2 g/dl (3.4-5.0) L 09/20/18 07:25 09/20/18 11:05 rpr,hiv test pending Assessment: 09/20/18 11:05 withdrawal symptom Plan: continue detox,bgm monitoring
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
[2018-09-20] MEDS: glipiZIDE-XL 2.5 MG TAB.ER.24 PO SCH (13:22)
[2018-09-20] MEDS: MENTHOL/PHENOL 1 EACH UD MM PRN (14:03)
[2018-09-20] MEDS ORDERED: QUEtiapine FUMARATE 200 MG TABLET PO SCH (22:00)
[2018-09-20] MEDS: THIAMINE HCL 100 MG TABLET (FP) PO SCH (22:10)
[2018-09-21] MEDS: METHADONE HCL 40 MG DISPERSABLE TABLET PO SCH (05:12)
[2018-09-21] MEDS: chlordiazePOXIDE HCL 25 MG CAPSULE PO SCH (05:13)
[2018-09-21] MEDS: INSULIN SLIDING SCALE (NOVOLOG) 1 VIAL SQ SCH ×2 (06:08→16:59)
[2018-09-21] MEDS: metFORMIN HCL 500 MG TABLET (FP) PO SCH ×2 (06:08→16:58)
[2018-09-21] MEDS: MAG HYDROX/AL HYDROX/SIMETH 30 ML UNIT-DOSE CUP PO PRN ×2 (06:56→13:38)
--- NOTE | 2018-09-21 09:58 | PN ---
S CIWA - CIWA Score Nausea/Vomitin-No Nausea/No Vomiting Muscle Tremors: 2 Anxiety: 2 Agitation: 2 Paroxysmal Sweats: 3 Orientation: 0-Oriented Tacttile Disturbances: 0-None Auditory Disturbances: 0-None Visual Disturbances: 0-None Headache: 1-Very Mild CIWA-Ar Total Score: 10 S Progress Note (SOAP) Subjective: c/o sweats, mild headache, anxiety, and mild shakes. Objective: 09/21/18 09:57 Vital Signs 09/21/18 09/21/18 09/21/18 02:07 03:30 06:37 Temperature 98.5 F Pulse Rate 94 H Respiratory 16 18 18 Rate Blood Pressure 128/69 09/21/18 09:23 Temperature 97.9 F Pulse Rate 94 H Respiratory 18 Rate Blood Pressure 134/90 Lab Results WBC 8.9 K/mm3 (4.0-10.0) 09/20/18 07:25 RBC 4.21 M/mm3 (4.00-5.60) 09/20/18 07:25 Hgb 13.3 GM/dL (11.7-16.9) 09/20/18 07:25 Hct 40.9 % (35.4-49) 09/20/18 07:25 MCV 97.0 fl (80-96) H 09/20/18 07:25 MCHC 32.5 g/dl (32.0-35.9) 09/20/18 07:25 RDW 16.0 % (11.9-15.9) H 09/20/18 07:25 Plt Count 282 K/MM3 (134-434) D 09/20/18 07:25 Sodium 138 mmol/L (136-145) 09/20/18 07:25 Potassium 3.8 mmol/L (3.5-5.1) 09/20/18 07:25 Chloride 102 mmol/L (98-107) 09/20/18 07:25 Carbon Dioxide 30 mmol/L (21-32) 09/20/18 07:25 Anion Gap 6 MMOL/L (8-16) L 09/20/18 07:25 BUN 10 mg/dL (7-18) 09/20/18 07:25 Creatinine 1.0 mg/dL (0.55-1.3) 06/07/19 07:25 Random Glucose 175 mg/dL (74-106) H 09/20/18 07:25 Calcium 8.4 mg/dL (8.5-10.1) L 09/20/18 07:25 Labs noted. Assessment: 09/21/18 09:58 AOX3, in no respiratory distress, full rom, ambulating in the unit. Withdrawal symptoms. Plan: continue detox increase fluids.
[2018-09-21] MEDS: PRENATAL VITAMINS W/ FOLIC ACID TABLET (FP) PO SCH (10:14)
[2018-09-21] MEDS: chlordiazePOXIDE HCL 10 MG CAPSULE PO SCH ×3 (10:14→22:05)
[2018-09-21] MEDS: glipiZIDE-XL 2.5 MG TAB.ER.24 PO SCH (10:15)
[2018-09-21] MEDS ORDERED: chlordiazePOXIDE HCL 10 MG CAPSULE PO PRN (11:00)
--- NOTE | 2018-09-21 13:26 | PN ---
[facility] Progress Note Note: Psychiatry Attending's note : Brief meeting with the patient. Seroquel discussed. Endorses some improvement in sleep. Mr Gupta is requesting titration to his usual 300 mg/hs. Patient is noted as ambulatory, steady, alert and fully oriented. Tolerates medication well. No complaint of drowsiness. Feels fine. Seroquel is raised to 300 mg po at bedtime. Patient is agreeable to this plan of care.
[2018-09-21] MEDS ORDERED: QUEtiapine FUMARATE 100 MG TABLET (FP) PO SCH (22:00)
[2018-09-21] MEDS: THIAMINE HCL 100 MG TABLET (FP) PO SCH (22:05)
[2018-09-22] MEDS: chlordiazePOXIDE HCL 10 MG CAPSULE PO SCH (05:28)
[2018-09-22] MEDS: METHADONE HCL 40 MG DISPERSABLE TABLET PO SCH (05:28)
[2018-09-22 06:06] VITALS: BP 114/66; PULSE 104; TEMP 97.7
[2018-09-22] MEDS: MAG HYDROX/AL HYDROX/SIMETH 30 ML UNIT-DOSE CUP PO PRN (06:40)
[2018-09-22] MEDS: MENTHOL/PHENOL 1 EACH UD MM PRN (06:40)
[2018-09-22] MEDS: INSULIN SLIDING SCALE (NOVOLOG) 1 VIAL SQ SCH (07:09)
[2018-09-22] MEDS: metFORMIN HCL 500 MG TABLET (FP) PO SCH (07:09)
[2018-09-22] MEDS: glipiZIDE-XL 2.5 MG TAB.ER.24 PO SCH (09:17)
[2018-09-22] MEDS: PRENATAL VITAMINS W/ FOLIC ACID TABLET (FP) PO SCH (09:17)
--- NOTE | 2018-09-22 10:56 | DS ---
[facility] Detox Discharge Summary Admission Date: 09/19/18 Discharge Date: 09/22/18 - History Present History: Alcohol Dependence Additional Comments: 52 years old male admitted on 09/19/18 for alcohol withdrawal stabilization feeling better today preferring to go home and attend community self help support group alert no acute distress Pertinent Past History: bring in medication list and lab report to endocranologist or primary care provider - Physical Exam Results Vital Signs: Vital Signs Temperature 97.7 F 09/22/18 06:06 Pulse Rate 104 H 09/22/18 06:06 Respiratory Rate 16 09/22/18 06:06 Blood Pressure 114/66 09/22/18 06:06 O2 Sat by Pulse Oximetry (%) Pertinent Admission Physical Exam Findings: alcohol withdrawal sx Laboratory Last Values WBC 8.9 K/mm3 (4.0-10.0) 09/20/18 07:25 RBC 4.21 M/mm3 (4.00-5.60) 09/20/18 07:25 Hgb 13.3 GM/dL (11.7-16.9) 09/20/18 07:25 Hct 40.9 % (35.4-49) 09/20/18 07:25 MCV 97.0 fl (80-96) H 09/20/18 07:25 MCH 31.5 pg (25.7-33.7) D 09/20/18 07:25 MCHC 32.5 g/dl (32.0-35.9) 09/20/18 07:25 RDW 16.0 % (11.9-15.9) H 09/20/18 07:25 Plt Count 282 K/MM3 (134-434) D 09/20/18 07:25 MPV 8.2 fl (7.5-11.1) 09/20/18 07:25 Sodium 138 mmol/L (136-145) 09/20/18 07:25 Potassium 3.8 mmol/L (3.5-5.1) 09/20/18 07:25 Chloride 102 mmol/L (98-107) 09/20/18 07:25 Carbon Dioxide 30 mmol/L (21-32) 09/20/18 07:25 Anion Gap 6 MMOL/L (8-16) L 09/20/18 07:25 BUN 10 mg/dL (7-18) 09/20/18 07:25 Creatinine 1.0 mg/dL (0.55-1.3) 09/20/18 07:25 Est GFR (CKD-EPI)AfAm 101.26 09/20/18 07:25 Est GFR (CKD-EPI)NonAf 87.37 09/20/18 07:25 POC Glucometer 197 UNITS (80-120) 09/22/18 06:39 Random Glucose 175 mg/dL (74-106) H 09/20/18 07:25 Calcium 8.4 mg/dL (8.5-10.1) L 09/20/18 07:25 Total Bilirubin 0.4 mg/dL (0.2-1) 09/20/18 07:25 AST 48 U/L (15-37) H 09/20/18 07:25 ALT 47 U/L (13-61) 09/20/18 07:25 Alkaline Phosphatase 144 U/L (45-117) H 09/20/18 07:25 Total Protein 6.5 g/dl (6.4-8.2) 09/20/18 07:25 Albumin 3.2 g/dl (3.4-5.0) L 09/20/18 07:25 RPR Titer Nonreactive (NONREACTIVE) 09/20/18 07:25 HIV 1&2 Antibody Screen Negative 09/20/18 07:25 HIV P24 Antigen Negative 09/20/18 07:25 lab noted - Treatment Hospital Course: Detox Protocol Followed, Detoxed Safely, Responded well, Discharged Condition Good, Rehab Referral Accepted Patient has Accepted a Rehab Referral to: community self help supprot group - Medication Discharge Medications: Ambulatory Orders Quetiapine Fumarate [Seroquel -] 200 mg PO HS #30 tab 05/28/17 Glipizide [Glipizide ER] 2.5 mg PO DAILY #30 tab.er.24 06/11/17 metFORMIN HCL [Glucophage -] 500 mg PO BID #60 tablet 06/11/17 - Diagnosis (1) Alcohol dependence with withdrawal, uncomplicated Status: Acute (2) Substance induced mood disorder Status: Suspected (3) Nicotine dependence Status: Acute Qualifiers: Nicotine product type: cigarettes Substance use status: in withdrawal Qualified Code(s): F17.213 - Nicotine dependence, cigarettes, with withdrawal (4) Type 2 diabetes mellitus Status: Chronic Qualifiers: Diabetes mellitus watermaster insulin use: without watermaster use Diabetes mellitus complication status: without complication Qualified Code(s): E11.9 - Type 2 diabetes mellitus without complications - AMA Did Patient Leave Against Medical Advice: No
[2018-09-22] MEDS ORDERED: chlordiazePOXIDE HCL 10 MG CAPSULE PO SCH (11:00)
== END 2018-09-22 09:25 | disposition home or self-care (01) | DRG 773 ==
LOC: YASAS 08:37 → Y3N 10:43
PROVIDERS: ADMIT Surgery; ATTEND Surgery
PROC: HZ2ZZZZ Detoxification Services for Substance Abuse Treatment (ICD-10-PCS; principal; 2018-09-19)
DX: F10.230 Alcohol dependence with withdrawal, uncomplicated (principal); F11.20 Opioid dependence, uncomplicated; F17.213 Nicotine dependence, cigarettes, with withdrawal; F19.24 Other psychoactive substance dependence with psychoactive substance-induced mood disorder; F43.10 Post-traumatic stress disorder, unspecified; F32.9 Major depressive disorder, single episode, unspecified; G47.00 Insomnia, unspecified; E11.9 Type 2 diabetes mellitus without complications; Z79.84 Long term (current) use of oral hypoglycemic drugs; Z87.828 Personal history of other (healed) physical injury and trauma; Z91.013 Allergy to seafood; Z91.19 Patient's noncompliance with other medical treatment and regimen
CPT/HCPCS: 36415; 80053; 82962; 85027; 86593; 87389

== ENCOUNTER 2020-08-25 08:36 | Inpatient (IN) | payer OTHER ==
[2020-08-25 09:14] VITALS: BMI 27.3
[2020-08-25] MEDS ORDERED: BISMUTH SUBSALICYLATE 524 MG/30 ML UD PO PRN (09:33)
[2020-08-25] MEDS ORDERED: NICOTINE POLACRILEX 2 MG GUM BUC PRN (09:33)
[2020-08-25] MEDS ORDERED: MAG HYDROX/AL HYDROX/SIMETH 30 ML UNIT-DOSE CUP PO PRN (09:33)
[2020-08-25] MEDS ORDERED: MAGNESIUM HYDROX 2400MG/30ML ORAL SUSPENSION 30 ML CUP PO PRN (09:33)
[2020-08-25] MEDS ORDERED: METHOCARBAMOL 500 MG TABLET PO PRN (09:33)
[2020-08-25] MEDS ORDERED: ONDANSETRON *ODT* 4 MG TABLET SL PRN (09:33)
[2020-08-25] MEDS ORDERED: IBUPROFEN 400 MG TABLET (FP) PO PRN (09:33)
[2020-08-25] MEDS ORDERED: MAGNESIUM CITRATE 300 ML BOTTLE PO PRN (09:33)
[2020-08-25] MEDS ORDERED: ACETAMINOPHEN 325 MG TABLET (FP) PO PRN ×2 (09:33)
[2020-08-25] MEDS ORDERED: MENTHOL/PHENOL 1 EACH UD MM PRN (09:33)
[2020-08-25] MEDS ORDERED: NALOXONE (NARCAN) HCL 4 MG/0.1 ML SPRAY NS PRN (09:33)
[2020-08-25] MEDS: metFORMIN HCL 500 MG TABLET (FP) PO SCH ×2 (12:02→17:32)
[2020-08-25] MEDS: PRENATAL VITAMINS W/ FOLIC ACID TABLET (FP) PO SCH (12:02)
[2020-08-25] MEDS: hydrOXYzine PAMOATE 25 MG CAPSULE (FP) PO SCH ×4 (12:02→22:23)
[2020-08-25] MEDS: NICOTINE 21 MG/24 HOURS TOPICAL PATCH TD SCH (12:02)
[2020-08-25] MEDS: diazePAM 5 MG TABLET PO SCH ×3 (12:03→22:23)
[2020-08-25 12:56] LABS: HEMATOCRIT 42.6 % (35.4-49); HEMOGLOBIN 14.2 GM/dL (11.7-16.9); MCH 30.6 pg (25.7-33.7); MCHC 33.4 g/dl (32.0-35.9); MEAN CELL VOLUME 91.6 fl (80-96); MEAN PLT VOLUME 8.6 fl (7.5-11.1); PLATELET COUNT 266 K/MM3 (134-434); RBC 4.65 M/mm3 (4.00-5.60); RDW 14.8 % (11.9-15.9); WHITE BLOOD COUNT 9.7 K/mm3 (4.0-10.0)
[2020-08-25 13:12] LABS: CALCIUM 8.9 mg/dL (8.5-10.1)
[2020-08-25 13:13] LABS: ALBUMIN 3.7 g/dl (3.4-5.0); BLOOD UREA NITROGEN 7.8 mg/dL (7-18)
[2020-08-25 13:16] LABS: BILIRUBIN,TOTAL 0.3 mg/dL (0.2-1); TOT PROT 7.1 g/dl (6.4-8.2)
[2020-08-25] MEDS: THIAMINE HCL 100 MG TABLET (FP) PO SCH (22:23)
[2020-08-25] MEDS: QUEtiapine FUMARATE 200 MG TABLET PO SCH (22:23)
[2020-08-25] MEDS: MELATONIN 5 MG TABLETS PO SCH (22:24)
[2020-08-26] MEDS ORDERED: METHADONE HCL 40 MG DISPERSABLE TABLET ONE (05:03)
[2020-08-26] MEDS ORDERED: METHADONE HCL 10 MG TABLET ONE (05:03)
[2020-08-26] MEDS ORDERED: MASKS NR ONE (05:10)
[2020-08-26] MEDS: hydrOXYzine PAMOATE 25 MG CAPSULE (FP) PO SCH ×5 (05:13→22:19)
[2020-08-26] MEDS: diazePAM 5 MG TABLET PO SCH ×4 (05:13→22:20)
[2020-08-26] MEDS: METHADONE 80 MG, METHADONE 10 MG PO SCH (05:13)
[2020-08-26] MEDS ORDERED: METHADONE HCL 10 MG TABLET PO SCH (06:00)
[2020-08-26] MEDS: metFORMIN HCL 500 MG TABLET (FP) PO SCH ×2 (06:21→17:32)
[2020-08-26] MEDS: NICOTINE 21 MG/24 HOURS TOPICAL PATCH TD SCH (10:14)
[2020-08-26] MEDS: PRENATAL VITAMINS W/ FOLIC ACID TABLET (FP) PO SCH (10:14)
[2020-08-26] MEDS: MELATONIN 5 MG TABLETS PO SCH (22:19)
[2020-08-26] MEDS: QUEtiapine FUMARATE 200 MG TABLET PO SCH (22:19)
[2020-08-26] MEDS: THIAMINE HCL 100 MG TABLET (FP) PO SCH (22:20)
[2020-08-27] MEDS ORDERED: METHADONE HCL 10 MG TABLET ONE (04:15)
[2020-08-27] MEDS ORDERED: METHADONE HCL 40 MG DISPERSABLE TABLET ONE (04:15)
[2020-08-27] MEDS: hydrOXYzine PAMOATE 25 MG CAPSULE (FP) PO SCH ×5 (05:14→22:24)
[2020-08-27] MEDS: diazePAM 5 MG TABLET PO SCH ×3 (05:14→22:24)
[2020-08-27] MEDS: METHADONE 80 MG, METHADONE 10 MG PO SCH (05:16)
[2020-08-27] MEDS: metFORMIN HCL 500 MG TABLET (FP) PO SCH ×2 (06:47→17:36)
[2020-08-27] MEDS: NICOTINE 21 MG/24 HOURS TOPICAL PATCH TD SCH (10:26)
[2020-08-27] MEDS: PRENATAL VITAMINS W/ FOLIC ACID TABLET (FP) PO SCH (10:26)
[2020-08-27] MEDS: diazePAM 5 MG TABLET PO PRN ×2 (10:27→17:37)
[2020-08-27] MEDS: QUEtiapine FUMARATE 200 MG TABLET PO SCH (22:24)
[2020-08-27] MEDS: MELATONIN 5 MG TABLETS PO SCH (22:24)
[2020-08-27] MEDS: THIAMINE HCL 100 MG TABLET (FP) PO SCH (22:24)
[2020-08-28] MEDS ORDERED: METHADONE HCL 10 MG TABLET ONE (02:31)
[2020-08-28] MEDS ORDERED: METHADONE HCL 40 MG DISPERSABLE TABLET ONE (02:32)
[2020-08-28] MEDS: diazePAM 5 MG TABLET PO SCH ×2 (05:20→18:24)
[2020-08-28] MEDS: METHADONE 80 MG, METHADONE 10 MG PO SCH (05:20)
[2020-08-28] MEDS: hydrOXYzine PAMOATE 25 MG CAPSULE (FP) PO SCH ×5 (05:21→21:36)
[2020-08-28] MEDS: metFORMIN HCL 500 MG TABLET (FP) PO SCH ×2 (07:55→16:49)
[2020-08-28] MEDS: PRENATAL VITAMINS W/ FOLIC ACID TABLET (FP) PO SCH (10:30)
[2020-08-28] MEDS: NICOTINE 21 MG/24 HOURS TOPICAL PATCH TD SCH (10:30)
[2020-08-28 14:09] LABS: SARS-CoV-2 NAA Not Detected (Not Detected)
[2020-08-28] MEDS: THIAMINE HCL 100 MG TABLET (FP) PO SCH (21:36)
[2020-08-28] MEDS: MELATONIN 5 MG TABLETS PO SCH (21:37)
[2020-08-28] MEDS ORDERED: QUEtiapine FUMARATE 200 MG TABLET PO SCH (22:00)
[2020-08-28] MEDS ORDERED: QUEtiapine FUMARATE 100 MG TABLET (FP) PO SCH (22:00)
[2020-08-29] MEDS ORDERED: METHADONE HCL 10 MG TABLET ONE (03:36)
[2020-08-29] MEDS ORDERED: METHADONE HCL 40 MG DISPERSABLE TABLET ONE (03:37)
[2020-08-29] MEDS: METHADONE 80 MG, METHADONE 10 MG PO SCH (05:13)
[2020-08-29] MEDS: hydrOXYzine PAMOATE 25 MG CAPSULE (FP) PO SCH (05:13)
[2020-08-29] MEDS ORDERED: diazePAM 5 MG TABLET PO ONE (06:00)
[2020-08-29 06:36] VITALS: PULSE 111
[2020-08-29] MEDS: metFORMIN HCL 500 MG TABLET (FP) PO SCH (07:28)
[2020-08-29 09:47] VITALS: BP 131/95; TEMP 96.4
== END 2020-08-29 10:00 | disposition home or self-care (01) | DRG 773 ==
LOC: YASAS 08:36 → Y3N 11:03
PROVIDERS: ADMIT Allergy & Immunology; ATTEND Allergy & Immunology
PROC: HZ2ZZZZ Detoxification Services for Substance Abuse Treatment (ICD-10-PCS; principal; 2020-08-25)
DX: F10.230 Alcohol dependence with withdrawal, uncomplicated (principal); F11.20 Opioid dependence, uncomplicated; F17.210 Nicotine dependence, cigarettes, uncomplicated; F19.24 Other psychoactive substance dependence with psychoactive substance-induced mood disorder; F43.10 Post-traumatic stress disorder, unspecified; E11.9 Type 2 diabetes mellitus without complications; Z79.84 Long term (current) use of oral hypoglycemic drugs; G47.00 Insomnia, unspecified; M54.5 Low back pain; G89.29 Other chronic pain; Z87.828 Personal history of other (healed) physical injury and trauma; Z98.890 Other specified postprocedural states; Z91.14 Patient's other noncompliance with medication regimen; Z91.013 Allergy to seafood
CPT/HCPCS: 36415; 80053; 82962; 85027; 86780; 93005; 93010; C9803; U0003; U0005

== ENCOUNTER 2021-01-24 16:26 | Inpatient (IN) | payer OTHER ==
[2021-01-24 10:40] VITALS: BMI 28.7
[2021-01-24] MEDS ORDERED: chlordiazePOXIDE HCL 25 MG CAPSULE PO PRN (18:06)
[2021-01-24] MEDS ORDERED: NICOTINE 10 MG CARTRIDGE (INHALER) IH PRN (18:06)
[2021-01-24] MEDS ORDERED: MENTHOL/PHENOL 1 EACH UD MM PRN (18:06)
[2021-01-24] MEDS ORDERED: BISMUTH SUBSALICYLATE 524 MG/30 ML PO PRN (18:06)
[2021-01-24] MEDS ORDERED: MAG HYDROX/AL HYDROX/SIMETH 30 ML UNIT-DOSE CUP PO PRN (18:06)
[2021-01-24] MEDS ORDERED: METHOCARBAMOL 500 MG TABLET PO PRN (18:06)
[2021-01-24] MEDS ORDERED: IBUPROFEN 400 MG TABLET (FP) PO PRN (18:06)
[2021-01-24] MEDS ORDERED: NALOXONE (NARCAN) HCL 4 MG/0.1 ML SPRAY NS PRN (18:06)
[2021-01-24] MEDS ORDERED: MAGNESIUM HYDROX 2400MG/30ML ORAL SUSPENSION 30 ML CUP PO PRN (18:06)
[2021-01-24] MEDS ORDERED: MAGNESIUM CITRATE 300 ML BOTTLE PO PRN (18:06)
[2021-01-24] MEDS ORDERED: ACETAMINOPHEN 325 MG TABLET (FP) PO PRN ×2 (18:06)
[2021-01-24] MEDS ORDERED: ONDANSETRON *ODT* 4 MG TABLET SL PRN (18:06)
[2021-01-24] MEDS ORDERED: LORazepam 1 MG TABLET PO PRN (18:54)
[2021-01-24] MEDS ORDERED: PNEUMOC 13-VAL CONJ-DIP CRM/PF 0.5 ML DISP.SYRIN IM ONE (18:57)
[2021-01-24] MEDS: NICOTINE 21 MG/24 HOURS TOPICAL PATCH TD SCH (21:22)
[2021-01-24] MEDS: INSULIN SLIDING SCALE (NOVOLOG) 1 VIAL SQ SCH (21:22)
[2021-01-24] MEDS: THIAMINE HCL 100 MG TABLET (FP) PO SCH (21:23)
[2021-01-24] MEDS: cloNIDine HCL 0.1 MG TABLET PO PRN (21:23)
[2021-01-24] MEDS: LORazepam 2 MG TABLET PO SCH ×2 (21:24→23:04)
[2021-01-24] MEDS: MELATONIN 5 MG TABLETS PO SCH (21:25)
[2021-01-24] MEDS: hydrOXYzine PAMOATE 25 MG CAPSULE (FP) PO SCH (21:26)
[2021-01-24] MEDS ORDERED: chlordiazePOXIDE HCL 25 MG CAPSULE PO SCH (23:00)
[2021-01-25] MEDS: cloNIDine HCL 0.1 MG TABLET PO PRN ×3 (05:39→20:51)
[2021-01-25] MEDS: LORazepam 2 MG TABLET PO SCH ×3 (05:39→17:12)
[2021-01-25] MEDS: hydrOXYzine PAMOATE 25 MG CAPSULE (FP) PO SCH ×5 (05:39→21:04)
[2021-01-25] MEDS: INSULIN SLIDING SCALE (NOVOLOG) 1 VIAL SQ SCH ×3 (07:09→17:07)
[2021-01-25] MEDS ORDERED: methaDONE HCL 10 MG TABLET PO ONE (10:00)
[2021-01-25] MEDS ORDERED: glipiZIDE-XL 2.5 MG TAB.ER.24 PO SCH (10:00)
[2021-01-25] MEDS ORDERED: metFORMIN HCL 500 MG TABLET (FP) PO SCH (10:00)
[2021-01-25] MEDS ORDERED: ALBUTEROL SO4 0.083% IH SOL 2.5 MG/3 ML VIAL.NEB. NEB PRN (10:05)
[2021-01-25] MEDS ORDERED: ALBUTEROL SO4 HFA INHALER IH PRN (10:05)
[2021-01-25] MEDS: NICOTINE 21 MG/24 HOURS TOPICAL PATCH TD SCH (10:08)
[2021-01-25] MEDS ORDERED: amLODIPine BESYLATE 5 MG TABLET (FP) PO SCH (10:15)
[2021-01-25] MEDS ORDERED: methaDONE 80 MG, methaDONE 10 MG PO ONE (10:35)
[2021-01-25] MEDS ORDERED: methaDONE HCL 10 MG TABLET ONE (10:52)
[2021-01-25] MEDS ORDERED: methaDONE HCL 40 MG DISPERSABLE TABLET ONE (10:52)
[2021-01-25 11:01] LABS: CALCIUM 8.4 mg/dL (8.5-10.1)
[2021-01-25 11:02] LABS: ALBUMIN 3.1 g/dl (3.4-5.0); BLOOD UREA NITROGEN 12.8 mg/dL (7-18)
[2021-01-25 11:05] LABS: CREATININE 0.9 mg/dL (0.55-1.3)
[2021-01-25 11:07] LABS: BILIRUBIN,TOTAL 0.2 mg/dL (0.2-1); HEMATOCRIT 41.4 % (35.4-49); HEMOGLOBIN 13.6 GM/dL (11.7-16.9); MCH 30.8 pg (25.7-33.7); MCHC 32.8 g/dl (32.0-35.9); MEAN CELL VOLUME 93.9 fl (80-96); MEAN PLT VOLUME 8.4 fl (7.5-11.1); PLATELET COUNT 263 10^3/uL (134-434); RBC 4.41 M/mm3 (4.00-5.60); RDW 15.5 % (11.9-15.9); TOT PROT 6.8 g/dl (6.4-8.2); WHITE BLOOD COUNT 8.5 K/mm3 (4.0-10.0)
[2021-01-25] MEDS ORDERED: FLU VACC QS2021-22(6MOS UP)/PF 60 MCG/0.5 ML SYRINGE IM ONE (13:00)
[2021-01-25] MEDS ORDERED: PNEUMOCOCCAL 23 VACCINE 0.5 ML VIAL IM ONE (13:00)
[2021-01-25] MEDS ORDERED: LISINOPRIL 10 MG TABLET PO SCH (13:15)
[2021-01-25 13:58] LABS: HIV INTERPRETATION NEGATIVE (NEGATIVE)
[2021-01-25] MEDS ORDERED: LORazepam 2 MG TABLET PO ONE (15:30)
[2021-01-25] MEDS: metFORMIN HCL 500 MG TABLET (FP) PO SCH (17:12)
[2021-01-25] MEDS: QUEtiapine FUMARATE 200 MG TABLET PO SCH (21:03)
[2021-01-25] MEDS: THIAMINE HCL 100 MG TABLET (FP) PO SCH (21:04)
[2021-01-25] MEDS: LISINOPRIL 10 MG TABLET PO SCH (21:04)
[2021-01-25] MEDS: MELATONIN 5 MG TABLETS PO SCH (21:05)
[2021-01-26] MEDS: LORazepam 2 MG TABLET PO SCH (00:03)
[2021-01-26] MEDS ORDERED: methaDONE HCL 40 MG DISPERSABLE TABLET ONE (04:12)
[2021-01-26] MEDS ORDERED: methaDONE HCL 10 MG TABLET ONE (04:12)
[2021-01-26] MEDS ORDERED: chlordiazePOXIDE HCL 25 MG CAPSULE PO SCH (05:00)
[2021-01-26] MEDS: methaDONE 80 MG, methaDONE 10 MG PO SCH (05:41)
[2021-01-26] MEDS: LORazepam 1 MG TABLET PO SCH ×4 (05:42→22:20)
[2021-01-26] MEDS: hydrOXYzine PAMOATE 25 MG CAPSULE (FP) PO SCH ×5 (05:43→22:22)
[2021-01-26] MEDS ORDERED: methaDONE HCL 10 MG TABLET PO SCH (06:00)
[2021-01-26] MEDS: metFORMIN HCL 500 MG TABLET (FP) PO SCH ×2 (06:03→16:42)
[2021-01-26] MEDS: glipiZIDE-XL 2.5 MG TAB.ER.24 PO SCH (06:03)
[2021-01-26] MEDS: INSULIN SLIDING SCALE (NOVOLOG) 1 VIAL SQ SCH ×2 (06:03→17:01)
[2021-01-26] MEDS: NICOTINE 21 MG/24 HOURS TOPICAL PATCH TD SCH (10:15)
[2021-01-26] MEDS: amLODIPine BESYLATE 5 MG TABLET (FP) PO SCH (10:15)
[2021-01-26] MEDS: LISINOPRIL 10 MG TABLET PO SCH ×2 (10:16→22:20)
[2021-01-26] MEDS: cloNIDine HCL 0.1 MG TABLET PO PRN (17:51)
[2021-01-26] MEDS: QUEtiapine FUMARATE 200 MG TABLET PO SCH (22:19)
[2021-01-26] MEDS: THIAMINE HCL 100 MG TABLET (FP) PO SCH (22:19)
[2021-01-26] MEDS: MELATONIN 5 MG TABLETS PO SCH (22:20)
[2021-01-27] MEDS ORDERED: LORazepam 0.5 MG TABLET PO PRN
[2021-01-27] MEDS ORDERED: chlordiazePOXIDE HCL 10 MG CAPSULE PO PRN
[2021-01-27] MEDS ORDERED: methaDONE HCL 40 MG DISPERSABLE TABLET ONE (04:45)
[2021-01-27] MEDS ORDERED: methaDONE HCL 10 MG TABLET ONE (04:45)
[2021-01-27] MEDS ORDERED: chlordiazePOXIDE HCL 10 MG CAPSULE PO SCH (05:00)
[2021-01-27] MEDS: LORazepam 0.5 MG TABLET PO SCH ×4 (05:47→22:29)
[2021-01-27] MEDS: methaDONE 80 MG, methaDONE 10 MG PO SCH (05:47)
[2021-01-27] MEDS: hydrOXYzine PAMOATE 25 MG CAPSULE (FP) PO SCH ×5 (05:48→22:29)
[2021-01-27] MEDS: glipiZIDE-XL 2.5 MG TAB.ER.24 PO SCH (08:00)
[2021-01-27] MEDS: metFORMIN HCL 500 MG TABLET (FP) PO SCH ×2 (08:00→18:00)
[2021-01-27] MEDS: INSULIN SLIDING SCALE (NOVOLOG) 1 VIAL SQ SCH ×2 (08:00→18:02)
[2021-01-27] MEDS: NICOTINE 21 MG/24 HOURS TOPICAL PATCH TD SCH (10:48)
[2021-01-27] MEDS: amLODIPine BESYLATE 5 MG TABLET (FP) PO SCH (10:49)
[2021-01-27] MEDS: LISINOPRIL 10 MG TABLET PO SCH ×2 (10:50→22:29)
[2021-01-27] MEDS: HYDROCHLOROTHIAZIDE 25 MG TABLET (FP) PO SCH (12:33)
[2021-01-27] MEDS ORDERED: QUEtiapine FUMARATE 300 MG TABLET PO SCH (14:06)
[2021-01-27] MEDS: MELATONIN 5 MG TABLETS PO SCH (22:29)
[2021-01-27] MEDS: THIAMINE HCL 100 MG TABLET (FP) PO SCH (22:29)
[2021-01-28] MEDS ORDERED: methaDONE HCL 10 MG TABLET ONE (04:19)
[2021-01-28] MEDS ORDERED: methaDONE HCL 40 MG DISPERSABLE TABLET ONE (04:19)
[2021-01-28] MEDS ORDERED: LORazepam 0.5 MG TABLET PO ONE (05:00)
[2021-01-28] MEDS ORDERED: chlordiazePOXIDE HCL 10 MG CAPSULE PO SCH (05:00)
[2021-01-28] MEDS: methaDONE 80 MG, methaDONE 10 MG PO SCH (05:50)
[2021-01-28] MEDS: hydrOXYzine PAMOATE 25 MG CAPSULE (FP) PO SCH ×2 (05:51→10:28)
[2021-01-28] MEDS: glipiZIDE-XL 2.5 MG TAB.ER.24 PO SCH (06:48)
[2021-01-28] MEDS: metFORMIN HCL 500 MG TABLET (FP) PO SCH (06:48)
[2021-01-28] MEDS: INSULIN SLIDING SCALE (NOVOLOG) 1 VIAL SQ SCH (07:07)
[2021-01-28] MEDS: amLODIPine BESYLATE 5 MG TABLET (FP) PO SCH (10:27)
[2021-01-28] MEDS: HYDROCHLOROTHIAZIDE 25 MG TABLET (FP) PO SCH (10:27)
[2021-01-28] MEDS: LISINOPRIL 10 MG TABLET PO SCH (10:28)
[2021-01-28] MEDS: NICOTINE 21 MG/24 HOURS TOPICAL PATCH TD SCH (10:28)
[2021-01-28 13:22] VITALS: BP 136/83; PULSE 94; TEMP 97.1
[2021-01-29] MEDS ORDERED: chlordiazePOXIDE HCL 10 MG CAPSULE PO ONE (05:00)
== END 2021-01-28 13:10 | disposition other institution (70) | DRG 773 ==
LOC: YASAS 16:26 → Y6N 19:16
PROVIDERS: ADMIT Allergy & Immunology; ATTEND Allergy & Immunology
PROC: HZ2ZZZZ Detoxification Services for Substance Abuse Treatment (ICD-10-PCS; principal; 2021-01-24)
DX: F10.230 Alcohol dependence with withdrawal, uncomplicated (principal); F11.20 Opioid dependence, uncomplicated; F14.20 Cocaine dependence, uncomplicated; F17.210 Nicotine dependence, cigarettes, uncomplicated; F19.24 Other psychoactive substance dependence with psychoactive substance-induced mood disorder; F19.282 Other psychoactive substance dependence with psychoactive substance-induced sleep disorder; F43.10 Post-traumatic stress disorder, unspecified; F32.9 Major depressive disorder, single episode, unspecified; E11.9 Type 2 diabetes mellitus without complications; J45.909 Unspecified asthma, uncomplicated; R03.0 Elevated blood-pressure reading, without diagnosis of hypertension; Z91.013 Allergy to seafood; Z79.84 Long term (current) use of oral hypoglycemic drugs; Z87.828 Personal history of other (healed) physical injury and trauma; Z56.0 Unemployment, unspecified
CPT/HCPCS: 36415; 71046-TC-FY; 80053; 82550; 82962; 83735; 83880; 84484; 85025; 85027; 86780; 87389; 87804; 90686; 90732; 93005; 93010; 99281-25; C9803; G0008; G0009; J0735; U0003; U0005

== ENCOUNTER 2021-01-28 13:21 | Inpatient (IN) | payer OTHER ==
[2021-01-28] MEDS ORDERED: MAG HYDROX/AL HYDROX/SIMETH 30 ML UNIT-DOSE CUP PO PRN (15:06)
[2021-01-28] MEDS ORDERED: LOPERAMIDE HCL 2 MG CAPSULE PO PRN (15:06)
[2021-01-28] MEDS ORDERED: MAGNESIUM CITRATE 300 ML BOTTLE PO PRN (15:06)
[2021-01-28] MEDS ORDERED: guaiFENesin 200 MG/10 ML 10 ML UNIT-DOSE CUPS PO PRN (15:06)
[2021-01-28] MEDS ORDERED: MENTHOL/PHENOL 1 EACH UD MM PRN (15:06)
[2021-01-28] MEDS ORDERED: ACETAMINOPHEN 325 MG TABLET (FP) PO PRN (15:06)
[2021-01-28] MEDS ORDERED: IBUPROFEN 400 MG TABLET (FP) PO PRN (15:06)
[2021-01-28] MEDS ORDERED: P-EPHED 60MG/TRIPROLIDI 2.5MG TABLET PO PRN (15:06)
[2021-01-28] MEDS ORDERED: MAGNESIUM HYDROX 2400MG/30ML ORAL SUSPENSION 30 ML CUP PO PRN (15:06)
[2021-01-28] MEDS ORDERED: ALBUTEROL SO4 HFA INHALER IH PRN (15:31)
[2021-01-28] MEDS: metFORMIN HCL 500 MG TABLET (FP) PO SCH (16:41)
[2021-01-28] MEDS: INSULIN SLIDING SCALE (NOVOLOG) 1 VIAL SQ SCH (17:27)
[2021-01-28] MEDS: THIAMINE HCL 100 MG TABLET (FP) PO SCH (21:38)
[2021-01-28] MEDS: QUEtiapine FUMARATE 300 MG TABLET PO SCH (21:38)
[2021-01-28] MEDS: MELATONIN 5 MG TABLETS PO SCH (21:38)
[2021-01-28] MEDS: LISINOPRIL 10 MG TABLET PO SCH (21:38)
[2021-01-28] MEDS ORDERED: MELATONIN 5 MG TABLETS PO SCH (22:00)
[2021-01-29] MEDS ORDERED: methaDONE HCL 10 MG TABLET PO SCH (06:00)
[2021-01-29] MEDS: INSULIN SLIDING SCALE (NOVOLOG) 1 VIAL SQ SCH ×2 (06:22→16:54)
[2021-01-29] MEDS ORDERED: methaDONE HCL 40 MG DISPERSABLE TABLET ONE (06:23)
[2021-01-29] MEDS ORDERED: methaDONE HCL 10 MG TABLET ONE (06:23)
[2021-01-29] MEDS: metFORMIN HCL 500 MG TABLET (FP) PO SCH ×2 (06:23→16:53)
[2021-01-29] MEDS: methaDONE 80 MG, methaDONE 10 MG PO SCH (06:24)
[2021-01-29] MEDS ORDERED: PT OWN MED DRAWER 7, Y5N ONE (06:26)
[2021-01-29] MEDS ORDERED: glipiZIDE 5 MG TABLET (FP) PO SCH (07:00)
[2021-01-29] MEDS: glipiZIDE-XL 2.5 MG TAB.ER.24 PO SCH (07:16)
[2021-01-29] MEDS: PRENATAL VITAMINS W/ FOLIC ACID TABLET (FP) PO SCH (09:51)
[2021-01-29] MEDS: NICOTINE 7 MG/24 HOURS TOPICAL PATCH TD SCH (09:51)
[2021-01-29] MEDS: LISINOPRIL 10 MG TABLET PO SCH ×2 (09:52→21:29)
[2021-01-29] MEDS: hydrOXYzine PAMOATE 25 MG CAPSULE (FP) PO PRN ×2 (09:52→21:29)
[2021-01-29] MEDS: amLODIPine BESYLATE 10 MG TABLET (FP) PO SCH (09:52)
[2021-01-29] MEDS: NICOTINE 10 MG CARTRIDGE (INHALER) IH PRN (09:53)
[2021-01-29] MEDS: THIAMINE HCL 100 MG TABLET (FP) PO SCH (21:29)
[2021-01-29] MEDS: QUEtiapine FUMARATE 300 MG TABLET PO SCH (21:29)
[2021-01-29] MEDS: MELATONIN 5 MG TABLETS PO SCH (21:29)
[2021-01-30] MEDS ORDERED: methaDONE HCL 40 MG DISPERSABLE TABLET ONE (02:40)
[2021-01-30] MEDS ORDERED: methaDONE HCL 10 MG TABLET ONE (02:40)
[2021-01-30] MEDS ORDERED: PT OWN MED DRAWER 7, Y5N ONE (02:41)
[2021-01-30] MEDS: glipiZIDE-XL 2.5 MG TAB.ER.24 PO SCH (06:25)
[2021-01-30] MEDS: metFORMIN HCL 500 MG TABLET (FP) PO SCH ×2 (06:25→17:03)
[2021-01-30] MEDS: INSULIN SLIDING SCALE (NOVOLOG) 1 VIAL SQ SCH ×2 (06:25→17:04)
[2021-01-30] MEDS: methaDONE 80 MG, methaDONE 10 MG PO SCH (06:25)
[2021-01-30] MEDS: NICOTINE 7 MG/24 HOURS TOPICAL PATCH TD SCH (09:53)
[2021-01-30] MEDS: amLODIPine BESYLATE 10 MG TABLET (FP) PO SCH (09:53)
[2021-01-30] MEDS: LISINOPRIL 10 MG TABLET PO SCH ×2 (09:53→21:28)
[2021-01-30] MEDS: PRENATAL VITAMINS W/ FOLIC ACID TABLET (FP) PO SCH (09:53)
[2021-01-30] MEDS: NICOTINE 10 MG CARTRIDGE (INHALER) IH PRN (09:54)
[2021-01-30] MEDS: QUEtiapine FUMARATE 300 MG TABLET PO SCH (21:28)
[2021-01-30] MEDS: MELATONIN 5 MG TABLETS PO SCH (21:28)
[2021-01-30] MEDS: THIAMINE HCL 100 MG TABLET (FP) PO SCH (21:28)
[2021-01-30] MEDS: hydrOXYzine PAMOATE 25 MG CAPSULE (FP) PO PRN (21:29)
[2021-01-31] MEDS ORDERED: methaDONE HCL 40 MG DISPERSABLE TABLET ONE (03:27)
[2021-01-31] MEDS ORDERED: methaDONE HCL 10 MG TABLET ONE (03:27)
[2021-01-31] MEDS: metFORMIN HCL 500 MG TABLET (FP) PO SCH ×2 (06:13→17:08)
[2021-01-31] MEDS: methaDONE 80 MG, methaDONE 10 MG PO SCH (06:13)
[2021-01-31] MEDS: glipiZIDE-XL 2.5 MG TAB.ER.24 PO SCH (06:15)
[2021-01-31] MEDS: INSULIN SLIDING SCALE (NOVOLOG) 1 VIAL SQ SCH ×2 (06:15→17:33)
[2021-01-31] MEDS: NICOTINE 7 MG/24 HOURS TOPICAL PATCH TD SCH (10:06)
[2021-01-31] MEDS: amLODIPine BESYLATE 10 MG TABLET (FP) PO SCH (10:07)
[2021-01-31] MEDS: LISINOPRIL 10 MG TABLET PO SCH ×2 (10:07→21:54)
[2021-01-31] MEDS: PRENATAL VITAMINS W/ FOLIC ACID TABLET (FP) PO SCH (10:07)
[2021-01-31] MEDS ORDERED: COLLOIDAL OATMEAL 1 BAR EACH TP PRN (11:08)
[2021-01-31] MEDS: MELATONIN 5 MG TABLETS PO SCH (21:53)
[2021-01-31] MEDS: THIAMINE HCL 100 MG TABLET (FP) PO SCH (21:53)
[2021-01-31] MEDS: hydrOXYzine PAMOATE 25 MG CAPSULE (FP) PO PRN (21:53)
[2021-01-31] MEDS: QUEtiapine FUMARATE 300 MG TABLET PO SCH (21:54)
[2021-02-01] MEDS ORDERED: methaDONE HCL 10 MG TABLET ONE (03:18)
[2021-02-01] MEDS ORDERED: methaDONE HCL 40 MG DISPERSABLE TABLET ONE (03:18)
[2021-02-01] MEDS: metFORMIN HCL 500 MG TABLET (FP) PO SCH ×2 (06:34→16:23)
[2021-02-01] MEDS: glipiZIDE-XL 2.5 MG TAB.ER.24 PO SCH (06:35)
[2021-02-01] MEDS: methaDONE 80 MG, methaDONE 10 MG PO SCH (06:35)
[2021-02-01] MEDS: INSULIN SLIDING SCALE (NOVOLOG) 1 VIAL SQ SCH ×2 (06:35→16:23)
[2021-02-01] MEDS: PRENATAL VITAMINS W/ FOLIC ACID TABLET (FP) PO SCH (10:36)
[2021-02-01] MEDS: LISINOPRIL 10 MG TABLET PO SCH ×2 (10:37→21:34)
[2021-02-01] MEDS: NICOTINE 7 MG/24 HOURS TOPICAL PATCH TD SCH (10:37)
[2021-02-01] MEDS: amLODIPine BESYLATE 10 MG TABLET (FP) PO SCH (10:37)
[2021-02-01] MEDS: MELATONIN 5 MG TABLETS PO SCH (21:32)
[2021-02-01] MEDS: THIAMINE HCL 100 MG TABLET (FP) PO SCH (21:32)
[2021-02-01] MEDS: QUEtiapine FUMARATE 300 MG TABLET PO SCH (21:34)
[2021-02-02] MEDS ORDERED: methaDONE HCL 40 MG DISPERSABLE TABLET ONE (03:00)
[2021-02-02] MEDS ORDERED: methaDONE HCL 10 MG TABLET ONE (03:00)
[2021-02-02] MEDS: metFORMIN HCL 500 MG TABLET (FP) PO SCH ×2 (06:06→16:56)
[2021-02-02] MEDS: methaDONE 80 MG, methaDONE 10 MG PO SCH (06:06)
[2021-02-02] MEDS: INSULIN SLIDING SCALE (NOVOLOG) 1 VIAL SQ SCH ×2 (06:08→17:11)
[2021-02-02] MEDS: glipiZIDE-XL 2.5 MG TAB.ER.24 PO SCH (06:08)
[2021-02-02] MEDS: NICOTINE 7 MG/24 HOURS TOPICAL PATCH TD SCH (09:53)
[2021-02-02] MEDS: PRENATAL VITAMINS W/ FOLIC ACID TABLET (FP) PO SCH (09:53)
[2021-02-02] MEDS: amLODIPine BESYLATE 10 MG TABLET (FP) PO SCH (10:00)
[2021-02-02] MEDS: LISINOPRIL 10 MG TABLET PO SCH ×2 (10:00→21:39)
[2021-02-02] MEDS ORDERED: COLLOIDAL OATMEAL 1 BAR EACH TP PRN (10:41)
[2021-02-02] MEDS ORDERED: JANSSEN COVID-19 VAC,AD26/PF 0.5 ML IM ONE (12:00)
[2021-02-02] MEDS: QUEtiapine FUMARATE 300 MG TABLET PO SCH (21:38)
[2021-02-02] MEDS: MELATONIN 5 MG TABLETS PO SCH (21:38)
[2021-02-02] MEDS: THIAMINE HCL 100 MG TABLET (FP) PO SCH (21:38)
[2021-02-02] MEDS: hydrOXYzine PAMOATE 25 MG CAPSULE (FP) PO PRN (21:38)
[2021-02-03] MEDS ORDERED: methaDONE HCL 40 MG DISPERSABLE TABLET ONE (03:09)
[2021-02-03] MEDS ORDERED: methaDONE HCL 10 MG TABLET ONE (03:09)
[2021-02-03] MEDS: metFORMIN HCL 500 MG TABLET (FP) PO SCH ×2 (06:07→16:53)
[2021-02-03] MEDS: methaDONE 80 MG, methaDONE 10 MG PO SCH (06:08)
[2021-02-03] MEDS: INSULIN SLIDING SCALE (NOVOLOG) 1 VIAL SQ SCH ×2 (06:09→16:53)
[2021-02-03] MEDS: glipiZIDE-XL 2.5 MG TAB.ER.24 PO SCH (06:09)
[2021-02-03] MEDS: amLODIPine BESYLATE 10 MG TABLET (FP) PO SCH (09:57)
[2021-02-03] MEDS: LISINOPRIL 10 MG TABLET PO SCH ×2 (09:57→21:33)
[2021-02-03] MEDS: NICOTINE 7 MG/24 HOURS TOPICAL PATCH TD SCH (09:58)
[2021-02-03] MEDS: PRENATAL VITAMINS W/ FOLIC ACID TABLET (FP) PO SCH (09:58)
[2021-02-03] MEDS: QUEtiapine FUMARATE 300 MG TABLET PO SCH (21:33)
[2021-02-03] MEDS: THIAMINE HCL 100 MG TABLET (FP) PO SCH (21:33)
[2021-02-03] MEDS: MELATONIN 5 MG TABLETS PO SCH (21:33)
[2021-02-03] MEDS: hydrOXYzine PAMOATE 25 MG CAPSULE (FP) PO PRN (21:33)
[2021-02-04] MEDS ORDERED: methaDONE HCL 40 MG DISPERSABLE TABLET ONE (03:21)
[2021-02-04] MEDS ORDERED: methaDONE HCL 10 MG TABLET ONE (03:21)
[2021-02-04] MEDS: metFORMIN HCL 500 MG TABLET (FP) PO SCH ×2 (06:35→16:48)
[2021-02-04] MEDS: INSULIN SLIDING SCALE (NOVOLOG) 1 VIAL SQ SCH ×2 (06:36→16:54)
[2021-02-04] MEDS: methaDONE 80 MG, methaDONE 10 MG PO SCH (06:37)
[2021-02-04] MEDS: glipiZIDE-XL 2.5 MG TAB.ER.24 PO SCH (06:39)
[2021-02-04] MEDS: NICOTINE 7 MG/24 HOURS TOPICAL PATCH TD SCH (10:02)
[2021-02-04] MEDS: PRENATAL VITAMINS W/ FOLIC ACID TABLET (FP) PO SCH (10:02)
[2021-02-04] MEDS: LISINOPRIL 10 MG TABLET PO SCH ×2 (10:05→21:33)
[2021-02-04] MEDS: amLODIPine BESYLATE 10 MG TABLET (FP) PO SCH (10:05)
[2021-02-04] MEDS: MELATONIN 5 MG TABLETS PO SCH (21:33)
[2021-02-04] MEDS: THIAMINE HCL 100 MG TABLET (FP) PO SCH (21:33)
[2021-02-04] MEDS: QUEtiapine FUMARATE 300 MG TABLET PO SCH (21:33)
[2021-02-05] MEDS: metFORMIN HCL 500 MG TABLET (FP) PO SCH ×2 (06:29→16:52)
[2021-02-05] MEDS ORDERED: methaDONE HCL 40 MG DISPERSABLE TABLET ONE (06:31)
[2021-02-05] MEDS: methaDONE 80 MG, methaDONE 10 MG PO SCH (06:31)
[2021-02-05] MEDS ORDERED: methaDONE HCL 10 MG TABLET ONE (06:31)
[2021-02-05] MEDS: glipiZIDE-XL 2.5 MG TAB.ER.24 PO SCH (06:33)
[2021-02-05] MEDS: INSULIN SLIDING SCALE (NOVOLOG) 1 VIAL SQ SCH ×2 (06:33→16:57)
[2021-02-05] MEDS: amLODIPine BESYLATE 10 MG TABLET (FP) PO SCH (10:12)
[2021-02-05] MEDS: NICOTINE 7 MG/24 HOURS TOPICAL PATCH TD SCH (10:12)
[2021-02-05] MEDS: LISINOPRIL 10 MG TABLET PO SCH ×2 (10:12→21:27)
[2021-02-05] MEDS: PRENATAL VITAMINS W/ FOLIC ACID TABLET (FP) PO SCH (10:12)
[2021-02-05] MEDS ORDERED: PT OWN MED DRAWER 7, Y5N ONE (15:23)
[2021-02-05] MEDS: QUEtiapine FUMARATE 300 MG TABLET PO SCH (21:27)
[2021-02-05] MEDS: MELATONIN 5 MG TABLETS PO SCH (21:27)
[2021-02-05] MEDS: THIAMINE HCL 100 MG TABLET (FP) PO SCH (21:27)
[2021-02-06] MEDS ORDERED: methaDONE HCL 40 MG DISPERSABLE TABLET ONE (03:12)
[2021-02-06] MEDS ORDERED: methaDONE HCL 10 MG TABLET ONE (03:12)
[2021-02-06] MEDS: methaDONE 80 MG, methaDONE 10 MG PO SCH (06:27)
[2021-02-06] MEDS: metFORMIN HCL 500 MG TABLET (FP) PO SCH ×2 (06:28→16:43)
[2021-02-06] MEDS: glipiZIDE-XL 2.5 MG TAB.ER.24 PO SCH (07:33)
[2021-02-06] MEDS: INSULIN SLIDING SCALE (NOVOLOG) 1 VIAL SQ SCH ×2 (07:34→16:46)
[2021-02-06] MEDS: amLODIPine BESYLATE 10 MG TABLET (FP) PO SCH (09:48)
[2021-02-06] MEDS: PRENATAL VITAMINS W/ FOLIC ACID TABLET (FP) PO SCH (09:48)
[2021-02-06] MEDS: LISINOPRIL 10 MG TABLET PO SCH ×2 (09:48→21:47)
[2021-02-06] MEDS: NICOTINE 7 MG/24 HOURS TOPICAL PATCH TD SCH (09:49)
[2021-02-06] MEDS: QUEtiapine FUMARATE 300 MG TABLET PO SCH (21:47)
[2021-02-06] MEDS: MELATONIN 5 MG TABLETS PO SCH (21:47)
[2021-02-06] MEDS: THIAMINE HCL 100 MG TABLET (FP) PO SCH (21:47)
[2021-02-07] MEDS ORDERED: methaDONE HCL 10 MG TABLET ONE (03:18)
[2021-02-07] MEDS ORDERED: methaDONE HCL 40 MG DISPERSABLE TABLET ONE (03:18)
[2021-02-07] MEDS: glipiZIDE-XL 2.5 MG TAB.ER.24 PO SCH (06:41)
[2021-02-07] MEDS: methaDONE 80 MG, methaDONE 10 MG PO SCH (06:41)
[2021-02-07] MEDS: metFORMIN HCL 500 MG TABLET (FP) PO SCH ×2 (06:41→16:48)
[2021-02-07] MEDS: INSULIN SLIDING SCALE (NOVOLOG) 1 VIAL SQ SCH ×2 (06:42→16:48)
[2021-02-07] MEDS: NICOTINE 7 MG/24 HOURS TOPICAL PATCH TD SCH (09:32)
[2021-02-07] MEDS: PRENATAL VITAMINS W/ FOLIC ACID TABLET (FP) PO SCH (09:32)
[2021-02-07] MEDS: amLODIPine BESYLATE 10 MG TABLET (FP) PO SCH (09:33)
[2021-02-07] MEDS: LISINOPRIL 10 MG TABLET PO SCH ×2 (09:33→21:43)
[2021-02-07] MEDS: THIAMINE HCL 100 MG TABLET (FP) PO SCH (21:43)
[2021-02-07] MEDS: hydrOXYzine PAMOATE 25 MG CAPSULE (FP) PO PRN (21:43)
[2021-02-07] MEDS: MELATONIN 5 MG TABLETS PO SCH (21:43)
[2021-02-07] MEDS: QUEtiapine FUMARATE 300 MG TABLET PO SCH (21:43)
[2021-02-08] MEDS ORDERED: methaDONE HCL 10 MG TABLET ONE (03:25)
[2021-02-08] MEDS ORDERED: methaDONE HCL 40 MG DISPERSABLE TABLET ONE (03:26)
[2021-02-08] MEDS: methaDONE 80 MG, methaDONE 10 MG PO SCH (06:17)
[2021-02-08] MEDS: metFORMIN HCL 500 MG TABLET (FP) PO SCH (06:17)
[2021-02-08] MEDS: glipiZIDE-XL 2.5 MG TAB.ER.24 PO SCH (06:19)
[2021-02-08] MEDS: INSULIN SLIDING SCALE (NOVOLOG) 1 VIAL SQ SCH (06:19)
[2021-02-08 07:26] VITALS: BP 107/63; PULSE 107; TEMP 97.9
[2021-02-08] MEDS: NICOTINE 7 MG/24 HOURS TOPICAL PATCH TD SCH (09:05)
[2021-02-08] MEDS: amLODIPine BESYLATE 10 MG TABLET (FP) PO SCH (09:05)
[2021-02-08] MEDS: LISINOPRIL 10 MG TABLET PO SCH (09:05)
[2021-02-08] MEDS: PRENATAL VITAMINS W/ FOLIC ACID TABLET (FP) PO SCH (09:05)
== END 2021-02-08 09:10 | disposition home or self-care (01) | DRG 772 ==
LOC: YASAS 13:21 → Y5N 13:22
PROVIDERS: ADMIT Allergy & Immunology; ATTEND Allergy & Immunology
PROC: HZ42ZZZ Group Counseling for Substance Abuse Treatment, Cognitive-Behavioral (ICD-10-PCS; principal; 2021-01-28)
DX: F10.20 Alcohol dependence, uncomplicated (principal); F11.20 Opioid dependence, uncomplicated; F14.20 Cocaine dependence, uncomplicated; F17.210 Nicotine dependence, cigarettes, uncomplicated; F32.A Depression, unspecified; F43.10 Post-traumatic stress disorder, unspecified; F19.24 Other psychoactive substance dependence with psychoactive substance-induced mood disorder; F19.282 Other psychoactive substance dependence with psychoactive substance-induced sleep disorder; E11.9 Type 2 diabetes mellitus without complications; Z79.84 Long term (current) use of oral hypoglycemic drugs; Z87.828 Personal history of other (healed) physical injury and trauma; Z56.0 Unemployment, unspecified
CPT/HCPCS: 0031A; 82962; 91303